=== PATIENT | female | born 1945 | race Caucasian/White ===

== ENCOUNTER → 2017-06-13 | Outpatient (CLI) | payer MEDICARE ==
--- NOTE | 2017-06-14 09:09 | MM ---
Reason for exam: screening (asymptomatic). Last mammogram was performed 2 years and 2 months ago. History: Patient is postmenopausal, has history of other cancer at age 64, and had first child at age 34. Physical Findings: A clinical breast exam by your physician is recommended on an annual basis and results should be correlated with mammographic findings. MG 3D Screening Mammo W/Cad Bilateral CC and MLO view(s) were taken. Prior study comparison: April 15, 2015, bilateral MG screening mammo w CAD. March 20, 2014, bilateral MG screening mammo w CAD. There are scattered fibroglandular densities. There is no discrete abnormality. No significant changes when compared with prior studies. ASSESSMENT: Negative, BI-RAD 1 RECOMMENDATION: Routine screening mammogram of both breasts in 1 year.
== END | disposition home or self-care (01) ==
LOC: RADMAMWWP 10:13
PROVIDERS: ATTEND Obstetrics & Gynecology
DX: Z12.31 Encounter for screening mammogram for malignant neoplasm of breast (principal)
CPT/HCPCS: 77063; 77067

== ENCOUNTER → 2017-06-13 | Outpatient (CLI) | payer MEDICARE ==
--- NOTE | 2017-06-13 12:39 | WWHP ---
[facility] - HISTORY AND PHYSICAL DATE OF SERVICE: 06/13/2017 CHIEF COMPLAINT: The patient is here for her routine gynecologic exam and mammogram. HPI: This is a 71-year-old, G3, P3 with an LMP of 1999. She states it has been around 2 years since her last pelvic exam. She is without gynecologic complaints and denies any postmenopausal bleeding. Her last mammogram on 04/15/2015 was benign. PAST MEDICAL HISTORY: Hypothyroidism, chronic hypertension, arthritis, gastroesophageal reflux disease and osteopenia. MEDICATIONS: 1. Synthroid 25 mcg daily. 2. Candesartan 12 mg with hydrochlorothiazide 32 mg daily. 3. [place]-3 supplement one t.i.d. 4. Zyloprim 300 mg daily. 5. Protonix 40 mg daily. ALLERGIES: Allergies to PENICILLIN, which caused rash and an irregular heartbeat. PAST SURGICAL HISTORY: Right oophorectomy during her in 1981 for a benign dermoid, right ankle surgery in 1972, colonoscopy 2016. PAST OB HISTORY: Three vaginal deliveries. PAST GANG PUSHER HISTORY: She has been menopausal since 1999 and has no history of STDs. SOCIAL HISTORY: She denies tobacco and drug use and has 0 to 1 alcohol-containing drink per week. She has been since 2012 and has not been sexually active since her divorce and is not seeing anybody at this time. 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 FAMILY HISTORY: Father had type 2 diabetes. REVIEW OF SYSTEMS: Weight has been stable. She denies respiratory, cardiac or GI problems. She denies maltreatment or falling. : She infrequently can have small urinary leakage if she holds her urine for a long time. PHYSICAL EXAM: Blood pressure 115/63, height 5 feet 4 inches, weight 158 pounds, BMI 26, temperature 97.2, pulse 74. This is a well-developed, well-nourished, white female, who is alert and oriented x3, in no acute distress. HEENT is within normal limits. NECK: Supple without mass or thyromegaly. CHEST AND LUNGS: Clear to auscultation. HEART: Regular rate and rhythm. Breasts are without mass or discharge. Axillary exam is negative for adenopathy. BACK: Negative for CVA tenderness. ABDOMEN: Soft, nontender, without palpable masses. PELVIC EXAM: External genitalia reveals [id number] atrophy without lesions. Cervix and vagina reveals [id number] atrophy without lesions. The cervix is stenotic secondary to atrophy. There is no evidence of prolapse. The uterus is mid position, nongravid size and nontender. There are no palpable adnexal masses or tenderness. Rectovaginal exam is negative for mass or tenderness and is negative for occult blood. EXTREMITIES: Nontender. IMPRESSION: 1. A 71-year-old menopausal female with normal gynecologic exam. 2. History of osteopenia. PLAN: 1. Pap smear was performed. 2. Self breast examination was discussed. 3. Screening mammogram was done today. 4. Osteoporosis prevention was discussed. I have recommended re-doing a bone density testing since it has been more than 4 years since her last one and an order slip was given to the patient for this. 5. She did receive a flu shot this past fall. 6. She will return in 1 year. MMSTANFORDL / KWAMEN: [id number] /
== END | disposition home or self-care (01) ==
LOC: WWCWWP 10:11
PROVIDERS: ATTEND Obstetrics & Gynecology
DX: Z53.9 Procedure and treatment not carried out, unspecified reason (principal)

== ENCOUNTER → 2017-07-02 | Outpatient (CLI) | payer MEDICARE ==
--- NOTE | 2017-07-02 13:48 | BD ---
EXAMINATION TYPE: MG DEXA axial skeleton. DATE OF EXAM: 07/02/2017 COMPARISON: 2013 CLINICAL HISTORY: POST MENOPAUSAL. Osteoporosis screening. Height: 5'3 Weight: 168 FRAX RISK QUESTIONS: Alcohol (3 or more units per day): no Family History (Parent hip fracture): yes Glucocorticoids (More than 3mos): no (Ex: prednisone, prednisolone, methylprednisolone, dexamethasone, and hydrocortisone). History of Fracture in Adulthood: yes Secondary Osteoporosis: 1. Type 1 Diabetes: no 2. Hyperthyroidism: no 3. Menopause before 45: no 4. Malnutrition: no 5. Chronic liver disease: no Rheumatoid Arthritis: no Current Tobacco Use: no RISK FACTORS HISTORY OF: Family History of Osteoporosis: y Postmenopausal woman: y Poor Health: MEDICATIONS: Thyroid Medications: Which medication: Levothyroxine How Lon years Additional Medications: blood pressure, cholesterol , high uric acid Additional History: skin cancer 10 years ag0 EXAM MEASUREMENTS: Bone mineral densitometry was performed using the Pure[employer] System. Bone mineral density as measured about the Lumbar spine is: ----- L1-L4(G/cm2): 1.214 T Score Values are as follows: ----- L2: -0.6 ----- L3: -0.3 ----- L4: 2.3 ----- L1-L4:0.3 Bone mineral density has: Decreased -5.0% since study of: 03/20/2014 Bone mineral density about the R hip (g/cm2): 0.858 Bone mineral density about the L hip (g/cm2): 0.923 T Score values are as follows: -----R Neck: -1.3 -----L Neck: -0.8 -----R Total: -0.2 -----L Total: 0.1 Bone mineral density has: Decreased -2.3% since study of: 03/20/2014 IMPRESSION: Osteopenia (T Score between -2.5 and -1) with regards to the right hip. There is slightly increased risk of fracture and the patient may be considered for treatment. Re-Screen 2-5 years. NOTE: T-SCORE=SD OF THE YOUNG ADULT MEAN.
== END | disposition home or self-care (01) ==
LOC: RADBDWWP 12:29
PROVIDERS: ATTEND Obstetrics & Gynecology
DX: M85.851 Other specified disorders of bone density and structure, right thigh (principal); Z78.0 Asymptomatic menopausal state
CPT/HCPCS: 77080

== ENCOUNTER → 2018-02-04 | Outpatient (CLI) | payer MEDICARE ==
--- NOTE | 2018-02-04 08:40 | CT ---
EXAMINATION TYPE: CT chest w con DATE OF EXAM: 02/04/2018 COMPARISON: NONE CT abdomen pelvis dated 01/28/2014 HISTORY: abnormal CXR. CT DLP: 343.1 mGycm. Automated Exposure Control for Dose Reduction was Utilized. TECHNIQUE: CT scan of the thorax is performed following with IV Contrast, patient injected with 100 mL of Isovue 300. FINDINGS: LUNGS: There is a 3 mm pulmonary nodule along the interlobar fissure on series 4 image 28. Calcified pleural-based pulmonary nodule seen along the posterior right lower lobe measuring 6 mm on image 33, benign. Along the right middle lobe on the same image there is a 5 mm region of focal pleural thicken ing. Within the left lung apex there is a 2 mm subpleural pulmonary nodule on image 13. Along the lef t interlobar fissure there are 2 pulmonary nodules that are elongated image 25 and 27 measuring 5 mm and 4 mm respectively. Calcified benign subpleural granuloma is present along the left lower lobe lat erally on image 37. Diffuse subpleural reticulation may represent atelectasis or early developing fibrosis. Very mild anabela trilobular emphysematous change is seen. No focal consolidation, pleural effusion or pneumothorax. MEDIASTINUM: There are no greater than 1 cm hilar or mediastinal lymph nodes. No pericardial effusi on is seen. Mild coronary artery calcifications are noted. OTHER: Slight thickening of the distal esophagus at the gastroesophageal junction may relate to incom plete distention or other etiology. Gallbladder surgically absent. 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 IMPRESSION: 1. Bilateral subcentimeter pulmonary nodules, some of which are benign and related to prior granuloma tous change. In regards to the noncalcified pulmonary nodules follow-up CT is recommended in 12 month s to establish stability given the largest size of 5 mm. 2. Subpleural reticulation that can be seen in atelectasis or early developing fibrosis. Minimal back ground centrilobular emphysema. 3. Possible left renal fat containing lesion such as angiomyolipoma versus volume averaging. 4. Mild circumferential distal esophageal thickening that may relate to incomplete distention, hepati tis or other etiology.
== END | disposition home or self-care (01) ==
LOC: RADCTMAIN 06:58
PROVIDERS: ATTEND Family Medicine
DX: J43.2 Centrilobular emphysema (principal); R91.8 Other nonspecific abnormal finding of lung field; Z88.0 Allergy status to penicillin; Z88.5 Allergy status to narcotic agent; Z88.2 Allergy status to sulfonamides; Z88.8 Allergy status to other drugs, medicaments and biological substances
CPT/HCPCS: 71260; Q9967

== ENCOUNTER → 2018-02-07 | Outpatient (CLI) | payer MEDICARE ==
--- NOTE | 2018-02-08 09:18 | CT ---
EXAMINATION TYPE: CT abdomen wo/w con DATE OF EXAM: 02/07/2018 COMPARISON: 01/28/2014 CT abdomen pelvis, CT chest 02/04/2018. INDICATION: LEFT KIDNEY MASS FOUND ON PRIOR CT DLP: 941.2 mGycm, Automated exposure control for dose reduction was used. CONTRAST: 100 mL of Isovue 300. Study performed with Oral Contrast TECHNIQUE: Axial images were obtained from above the diaphragm to the iliac crests in the axial plane at 5 mm thick sections. Reconstructed images are reviewed on the computer in the coronal plane. Pr e and postcontrast imaging is performed. FINDINGS: Limited CT sections are obtained the lung bases. There is some mild compressive atelectasis within t he dependent portion of the lung bases.. CT ABDOMEN: Liver: Normal Spleen: Normal Pancreas: Slightly atrophic. Adrenal glands: The adrenal glands are normal. Gallbladder: Surgically absent Kidneys: No masses are evident. No hydronephrosis is present. No cysts are present. Delayed images were obtained through the kidneys, which remain unremarkable. No discrete renal masses are identifie d. Findings appear to more likely be related to volume averaging. Aorta: Vascular calcification is within the aorta. There is a retroaortic left renal vein. Inferior vena cava: Normal. Loops of bowel within the abdomen visualized are normal. Fecal debris is within the colon. IMPRESSIONS: 1. No discrete renal mass.
== END | disposition home or self-care (01) ==
LOC: RADCTMAIN 10:36
PROVIDERS: ATTEND Family Medicine
DX: D17.71 Benign lipomatous neoplasm of kidney (principal); Z88.0 Allergy status to penicillin; Z88.1 Allergy status to other antibiotic agents; Z88.2 Allergy status to sulfonamides; Z88.4 Allergy status to anesthetic agent; Z88.5 Allergy status to narcotic agent
CPT/HCPCS: 74170; Q9967

== ENCOUNTER 2018-02-11 08:17 | Day surgery (SDC) | payer MEDICARE ==
[2018-02-07 11:29] VITALS: BMI 27.6
[2018-02-11 08:49] VITALS: RESP 18; TEMP 97.9
[2018-02-11] MEDS: LACTATED RINGERS 1,000 ML IV SCH ×2 (08:53→08:55)
[2018-02-11] MEDS ORDERED: LIDOCAINE 1% INJ 10MG/ML (20 ML MDV) ONE (08:55)
[2018-02-11] MEDS ORDERED: PROPOFOL 10 MG/ML 20 ML VIAL IV ONE (08:55)
[2018-02-11] MEDS ORDERED: ONDANSETRON 4 MG/2 ML VIAL ONE (08:55)
[2018-02-11] MEDS ORDERED: ONDANSETRON 4 MG/2 ML VIAL IM STA (08:56)
--- NOTE | 2018-02-11 08:57 | P.GSHP ---
History of Present Illness H&P Date: 02/11/18 Chief Complaint: GERD This is a 72-year-old female who's had complaints of epigastric pain and GERD. Patient has a history of peptic ulcer disease. Patient presents today for EGD. Past Medical History Past Medical History: Asthma, GERD/Reflux, Hypertension, Thyroid Disorder Additional Past Medical History / Comment(s): gout History of Any Multi-Drug Resistant Organisms: None Reported Past Surgical History: Cholecystectomy, Orthopedic Surgery Additional Past Surgical History / Comment(s): right ankle, rt oopherectomy Past Anesthesia/Blood Transfusion Reactions: Postoperative Nausea & Vomiting ( PONV) Smoking Status: Never smoker - Past Family History Mother Family Medical History: No Reported History Medications and Allergies Home Medications Medication Instructions Recorded Confirmed Type Allopurinol [Zyloprim] 300 mg PO DAILY 03/16/16 02/07/18 History Pantoprazole Sodium [Protonix] 40 mg PO DAILY 03/16/16 02/07/18 History Levothyroxine Sodium [Synthroid] 25 mcg PO DAILY 03/17/16 02/07/18 History [place]-3 Acid Ethyl Esters [Lovaza] 3 gm PO TID 03/17/16 02/07/18 History Candesartan/Hydrochlorothiazid 1 each PO DAILY 06/13/17 02/07/18 History [[place] Hct 32-12.5 mg Tab] Albuterol Inhaler [Ventolin Hfa 1 - 2 puff INHALATION RT-Q6H PRN 02/07/18 History Inhaler] Allergies Allergy/AdvReac Type Severity Reaction Status Date / Time Penicillins Allergy Rash/Hives Verified 02/07/18 11:19 Surgical - Exam Vital Signs Temp Pulse Resp BP Pulse Ox 97.9 F 78 18 149/79 97 02/11/18 08:48 02/11/18 08:48 02/11/18 08:48 02/11/18 08:48 02/11/18 08:48 - General well developed, well nourished, no distress - Eyes PERRL - ENT normal pinna - Neck no masses - Respiratory normal expansion - Cardiovascular Rhythm: regular - Abdomen Abdomen: soft, non tender Assessment and Plan Assessment: Epigastric pain and GERD History of peptic ulcer disease We'll perform EGD.
--- NOTE | 2018-02-11 09:09 | P.OP ---
Preoperative Diagnosis: GERD Postoperative Diagnosis: Antral gastritis No significant hiatal hernia Esophagitis pathology pending Procedure(s) Performed: Colonoscopy Anesthesia: MAC Surgeon: Jesus Redmond Pathology: other (Antral, esophagus) Condition: stable Disposition: PACU Description of Procedure: The patient's placed on the endoscopy table in the lateral position. She received IV sedation. The gastric was placed oropharynx passed in the esophagus and stomach. Scope was then placed through the pylorus. The first and second portion of the duodenum appeared normal. Scope was then brought back and stomach. The antrum appeared minimally inflamed a biopsies performed. Scope was unretroflexed and remainder of the stomachAppeared normal. There is no significant hiatal hernia. The GE junction was at 40 cm. The distal esophagus appeared mildly inflamed. There is evidence of a inflammatory went. A biopsies performed. The proximal esophagus appeared normal. Scope was withdrawn for patient.
[2018-02-11 09:30] VITALS: BP 124/85; PULSE 71
== END 2018-02-11 09:40 | disposition home or self-care (01) ==
LOC: ORWHC2ENDO 08:17
PROVIDERS: ATTEND Surgery
DX: K29.50 Unspecified chronic gastritis without bleeding (principal); K21.0 Gastro-esophageal reflux disease with esophagitis; J45.909 Unspecified asthma, uncomplicated; I10 Essential (primary) hypertension; E07.9 Disorder of thyroid, unspecified; M10.9 Gout, unspecified; Z88.0 Allergy status to penicillin; Z87.11 Personal history of peptic ulcer disease; Z79.890 Hormone replacement therapy; Z79.899 Other long term (current) drug therapy
CPT/HCPCS: 88305; 43239; J2405; J2001; J2704

== ENCOUNTER → 2018-04-04 | Outpatient (CLI) | payer MEDICARE | LOC: LABPAT 12:25 | PROVIDERS: ATTEND Surgery | DX: Z01.818 Encounter for other preprocedural examination (principal); Z01.812 Encounter for preprocedural laboratory examination; K21.9 Gastro-esophageal reflux disease without esophagitis; Z79.899 Other long term (current) drug therapy | CPT/HCPCS: 84132; 93005 ==

== ENCOUNTER 2018-04-05 06:59 | Day surgery (SDC) | payer MEDICARE ==
[2018-04-03 14:16] VITALS: BMI 27.8
[~2018-04-05 06:59] MED LIST: DEXAMETHASONE SOD PHOSPHATE 10 MG/ML 1 ML VIAL IV ONE; HEPARIN SODIUM,PORCINE 5,000 UNIT/ML 1 ML VIAL SQ ONE; LACTATED RINGERS 1,000 ML IV SCH; MIDAZOLAM (PF) 2 MG/2 ML VIAL IV PRN; ONDANSETRON 4 MG/2 ML VIAL IVP ONE; ceFAZolin IN SWFI 2 GM/20 ML SYRINGE IVP ONE
--- NOTE | 2018-04-05 07:49 | P.GSHP ---
History of Present Illness H&P Date: 04/05/18 Chief Complaint: GERD This is a 72-year-old female who's had significant history of GERD. 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 She presents today for laparoscopic Joe fundoplication. Past Medical History Past Medical History: Hypertension, Osteoarthritis (OA) Additional Past Medical History / Comment(s): hiatal hernia,hx uti History of Any Multi-Drug Resistant Organisms: None Reported Past Surgical History: Cholecystectomy Additional Past Surgical History / Comment(s): right ankle, rt oopherectomy Past Anesthesia/Blood Transfusion Reactions: Family History of Problems w/ Anesthesia, Postoperative Nausea & Vomiting (PONV) Additional Past Anesthesia/Blood Transfusion Reaction / Comment(s): sister has PONV Smoking Status: Never smoker - Past Family History Mother Family Medical History: No Reported History Medications and Allergies Home Medications Medication Instructions Recorded Confirmed Type Allopurinol [Zyloprim] 300 mg PO DAILY 03/16/16 04/05/18 History Pantoprazole Sodium [Protonix] 40 mg PO 1700 03/16/16 04/05/18 History Levothyroxine Sodium [Synthroid] 25 mcg PO QAM 03/17/16 04/05/18 History [place]-3 Acid Ethyl Esters [Lovaza] 3 gm PO TID 03/17/16 04/05/18 History Candesartan/Hydrochlorothiazid 1 each PO QAM 06/13/17 04/05/18 History [[place] Hct 32-12.5 mg Tab] Albuterol Inhaler [Ventolin Hfa 1 - 2 puff INHALATION RT-Q6H PRN 02/07/18 History Inhaler] Acetaminophen Tab [Tylenol Tab] 975 mg PO Q2D PRN 04/03/18 04/05/18 History Ibuprofen [Motrin] 400 mg PO Q2D PRN 04/03/18 04/05/18 History Allergies Allergy/AdvReac Type Severity Reaction Status Date / Time Penicillins Allergy Rash/Hives Verified 04/05/18 07:34 Surgical - Exam Vital Signs Temp Pulse Resp BP Pulse Ox 98.1 F 73 16 129/72 99 04/05/18 07:26 04/05/18 07:26 04/05/18 07:26 04/05/18 07:26 04/05/18 07:26 - General well developed, well nourished, no distress - Eyes PERRL - ENT normal pinna - Neck no masses - Respiratory normal expansion - Cardiovascular Rhythm: regular - Abdomen Abdomen: soft, non tender Assessment and Plan Assessment: GERD History of Parmar's esophagus We'll perform laparoscopic Joe fundoplication.
[2018-04-05] MEDS ORDERED: ePHEDrine SULFATE/0.9% NACL/PF 50 MG/5 ML SYRINGE IV ONE (07:52)
[2018-04-05] MEDS ORDERED: PROPOFOL 10 MG/ML 20 ML VIAL IV ONE (07:52)
[2018-04-05] MEDS ORDERED: GLYCOPYRROLATE 0.2 MG/ML 2 ML VIAL ONE (07:52)
[2018-04-05] MEDS ORDERED: SUCCINYLCHOLINE CHLORIDE 100 MG/5 ML SYR IV ONE (07:52)
[2018-04-05] MEDS ORDERED: MIDAZOLAM 2 MG/2 ML VIAL ONE (07:52)
[2018-04-05] MEDS ORDERED: ROCURONIUM BROMIDE 10 MG/ML 10 ML VIAL IV ONE (07:52)
[2018-04-05] MEDS ORDERED: LIDOCAINE 1% INJ 10MG/ML (20 ML MDV) ONE (07:52)
[2018-04-05] MEDS ORDERED: NEOSTIGMINE 1 MG/ML 10 ML VIAL ONE (07:52)
[2018-04-05] MEDS ORDERED: fentaNYL (PF) 50 MCG/ML 2 ML AMP ONE (07:52)
[2018-04-05] MEDS ORDERED: CLINDAMYCIN 150 MG/ML 4 ML VIAL IVPB ONE (08:00)
[2018-04-05] MEDS ORDERED: BUPIVACAIN-EPI 0.25%-1:200,000 30 ML VIAL SQ ONE (08:31)
[2018-04-05] MEDS ORDERED: LACTATED RINGERS 1,000 ML IV ONE (08:52)
[2018-04-05] MEDS: HYDROmorphone 0.5 MG/0.5 ML SYRINGE IVP PRN ×2 (09:34→09:39)
[2018-04-05] MEDS ORDERED: ONDANSETRON 4 MG/2 ML VIAL IVP PRN (09:39)
--- NOTE | 2018-04-05 10:01 | P.OP ---
Date of Procedure: 04/05/18 Preoperative Diagnosis: GERD Postoperative Diagnosis: GERD Procedure(s) Performed: Laparoscopic Joe fundoplication Anesthesia: TSERING Surgeon: Jesus Redmond Estimated Blood Loss (ml): 5 Pathology: none sent Condition: stable Disposition: PACU Description of Procedure: The patient was placed on the operating table in the supine position. The patient received general anesthesia. And was placed in dorsal lithotomy position. The patient was prepped and draped in the usual sterile fashion. The skin incision sites were anesthetized with 1% local Xylocaine. The skin was incised in the left periumbilical area and then using a blade less 5 mm trocar under direct visualization panel cavity was entered. After adequate insufflation the laparoscope was then placed into the peritoneal cavity. Next a 5 mm trochars placed in the right epigastric position. Another 5 millimeter trocar the right lateral position. Another 5 millimeter trocar in the left lateral position a 5 mm trocar is placed in the left epigastric position. And then the initial 5 mm trocar was exchanged for a 10 mm trocar. The left lateral lobe liver was retracted. The hernia was seen. The crural defect was then dissected using the Harmonic scissors device. A 360 crural dissection was performed the esophagus stomach was reduced back into the peritoneal Cavity. The crural defect was then closed using 2-0 Ethibond suture. Next the fundus of the stomach was mobilized using the [place] scissors device. and then a 58-Swedish bougie dilator was placed oropharynx passed into the esophagus and stomach the fundal plication wrap was then performed by grasping the fundus posteriorly and bringing it around the esophagus and stomach fundoplication was then performed using 2-0 Ethibond suture. Care was taken that the fundal location rested over top of the intra-abdominal esophagus. There was no injury seen to the stomach or esophagus. The dilator was then withdrawn. The abdomen was irrigated there is no bleeding seen. The trochars were then withdrawn and then skin incision sites were closed using 3-0 Monocryl suture Steri-Strips are applied. Patient thought procedure well and sent to recovery room in stable condition.
[2018-04-05] MEDS: HYDROmorphone 1 MG/ML 1 ML SYRINGE IVP PRN ×2 (12:25→16:45)
[2018-04-05] MEDS: METOCLOPRAMIDE 5 MG/ML 2 ML VIAL IVP SCH ×2 (12:29→18:30)
[2018-04-05] MEDS: D5-0.45% NACL WITH KCL 20MEQ/L 1,000 ML IV SCH (15:49)
--- NOTE | 2018-04-05 16:24 | FL ---
Single contrast esophagram EXAMINATION TYPE: FL esophagus cervic/pharynx DATE OF EXAM: 04/05/2018 3:47 PM COMPARISON: NONE Post Op Joe. 37 secs fluoro. 50 ml Isovue 370 given orally, Lot# [id number], EXP# Sep 2020. CLINICAL HISTORY: Status post [place] fundoplication The patient ingested contrast without difficulty or delay. Noted are changes of [place] fundoplicatio n. There is no evidence for leak or obstruction. Small amount of residual contrast within the distal esophagus. IMPRESSION: Post-surgical change of [place] fundoplication without evidence for leak or obstruction.
[2018-04-06] MEDS: FAMOTIDINE 20 MG/2 ML VIAL IV SCH ×2 (00:03→08:03)
[2018-04-06] MEDS: METOCLOPRAMIDE 5 MG/ML 2 ML VIAL IVP SCH ×2 (00:03→07:10)
[2018-04-06] MEDS: HYDROmorphone 1 MG/ML 1 ML SYRINGE IVP PRN (00:04)
[2018-04-06] MEDS: D5-0.45% NACL WITH KCL 20MEQ/L 1,000 ML IV SCH ×2 (00:04→03:06)
[2018-04-06] MEDS ORDERED: ACETAMINOPHEN TAB 325 MG TAB PO PRN (08:07)
[2018-04-06] MEDS ORDERED: ENOXAPARIN 40 MG/0.4 ML SYRINGE SQ SCH (09:00)
--- NOTE | 2018-04-06 12:02 | P.PN ---
Subjective Progress Note Date: 04/06/18 Principal diagnosis: Post-Joe Patient doing well today. Denies any significant pain. Tolerating liquids. Upper GI shows no obstruction. She is afebrile. Objective - Vital Signs Vital signs: Vital Signs Temp 98.4 F 04/06/18 07:55 Pulse 62 04/06/18 07:55 Resp 16 04/06/18 07:55 BP 101/57 04/06/18 07:55 Pulse Ox 94 L 04/06/18 07:55 Intake & Output 04/05/18 04/06/18 04/06/18 18:59 06:59 18:59 Intake Total 1900 Output Total 405 Balance 1495 Weight 71.214 kg Intake: IV 1300 Oral 600 Output: Urine 400 Estimated Blood Loss 5 Other: # Voids 1 1 3 # Bowel Movements 1 - Exam Abdomen: Soft, mild tenderness at incision sites, incisions clean and dry Assessment and Plan (1) GERD (gastroesophageal reflux disease) Narrative/Plan: Continue liquid diet. May discharge today. Follow-up one week. Current Visit: Yes Status: Acute Code(s): K21.9 - GASTRO-ESOPHAGEAL REFLUX DISEASE WITHOUT ESOPHAGITIS SNOMED Code(s): 436234796
[2018-04-06 12:21] VITALS: BP 123/68; PULSE 56; RESP 18; TEMP 98
== END 2018-04-06 13:17 ==
LOC: OR 06:59 → 6PED 09:48 → OR 04-06 13:17
PROVIDERS: ATTEND Surgery
DX: K22.70 Barrett's esophagus without dysplasia (principal); K21.9 Gastro-esophageal reflux disease without esophagitis; I10 Essential (primary) hypertension; M19.90 Unspecified osteoarthritis, unspecified site; Z79.890 Hormone replacement therapy; Z79.899 Other long term (current) drug therapy; Z88.0 Allergy status to penicillin; E07.9 Disorder of thyroid, unspecified
CPT/HCPCS: 74210; 43280; J1644; J1100; J2765 ×2; J2405; J1650; J1170 ×3; Q9967

== ENCOUNTER 2018-05-06 10:28 | Day surgery (SDC) | payer MEDICARE ==
[2018-05-02 12:37] VITALS: BMI 26.7
[~2018-05-06 10:28] MED LIST changes: -DEXAMETHASONE SOD PHOSPHATE 10 MG/ML 1 ML VIAL IV ONE; -HEPARIN SODIUM,PORCINE 5,000 UNIT/ML 1 ML VIAL SQ ONE; -MIDAZOLAM (PF) 2 MG/2 ML VIAL IV PRN; -ONDANSETRON 4 MG/2 ML VIAL IVP ONE; -ceFAZolin IN SWFI 2 GM/20 ML SYRINGE IVP ONE
[2018-05-06 10:58] VITALS: RESP 16; TEMP 97.4
[2018-05-06] MEDS ORDERED: ONDANSETRON 4 MG/2 ML VIAL IVP ONE (11:12)
[2018-05-06] MEDS ORDERED: PROPOFOL 10 MG/ML 20 ML VIAL IV ONE (12:06)
--- NOTE | 2018-05-06 12:09 | P.GSHP ---
History of Present Illness H&P Date: 05/06/18 Chief Complaint: GI bleed This is a 72-year-old female who has had a positive colon guard Test. Patient presents today for colonoscopy for GI bleed. Past Medical History Past Medical History: Hypertension, Osteoarthritis (OA) Additional Past Medical History / Comment(s): positive cologard, taking antibiotic for uti History of Any Multi-Drug Resistant Organisms: None Reported Past Surgical History: Cholecystectomy, Orthopedic Surgery Additional Past Surgical History / Comment(s): right ankle, rt oopherectomy. Lap meeta Past Anesthesia/Blood Transfusion Reactions: Family History of Problems w/ Anesthesia, Postoperative Nausea & Vomiting (PONV) Additional Past Anesthesia/Blood Transfusion Reaction / Comment(s): sister has PONV Smoking Status: Never smoker - Past Family History Mother Family Medical History: No Reported History Medications and Allergies Home Medications Medication Instructions Recorded Confirmed Type Allopurinol [Zyloprim] 300 mg PO DAILY 03/16/16 05/02/18 History Levothyroxine Sodium [Synthroid] 25 mcg PO QAM 03/17/16 05/06/18 History [place]-3 Acid Ethyl Esters [Lovaza] 3 gm PO TID 03/17/16 05/02/18 History Candesartan/Hydrochlorothiazid 1 each PO QAM 06/13/17 05/02/18 History [[place] Hct 32-12.5 mg Tab] Albuterol Inhaler [Ventolin Hfa 1 - 2 puff INHALATION RT-Q6H PRN 02/07/18 History Inhaler] Acetaminophen Tab [Tylenol Tab] 500 mg PO BID PRN 04/03/18 05/02/18 History Cetirizine HCl [Zyrtec] 10 mg PO DAILY 05/02/18 05/02/18 History Ciprofloxacin HCl [Cipro] 500 mg PO Q12HR 05/02/18 05/02/18 History Allergies Allergy/AdvReac Type Severity Reaction Status Date / Time Penicillins Allergy Severe Rash/Hives Verified 05/02/18 12:17 Surgical - Exam Vital Signs Temp Pulse Resp BP Pulse Ox 97.4 F L 71 16 137/65 97 05/06/18 10:57 05/06/18 10:57 05/06/18 10:57 05/06/18 10:57 05/06/18 10:57 - General well developed, no distress - Eyes PERRL - ENT normal pinna - Neck no masses - Respiratory normal expansion - Cardiovascular Rhythm: regular - Abdomen Abdomen: soft, non tender Assessment and Plan Assessment: GI bleed. We'll perform colonoscopy.
--- NOTE | 2018-05-06 12:23 | P.OP ---
Date of Procedure: 05/06/18 Preoperative Diagnosis: GI bleed Postoperative Diagnosis: External hemorrhoids Diverticulosis Procedure(s) Performed: Colonoscopy Anesthesia: MAC Surgeon: Jesus Redmond Pathology: none sent Condition: stable Disposition: PACU Description of Procedure: The patient's placed on the endoscopy table in the lateral position. She received IV sedation. The digital rectal exam was performed which revealed no ebonized. The flexible colonoscope was then placed patient anus and passed throughout the entire colon. The ileocecal valve was visualized. Cecum, ascending and transverse colon appeared normal. In the descending and sigmoid colon there is extensive diverticular changes. There is no evidence of active diverticulitis. The scope was then brought back the rectum and this appeared normal. Scope withdrawn through the anus and internal and external hemorrhoids are seen. The scope was withdrawn for patient. There is known to any active GI bleed. It is presumed that the patient's positive GI bleed test was due to hemorrhoids or the diverticular.
[2018-05-06 13:02] VITALS: BP 118/76; PULSE 70
== END 2018-05-06 13:36 | disposition home or self-care (01) ==
LOC: ORWHC2ENDO 10:28
PROVIDERS: ATTEND Surgery
DX: K57.30 Diverticulosis of large intestine without perforation or abscess without bleeding (principal); K64.4 Residual hemorrhoidal skin tags; K64.8 Other hemorrhoids; I10 Essential (primary) hypertension; M19.90 Unspecified osteoarthritis, unspecified site; Z88.0 Allergy status to penicillin; Z79.899 Other long term (current) drug therapy; Z79.890 Hormone replacement therapy; Z90.49 Acquired absence of other specified parts of digestive tract; Z79.2 Long term (current) use of antibiotics
CPT/HCPCS: 45378; J2405; J2704

== ENCOUNTER → 2018-06-25 | Outpatient (CLI) | payer MEDICARE ==
[2018-06-25 11:00] VITALS: BP 117/58; PULSE 81; RESP 18; TEMP 96.5; BMI 26.5
--- NOTE | 2018-06-25 13:00 | P.HPOB ---
History of Present Illness H&P Date: 06/25/18 Chief Complaint: The patient is here for her routine gynecologic exam and ma mmogram. This is a 72 year old G3 PIII with an LMP of 2000. The patient states she has had recurrent urinary tract infections during the past year. She states she is typically gotten one or 2 per year but seems to have gotten them much more frequently this year. She has been treated by her primary care physician and has also seen a urologist for this. She was prescribed estrogen vaginal cream by one of her physicians. She is otherwise without complaints and denies any urinary symptoms at this time. Her last urinary tract infection was treated about 6 weeks ago. She is not sexually active and has not been sexually active during the past year. She denies any postmenopausal bleeding. She is requesting to have her urine tested to see if she has an early urinary tract infection. Review of Systems She has lost about 8 pounds over the last year.. She denies respiratory, cardiac and G.I. problems. She denies maltreatment or problems with falling. : she denies any significant problems with urinary leakage. She has had recurrent urinary tract infections as in the HPI. Past Medical History Past Medical History: GERD/Reflux, Hypertension, Osteoarthritis (OA), Thyroid Disorder Additional Past Medical History / Comment(s): Hypothyroid. Osteopenia. 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 Previous record of rectory for dermoid cyst in 1981. History of Any Multi-Drug Resistant Organisms: None Reported Past Surgical History: Cholecystectomy, Orthopedic Surgery Additional Past Surgical History / Comment(s): right ankle, rt oopherectomy. 04/05/2018 Lap meeta for hiatal hernia. Colonoscopy 2014. Past Anesthesia/Blood Transfusion Reactions: Family History of Problems w/ Anesthesia, Postoperative Nausea & Vomiting (PONV) Additional Past Anesthesia/Blood Transfusion Reaction / Comment(s): sister has PONV Past Psychological History: Depression Smoking Status: Never smoker Past Alcohol Use History: Rare (0 to 1 per month) Past Drug Use History: None Reported Additional History: She has been since 2012 has not been sexually active and is not seen anybody at this time. 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 - Past Family History Mother Family Medical History: No Reported History Father Family Medical History: Diabetes Mellitus Medications and Allergies Home Medications Medication Instructions Recorded Confirmed Type Allopurinol [Zyloprim] 300 mg PO DAILY 03/16/16 05/02/18 History Levothyroxine Sodium [Synthroid] 25 mcg PO QAM 03/17/16 05/06/18 History [place]-3 Acid Ethyl Esters [Lovaza] 3 gm PO TID 03/17/16 05/02/18 History Candesartan/Hydrochlorothiazid 1 each PO QAM 06/13/17 05/02/18 History [Atacand Hct 32-12.5 mg Tab] Cetirizine HCl [Zyrtec] 10 mg PO DAILY 05/02/18 05/02/18 History Azithromycin [Zithromax] 500 mg PO DAILY 06/25/18 06/25/18 History Estradiol Cream [Estrace Cream 1 gm VAGINAL Q7DAYS 06/25/18 06/25/18 History 0.01%] Fluconazole 200 mg PO DAILY 06/25/18 06/25/18 History Allergies Allergy/AdvReac Type Severity Reaction Status Date / Time Penicillins Allergy Severe Rash/Hives Verified 06/25/18 10:50 Exam Vital Signs Temp Pulse Resp BP Pulse Ox 06/25/18 10:56 96.5 F L 81 18 117/58 95 Intake and Output 06/24/18 06/25/18 06/25/18 22:59 06:59 14:59 Other: Weight 68.039 kg Height 5'3", weight 150 pounds, BMI 26.6. This is a well-developed well-nourished white female who is alert and oriented times 3 in no acute distress. HEENT: Within normal limits. NECK: Supple without mass or thyromegaly. CHEST AND LUNGS: Clear to auscultation. HEART: Regular rate and rhythm. BREASTS: Are without mass or discharge. AXILLARY EXAM: Negative for adenopathy. BACK: Negative for CVA tenderness. ABDOMEN: Soft, nontender, without palpable masses. PELVIC EXAM: Normal external genitalia with mild to moderate atrophy. Cervix and vagina appear normal with mild to moderate atrophy. There is no unusual discharge. There is a grade 1 to 2 rectocele. There is no evidence of cystocele even with Valsalva. There is no evidence of the uterine prolapse. The uterus is midposition, nongravid size and nontender. There are no palpable adnexal masses or tenderness. RECTAL EXAM: rectovaginal exam is negative for mass or tenderness and is negative for occult blood and confirms a small rectocele. EXTREMITIES: Nontender. IMPRESSION: 1. 72-year-old menopausal female with grade 1 to 2 rectocele which is asy mptomatic. 2. History of recurrent urinary tract infections per the patient. PLAN: 1. Pap smear was deferred associated normal one on 06/13/2017. 2. Self breast awareness was discussed with the patient. 3. Screening mammogram will be done today. 4. Clean catch urinalysis and culture with sensitivity have been obtained. 5. We have had a long discussion regarding her urinary tract infections. She will try using some estrogen cream that has been already prescribed to her near the urethral opening. She will also try to completely empty the bladder by spending more time on the toilet and by relaxing and not straining. If she continues to have recurrent urinary tract infections, I have recommended that she see her urologist for this. 6. She states she is planning on doing a colonoscopy in the near future because of a positive cologuard test. This is being arranged by her primary care physician. 7. She was advised to return in one year for her annual well woman exam.
[2018-06-25 20:39] LABS: Appearance,Urine Clear (Clear); Bilirubin,Urine Negative (Negative); Blood,Urine Negative (Negative); Color,Urine Yellow; Glucose,Urine (UA) Negative (Negative); Ketones,Urine Negative (Negative); Leukocyte Esterase,Urine Negative (Negative); Nitrite,Urine Negative (Negative); PH, Urine 5.5 (5.0-8.0); Protein,Urine Negative (Negative); Specific Gravity,Urine 1.017 (1.001-1.035); Urobilinogen,Urine <2.0 mg/dL (<2.0)
--- NOTE | 2018-06-26 10:16 | MM ---
Reason for exam: screening (asymptomatic). Last mammogram was performed 1 year ago. History: Patient is postmenopausal, has history of other cancer at age 64, and had first child at age 34. Physical Findings: A clinical breast exam by your physician is recommended on an annual basis and results should be correlated with mammographic findings. MG 3D Screening Mammo W/Cad Bilateral CC and MLO view(s) were taken. Prior study comparison: June 13, 2017, bilateral MG 3d screening mammo w/cad. April 15, 2015, bilateral MG screening mammo w CAD. There are scattered fibroglandular densities. There are benign appearing round calcifications bilaterally. There is chronic nodularity in the right breast. There is no discrete abnormality. ASSESSMENT: Benign, BI-RAD 2 RECOMMENDATION: Routine screening mammogram of both breasts in 1 year.
== END | disposition home or self-care (01) ==
LOC: WWCWWP 10:33
PROVIDERS: ATTEND Obstetrics & Gynecology
DX: Z12.31 Encounter for screening mammogram for malignant neoplasm of breast (principal); Z87.440 Personal history of urinary (tract) infections
CPT/HCPCS: 77063; 77067; 81003; 87086

== ENCOUNTER 2018-10-13 12:21 | Inpatient (IN) | payer MEDICARE ==
[2018-10-13] MEDS ORDERED: SODIUM CHLORIDE 0.9% 500 ML 500 ML IV STA (12:45)
--- NOTE | 2018-10-13 12:58 | ED ---
General Adult HPI - General Chief complaint: Abdominal Pain Stated complaint: Poss appendicitis Time Seen by Provider: 10/13/18 12:39 Source: patient, RN notes reviewed Mode of arrival: ambulatory Limitations: no limitations - History of Present Illness Initial comments: 72-year-old female with a past medical history of hypertension, GERD, hypothyroidism, osteoarthritis presents to the emergency department for a chief complaint of Right lower quadrant pain 2-3 days. Patient states she has noticed this pain and it is a sharp pain in nature. States it is pretty constant in nature. States she has a history of diverticulitis but this feels different. States she was seen at urgent care where she had a urinalysis done that was negative and sent to the emergency department for rule out appendicitis. Patient denies any fevers or chills. Denies any nausea vomiting or diarrhea. States bowel movements are normal. Patient has had a cholecystect lillie and a right oophorectomy. Patient did have a Joe fundoplication completed by Dr. Redmond in March and a normal colonoscopy in April.Patient has no other complaints at this time including shortness of breath, chest pain, abdominal pain, nausea or vomiting, headache, or visual changes. - Related Data Home Medications Medication Instructions Recorded Confirmed Allopurinol [Zyloprim] 300 mg PO DAILY 03/16/16 05/02/18 Levothyroxine Sodium [Synthroid] 25 mcg PO QAM 03/17/16 05/06/18 [place]-3 Acid Ethyl Esters [Lovaza] 3 gm PO TID 03/17/16 05/02/18 Candesartan/Hydrochlorothiazid 1 each PO QAM 06/13/17 05/02/18 [Atacand Hct 32-12.5 mg Tab] Cetirizine HCl [Zyrtec] 10 mg PO DAILY 05/02/18 05/02/18 Azithromycin [Zithromax] 500 mg PO DAILY 06/25/18 06/25/18 Estradiol Cream [Estrace Cream 1 gm VAGINAL Q7DAYS 06/25/18 06/25/18 0.01%] Fluconazole 200 mg PO DAILY 06/25/18 06/25/18 Allergies Allergy/AdvReac Type Severity Reaction Status Date / Time Penicillins Allergy Severe Rash/Hives Verified 10/13/18 12:37 Sulfa (Sulfonamide Allergy Rash/Hives Verified 10/13/18 12:37 Antibiotics) Review of Systems ROS Statement: Those systems with pertinent positive or pertinent negative responses have been documented in the HPI. ROS Other: All systems not noted in ROS Statement are negative. Past Medical History Past Medical History: GERD/Reflux, Hypertension, Osteoarthritis (OA), Thyroid Disorder Additional Past Medical History / Comment(s): Hypothyroid. Osteopenia.dermoid cyst in 1982. History of Any Multi-Drug Resistant Organisms: None Reported Past Surgical History: Cholecystectomy, Orthopedic Surgery Additional Past Surgical History / Comment(s): right ankle, rt oopherectomy. 04/05/2018 Lap joe for hiatal hernia. Colonoscopy 2014. Past Anesthesia/Blood Transfusion Reactions: Family History of Problems w/ Anesthesia, Postoperative Nausea & Vomiting (PONV) Additional Past Anesthesia/Blood Transfusion Reaction / Comment(s): sister has PONV Past Psychological History: Depression Smoking Status: Never smoker Past Alcohol Use History: Rare Past Drug Use History: None Reported - Past Family History Mother Family Medical History: No Reported History Father Family Medical History: Diabetes Mellitus General Exam Limitations: no limitations General appearance: alert, in no apparent distress Head exam: Present: atraumatic, normocephalic, normal inspection Eye exam: Present: normal appearance, PERRL, EOMI. Absent: scleral icterus, conjunctival injection, periorbital swelling ENT exam: Present: normal exam, mucous membranes moist Neck exam: Present: normal inspection, full ROM. Absent: tenderness, meningismus, lymphadenopathy Respiratory exam: Present: normal lung sounds bilaterally. Absent: respiratory distress, wheezes, rales, rhonchi, stridor Cardiovascular Exam: Present: regular rate, normal rhythm, normal heart sounds. Absent: systolic murmur, diastolic murmur, rubs, gallop, clicks GI/Abdominal exam: Present: soft, tenderness (Right lower quadrant tenderness, no rebound or guarding.), normal bowel sounds. Absent: distended, guarding, rebound, rigid Neurological exam: Present: alert, oriented X3, CN II-XII intact Psychiatric exam: Present: normal affect, normal mood Course Vital Signs 10/13/18 10/13/18 12:34 15:02 Temperature 98.2 F Pulse Rate 68 65 Respiratory 18 16 Rate Blood Pressure 116/76 122/82 O2 Sat by Pulse 98 98 Oximetry Medical Decision Making - Medical Decision Making 72-year-old female with a past medical history of hypertension, GERD, hypothyroidism presents to the emergency department for a chief complaint of right lower quadrant pain 2-3 days. Patient states she has noticed this pain pretty consistently for the past few days. Patient does have a history of diverticulitis but this feels different. States she was seen at urgent care and they were concerned about appendicitis so sent her to the emergency department. Vitals are stable throughout her ER stay. On examination patient does have some right lower quadrant tenderness, no guarding or rebound. No McBurney point tenderness. She also has some suprapubic tenderness. No significant left lower quadrant tenderness. CBC does show a hemoglobin of 8.8. Patient apparently does not have a history of anemia but is in no distress at this time. Occult blood was negative. CMP is unremarkable. CT abdomen and pelvis with contrast that show acute mid sigmoid diverticulitis with mild to moderate surrounding inflammatory change. No abscess or free air. There is also a vague hypodense area in the pancreatic head. Not clearly seen previously. Recommends correlation with tomorrow markers and CT versus MRI to exclude early mass. Because of these findings patient will be admitted for IV antibiotics as well as GI consult. - Lab Data Result diagrams: 10/13/18 13:15 10/13/18 13:15 Lab Results 10/13/18 10/13/18 10/13/18 Range/Units 13:15 13:15 13:15 WBC 6.2 (3.8-10.6) k/uL RBC 2.81 L (3.80-5.40) m/uL Hgb 8.8 L (11.4-16.0) gm/dL Hct 26.7 L (34.0-46.0) % MCV 95.1 (80.0-100.0) fL MCH 31.4 (25.0-35.0) pg MCHC 33.0 (31.0-37.0) g/dL RDW 15.7 H (11.5-15.5) % Plt Count 387 (150-450) k/uL Neutrophils % 60 % Lymphocytes % 22 % Monocytes % 7 % Eosinophils % 7 % Basophils % 1 % Neutrophils # 3.7 (1.3-7.7) k/uL Lymphocytes # 1.3 (1.0-4.8) k/uL Monocytes # 0.5 (0-1.0) k/uL Eosinophils # 0.4 (0-0.7) k/uL Basophils # 0.1 (0-0.2) k/uL PT (9.0-12.0) sec INR (<1.2) APTT (22.0-30.0) sec Sodium 138 (137-145) mmol/L Potassium 4.2 (3.5-5.1) mmol/L Chloride 98 (98-107) mmol/L Carbon Dioxide 29 (22-30) mmol/L Anion Gap 11 mmol/L BUN 11 (7-17) mg/dL Creatinine 0.74 (0.52-1.04) mg/dL Est GFR (CKD-EPI)AfAm >90 (>60 ml/min/1.73 sqM) Est GFR (CKD-EPI)NonAf 83 (>60 ml/min/1.73 sqM) Glucose 90 (74-99) mg/dL Plasma Lactic Acid Dre 1.2 (0.7-2.0) mmol/L Calcium 9.8 (8.4-10.2) mg/dL Total Bilirubin 0.6 (0.2-1.3) mg/dL AST 30 (14-36) U/L ALT 32 (9-52) U/L Alkaline Phosphatase 79 (38-126) U/L Total Protein 7.8 (6.3-8.2) g/dL Albumin 4.6 (3.5-5.0) g/dL Amylase 57 (30-110) U/L Lipase 69 (23-300) U/L Urine Color Urine Appearance (Clear) Urine pH (5.0-8.0) Ur Specific [place] (1.001-1.035) Urine Protein (Negative) Urine Glucose (UA) (Negative) Urine Ketones (Negative) Urine Blood (Negative) Urine Nitrite (Negative) Urine Bilirubin (Negative) Urine Urobilinogen (<2.0) mg/dL Ur Leukocyte Esterase (Negative) Stool Occult Blood (Negative) Blood Type Blood Type Recheck Antibody Screen Spec Expiration Date 10/13/18 10/13/18 10/13/18 Range/Units 13:15 13:15 13:35 WBC (3.8-10.6) k/uL RBC (3.80-5.40) m/uL Hgb (11.4-16.0) gm/dL Hct (34.0-46.0) % MCV (80.0-100.0) fL MCH (25.0-35.0) pg MCHC (31.0-37.0) g/dL RDW (11.5-15.5) % Plt Count (150-450) k/uL Neutrophils % % Lymphocytes % % Monocytes % % Eosinophils % % Basophils % % Neutrophils # (1.3-7.7) k/uL Lymphocytes # (1.0-4.8) k/uL Monocytes # (0-1.0) k/uL Eosinophils # (0-0.7) k/uL Basophils # (0-0.2) k/uL PT 9.6 (9.0-12.0) sec INR 0.9 (<1.2) APTT 23.8 (22.0-30.0) sec Sodium (137-145) mmol/L Potassium (3.5-5.1) mmol/L Chloride (98-107) mmol/L Carbon Dioxide (22-30) mmol/L Anion Gap mmol/L BUN (7-17) mg/dL Creatinine (0.52-1.04) mg/dL Est GFR (CKD-EPI)AfAm (>60 ml/min/1.73 sqM) Est GFR (CKD-EPI)NonAf (>60 ml/min/1.73 sqM) Glucose (74-99) mg/dL Plasma Lactic Acid Dre (0.7-2.0) mmol/L Calcium (8.4-10.2) mg/dL Total Bilirubin (0.2-1.3) mg/dL AST (14-36) U/L ALT (9-52) U/L Alkaline Phosphatase (38-126) U/L Total Protein (6.3-8.2) g/dL Albumin (3.5-5.0) g/dL Amylase (30-110) U/L Lipase (23-300) U/L Urine Color Yellow Urine Appearance Clear (Clear) Urine pH 5.5 (5.0-8.0) Ur Specific [place] 1.020 (1.001-1.035) Urine Protein Negative (Negative) Urine Glucose (UA) Negative (Negative) Urine Ketones 1+ H (Negative) Urine Blood Negative (Negative) Urine Nitrite Negative (Negative) Urine Bilirubin Negative (Negative) Urine Urobilinogen <2.0 (<2.0) mg/dL Ur Leukocyte Esterase Negative (Negative) Stool Occult Blood (Negative) Blood Type O Positive Blood Type Recheck CABO Indicated Antibody Screen NEGATIVE Spec Expiration Date 10/16/2018 - 231410/13/18 Range/Units 14:37 WBC (3.8-10.6) k/uL RBC (3.80-5.40) m/uL Hgb (11.4-16.0) gm/dL Hct (34.0-46.0) % MCV (80.0-100.0) fL MCH (25.0-35.0) pg MCHC (31.0-37.0) g/dL RDW (11.5-15.5) % Plt Count (150-450) k/uL Neutrophils % % Lymphocytes % % Monocytes % % Eosinophils % % Basophils % % Neutrophils # (1.3-7.7) k/uL Lymphocytes # (1.0-4.8) k/uL Monocytes # (0-1.0) k/uL Eosinophils # (0-0.7) k/uL Basophils # (0-0.2) k/uL PT (9.0-12.0) sec INR (<1.2) APTT (22.0-30.0) sec Sodium (137-145) mmol/L Potassium (3.5-5.1) mmol/L Chloride (98-107) mmol/L Carbon Dioxide (22-30) mmol/L Anion Gap mmol/L BUN (7-17) mg/dL Creatinine (0.52-1.04) mg/dL Est GFR (CKD-EPI)AfAm (>60 ml/min/1.73 sqM) Est GFR (CKD-EPI)NonAf (>60 ml/min/1.73 sqM) Glucose (74-99) mg/dL Plasma Lactic Acid Dre (0.7-2.0) mmol/L Calcium (8.4-10.2) mg/dL Total Bilirubin (0.2-1.3) mg/dL AST (14-36) U/L ALT (9-52) U/L Alkaline Phosphatase (38-126) U/L Total Protein (6.3-8.2) g/dL Albumin (3.5-5.0) g/dL Amylase (30-110) U/L Lipase (23-300) U/L Urine Color Urine Appearance (Clear) Urine pH (5.0-8.0) Ur Specific [place] (1.001-1.035) Urine Protein (Negative) Urine Glucose (UA) (Negative) Urine Ketones (Negative) Urine Blood (Negative) Urine Nitrite (Negative) Urine Bilirubin (Negative) Urine Urobilinogen (<2.0) mg/dL Ur Leukocyte Esterase (Negative) Stool Occult Blood Negative (Negative) Blood Type Blood Type Recheck Antibody Screen Spec Expiration Date Disposition Clinical Impression: Diverticulitis, Anemia, Pancreatic mass Disposition: ADMITTED IP TO THIS HOSP Is patient prescribed a controlled substance at d/c from ED?: No Referrals: Reza Cook DO [Primary Care Provider] - 1-2 days Time of Disposition: 15:18
[2018-10-13 13:32] LABS: Basophils # (A) 0.1 k/uL (0-0.2); Basophils % (A) 1 %; Eosinophils # (A) 0.4 k/uL (0-0.7); Eosinophils % (A) 7 %; HCT 26.7 % (34.0-46.0); HGB 8.8 gm/dL (11.4-16.0); Lymphocytes # (A) 1.3 k/uL (1.0-4.8); Lymphocytes % (A) 22 %; MCH 31.4 pg (25.0-35.0); MCV 95.1 fL (80.0-100.0); Monocytes # (A) 0.5 k/uL (0-1.0); Monocytes % (A) 7 %; Neutrophils # (A) 3.7 k/uL (1.3-7.7); Neutrophils % (A) 60 %; Platelet Count 387 k/uL (150-450); RBC 2.81 m/uL (3.80-5.40); RDW 15.7 % (11.5-15.5); WBC 6.2 k/uL (3.8-10.6)
[2018-10-13 13:40] LABS: ALT 32 U/L (9-52); AST 30 U/L (14-36); African American GFR (CKD) >90 (>60 ml/min/1.73 sqM); Albumin 4.6 g/dL (3.5-5.0); Alkaline Phosphatase 79 U/L (38-126); Amylase 57 U/L (30-110); Anion Gap 11 mmol/L; Blood Urea Nitrogen 11 mg/dL (7-17); Calcium 9.8 mg/dL (8.4-10.2); Carbon Dioxide 29 mmol/L (22-30); Chloride 98 mmol/L (98-107); Glucose 90 mg/dL (74-99); Lipase 69 U/L (23-300); Potassium 4.2 mmol/L (3.5-5.1); Sodium 138 mmol/L (137-145); Total Bilirubin 0.6 mg/dL (0.2-1.3); Total Protein 7.8 g/dL (6.3-8.2)
[2018-10-13 13:43] LABS: Appearance,Urine Clear (Clear); Bilirubin,Urine Negative (Negative); Blood,Urine Negative (Negative); Color,Urine Yellow; Glucose,Urine (UA) Negative (Negative); Ketones,Urine 1+ (Negative); Leukocyte Esterase,Urine Negative (Negative); Nitrite,Urine Negative (Negative); PH, Urine 5.5 (5.0-8.0); Protein,Urine Negative (Negative); Urobilinogen,Urine <2.0 mg/dL (<2.0)
[2018-10-13 14:30] LABS: INR 0.9 (<1.2); Partial Thromboplastin Time 23.8 sec (22.0-30.0); Prothrombin Time 9.6 sec (9.0-12.0)
--- NOTE | 2018-10-13 14:46 | CT ---
EXAMINATION TYPE: CT abdomen pelvis w con DATE OF EXAM: 10/13/2018 COMPARISON: 02/07/2018 HISTORY: 72-year-old female Right lower quadrant pain. TECHNIQUE: Contiguous axial scanning of the abdomen and pelvis following administration of 100 ml Iso naomie 300 IV contrast. Delayed images through the kidneys and coronal/sagittal reconstructions perform ed. CT DLP: 800.8 mGycm Automated exposure control for dose reduction was used. FINDINGS: Heart upper limits of normal in size without pericardial effusion. Strandy bibasilar atelectasis or s carring. Postsurgical changes of Joe fundoplication are demonstrated. No focal liver lesion. Mild prominence to the bile duct unchanged post cholecystectomy status. There is a vague area of 1.4 x 0.7 cm hypodensity in the pancreatic head region which is not really s een previously, reference axial image 32. Cholecystectomy clips. Portal venous system is patent. Adrenal glands, kidneys, spleen appear within normal limits. Some prominent fluid-filled small bowel loops in the pelvis and also the left side of the abdomen jose david suring up to 2.9 cm. No dilated small bowel loops or discrete transition point is identified. No mesenteric or retroperitoneal lymphadenopathy. Retroaortic left renal vein. Postsurgical changes right lower quadrant could relate to prior appendectomy or prior bowel resection . There is sigmoid diverticulosis with focal wall thickening and mild to moderate surrounding pericolon ic inflammatory fat stranding along the mid sigmoid. Bladder nondistended. Uterus is visualized. Ovaries not well seen, either small or surgically absent. No abnormal fluid collection in the pelvis or pelvic adenopathy seen. Mild degenerative changes at the hips. Facet arthropathy and degenerative disc disease mid to lower l umbar spine. IMPRESSION: 1. EXAM POSITIVE FOR ACUTE MID SIGMOID DIVERTICULITIS. THERE IS [id number] SURROUNDING INFLAMMA TORY CHANGE WITHOUT ABSCESS OR FREE AIR. 2. SECONDARY MILD SMALL BOWEL ILEUS. 3. A VAGUE 1.4 X 0.7 CM HYPODENSE AREA IN THE PANCREATIC HEAD REGION COULD BE PARTIAL VOLUME AVERAGIN G ARTIFACT. THIS WAS NOT CLEARLY SEEN PREVIOUSLY, RECOMMEND CORRELATION WITH TUMOR MARKERS AND TEJINDER SE TWO-MONTH FOLLOW-UP PANCREAS PROTOCOL CT OR MRI TO EXCLUDE AN EARLY SMALL MASS.
[2018-10-13] MEDS ORDERED: NALOXONE 0.4 MG/ML 1 ML VIAL IV PRN (15:19)
[2018-10-13] MEDS ORDERED: MORPHINE SULFATE 4 MG/ML SYRINGE IV PRN (15:19)
[2018-10-13] MEDS ORDERED: ONDANSETRON 4 MG/2 ML VIAL IVP PRN (15:19)
[2018-10-13] MEDS: SODIUM CHLORIDE 0.9% 1,000 ML IV SCH (16:08)
[2018-10-13] MEDS: metroNIDAZOLE-NS PMX 500 MG in SALINE 1 100ML.BAG IVPB SCH ×2 (17:45→22:40)
--- NOTE | 2018-10-13 18:10 | P.HPIM ---
History of Present Illness H&P Date: 10/13/18 This is a 72-year-old lady patient of Dr. Cook. She has underlying history of hypertension hypothyroidism, GERD admitted to the emergency room secondary to right lower quadrant pain for the past 2-3 days. Patient is sharp, 6 out of 10, constant with symptoms that is worrisome for her eyes she thought that this could be related to the appendix, patient has prior history of diverticulitis in the past in this feels quite different. She was seen in urgent care and urinalysis was done and was subsequently sent to the hospital for evaluation to rule out appendicitis. Patient had a normal colonoscopy in September while he of [address] Romeo Peng. Patient denies melena hematochezia, no sick contacts, no fever no chills. Imaging studies in the emergency room showed CAT scan of the abdomen and pelvis shows cholecystectomy with bag area in the pancreatic head 1.4 x 0.7 cm hypodensity, which is not seen previously, surgical changes consistent with prior Joe fundoplication, no mesenteric lymph nodes noted, small bowels are fluid-filled, no dilated small bowel loops or discrete transition point is identified sigmoid diverticulitis is noted with moderate surrounding pericolonic inflammatory fat stranding along the mid sigmoid, bladder is nondistended, ovaries are not well seen there is also post surgical changes right lower quadrant could relate to prior appendectomy or prior bowel resection, recommend tumor markers and a close 2 month follow-up for the pancreas protocol with CT or MRI to exclude an early small mass of the pancreas Review of Systems Constitutional: Reports as per HPI, Reports anorexia, Denies chills, Denies chronic headaches, Denies chronic pain, Denies daytime sleepiness, Denies fatigue, Denies fever, Denies lethargy, Denies malaise, Denies night sweats, Denies poor appetite, Denies sweats, Denies weakness, Denies weight gain, Denies weight loss Ears, nose, mouth and throat: Reports as per HPI, Denies ant. neck pain, Denies bleeding gums, Denies dental pain, Denies dysphagia, Denies epistaxis, Denies headache, Denies hoarseness, Denies mouth pain, Denies nasal congestion, Denies nasal discharge, Denies neck fullness/pressure, Denies neck lump, Denies nose pain, Denies odynophagia, Denies post-nasal drip, Denies sinus pain, Denies sinus pressure, Denies swelling in mouth, Denies swelling in throat, Denies sore throat, Denies vertigo, Denies voice changes Cardiovascular: Reports as per HPI Respiratory: Reports as per HPI Gastrointestinal: Reports as per HPI, Reports abdominal pain, Reports change in bowel habits, Reports indigestion, Reports nausea Genitourinary: Reports as per HPI, Denies abnormal vaginal bleeding, Denies decreased libido, Denies difficulty conceiving, Denies difficulty voiding, Denies dysmenorrhea, Denies dyspareunia, Denies dysuria, Denies flank pain, Stepan es genital sores, Denies hematuria, Denies hot flashes, Denies incomplete emptying, Denies kidney stones, Denies menorrhagia, Denies mixed incontinence, Denies nocturia, Denies pelvic pain, Denies post void dribbling, Denies , Denies prolapse symptoms, Denies stress incontinence, Denies urge incontinence, Denies urgency, Denies urinary frequency, Denies vaginal discharge, Denies vaginal dryness, Denies vaginal itching, Denies vaginal odor Menstruation: Reports as per HPI, Denies amenorrhea, Denies amenorrhea on BC, Denies currently menstrual, Denies cycle < 21 days, Denies cycle > 35 days, Denies cycle variable, Denies menses 1-7 days, Denies menses 8 or > days, Denies menses variable, Denies period heavy, Denies period light, Denies period normal, Denies period spotting, Denies post hysterectomy, Denies postmenopausal, Denies premenarcheal Musculoskeletal: Reports as per HPI, Denies arm numbness/tingling, Denies atrophy, Denies fractures, Denies frequent falls, Denies gait dysfunction, Denies hot joints, Denies leg numbness/tingling, Denies limitation of motion, Denies loss of height, Denies low back pain, Denies morning stiffness, Denies muscle cramps, Denies muscle weakness, Denies myalgias, Denies neck pain, Denies neck stiffness, Denies prior amputations, Denies redness of joints, Denies shooting arm pain, Denies shooting leg pain Integumentary: Reports as per HPI Neurological: Reports as per HPI, Denies aphasia, Denies ataxia, Denies balance difficulties, Denies burning pain, Denies change in mentation, Denies change in smell/taste, Denies change in speech, Denies confusion, Denies convulsions, Denies double vision, Denies gait dysfunction, Denies head injury, Denies headaches, Denies hearing difficulties, Denies lack of coordination, Denies loss of vision, Denies memory loss, Denies migraines, Denies motor disturbance, Denies numbness, Denies paralysis, Denies paresthesias, Denies seizures, Denies sensory deficit, Denies spasticity, Denies syncope, Denies tic, Denies tingling, Denies transient paralysis, Denies tremors, Denies vertigo, Denies weakness, Denies visual changes Psychiatric: Reports as per HPI Endocrine: Reports as per HPI Past Medical History Past Medical History: GERD/Reflux, Hypertension, Osteoarthritis (OA), Thyroid Disorder Additional Past Medical History / Comment(s): Hypothyroid. Osteopenia.dermoid cyst in 1981. History of Any Multi-Drug Resistant Organisms: None Reported Past Surgical History: Cholecystectomy, Orthopedic Surgery Additional Past Surgical History / Comment(s): right ankle, rt oopherectomy. 04/05/2018 Lap joe for hiatal hernia. Colonoscopy 2014. Past Anesthesia/Blood Transfusion Reactions: Family History of Problems w/ Anesthesia, Postoperative Nausea & Vomiting (PONV) Additional Past Anesthesia/Blood Transfusion Reaction / Comment(s): sister has PONV Past Psychological History: Depression Smoking Status: Never smoker Past Alcohol Use History: Rare Past Drug Use History: None Reported - Past Family History Mother Family Medical History: No Reported History Father Family Medical History: Diabetes Mellitus Medications and Allergies Home Medications Medication Instructions Recorded Confirmed Type Levothyroxine Sodium [Synthroid] 25 mcg PO QAM 03/17/16 10/13/18 History [place]-3 Acid Ethyl Esters [Lovaza] 3 gm PO TID 03/17/16 10/13/18 History Candesartan/Hydrochlorothiazid 1 tab PO QAM 06/13/17 10/13/18 History [Atacand Hct 32-12.5 mg Tab] Cetirizine HCl [Zyrtec] 10 mg PO DAILY 05/02/18 10/13/18 History Allopurinol [Zyloprim] 300 mg PO DAILY 10/13/18 10/13/18 History Allergies Allergy/AdvReac Type Severity Reaction Status Date / Time Penicillins Allergy Severe Rash/Hives Verified 10/13/18 15:54 Sulfa (Sulfonamide Allergy Rash/Hives Verified 10/13/18 15:54 Antibiotics) Physical Exam Vitals: Vital Signs Temp Pulse Pulse Resp BP BP Pulse Ox 10/13/18 17:27 98.7 F 64 18 116/87 98 10/13/18 16:29 97.7 F 66 14 149/85 97 10/13/18 15:02 65 16 122/82 98 10/13/18 12:34 98.2 F 68 18 116/76 98 Intake and Output 10/13/18 10/13/18 10/13/18 06:59 14:59 22:59 Other: Weight 68.946 kg - Constitutional General appearance: cooperative, no acute distress - EENT Eyes: anicteric sclerae, EOMI, PERRLA, dentition normal, normal appearance ENT: NA/AT, normal oropharynx - Neck Neck: normal ROM - Respiratory Respiratory: bilateral: CTA, negative: diminished, dullness, rales, rhonchi - Cardiovascular Rhythm: regular Heart sounds: normal: S1, S2 Abnormal Heart Sounds: no systolic murmur, no diastolic murmur, no rub, no S3 Gallop, no S4 Gallop, no click, no other - Gastrointestinal General gastrointestinal: normal bowel sounds, soft, tenderness - Integumentary Integumentary: normal, normal turgor - Neurologic Neurologic: CNII-XII intact - Musculoskeletal Musculoskeletal: gait normal, generalized weakness, strength equal bilaterally - Psychiatric Psychiatric: A&O x's 3, appropriate affect, intact judgment & insight Results CBC & Chem 7: 10/13/18 13:15 10/13/18 13:15 Labs: Abnormal Lab Results - Last 24 Hours (Table) 10/13/18 10/13/18 Range/Units 13:15 13:35 RBC 2.81 L (3.80-5.40) m/uL Hgb 8.8 L (11.4-16.0) gm/dL Hct 26.7 L (34.0-46.0) % RDW 15.7 H (11.5-15.5) % Urine Ketones 1+ H (Negative) Laboratory Results WBC 6.2 k/uL (3.8-10.6) 10/13/18 13:15 RBC 2.81 m/uL (3.80-5.40) L 10/13/18 13:15 Hgb 8.8 gm/dL (11.4-16.0) L 10/13/18 13:15 Hct 26.7 % (34.0-46.0) L 10/13/18 13:15 MCV 95.1 fL (80.0-100.0) 10/13/18 13:15 MCH 31.4 pg (25.0-35.0) 10/13/18 13:15 MCHC 33.0 g/dL (31.0-37.0) 10/13/18 13:15 RDW 15.7 % (11.5-15.5) H 10/13/18 13:15 Plt Count 387 k/uL (150-450) 10/13/18 13:15 Neutrophils % 60 % 10/13/18 13:15 Lymphocytes % 22 % 10/13/18 13:15 Monocytes % 7 % 10/13/18 13:15 Eosinophils % 7 % 10/13/18 13:15 Basophils % 1 % 10/13/18 13:15 Neutrophils # 3.7 k/uL (1.3-7.7) 10/13/18 13:15 Lymphocytes # 1.3 k/uL (1.0-4.8) 10/13/18 13:15 Monocytes # 0.5 k/uL (0-1.0) 10/13/18 13:15 Eosinophils # 0.4 k/uL (0-0.7) 10/13/18 13:15 Basophils # 0.1 k/uL (0-0.2) 10/13/18 13:15 PT 9.6 sec (9.0-12.0) 10/13/18 13:15 INR 0.9 (<1.2) 10/13/18 13:15 APTT 23.8 sec (22.0-30.0) 10/13/18 13:15 Sodium 138 mmol/L (137-145) 10/13/18 13:15 Potassium 4.2 mmol/L (3.5-5.1) 10/13/18 13:15 Chloride 98 mmol/L (98-107) 10/13/18 13:15 Carbon Dioxide 29 mmol/L (22-30) 10/13/18 13:15 Anion Gap 11 mmol/L 10/13/18 13:15 BUN 11 mg/dL (7-17) 10/13/18 13:15 Creatinine 0.74 mg/dL (0.52-1.04) 10/13/18 13:15 Est GFR (CKD-EPI)AfAm >90 (>60 ml/min/1.73 sqM) 10/13/18 13:15 Est GFR (CKD-EPI)NonAf 83 (>60 ml/min/1.73 sqM) 10/13/18 13:15 Glucose 90 mg/dL (74-99) 10/13/18 13:15 Plasma Lactic Acid Dre 1.2 mmol/L (0.7-2.0) 10/13/18 13:15 Calcium 9.8 mg/dL (8.4-10.2) 10/13/18 13:15 Total Bilirubin 0.6 mg/dL (0.2-1.3) 10/13/18 13:15 AST 30 U/L (14-36) 10/13/18 13:15 ALT 32 U/L (9-52) 10/13/18 13:15 Alkaline Phosphatase 79 U/L (38-126) 10/13/18 13:15 Total Protein 7.8 g/dL (6.3-8.2) 10/13/18 13:15 Albumin 4.6 g/dL (3.5-5.0) 10/13/18 13:15 Amylase 57 U/L (30-110) 10/13/18 13:15 Lipase 69 U/L (23-300) 10/13/18 13:15 Urine Color Yellow 10/13/18 13:35 Urine Appearance Clear (Clear) 10/13/18 13:35 Urine pH 5.5 (5.0-8.0) 10/13/18 13:35 Ur Specific [place] 1.020 (1.001-1.035) 10/13/18 13:35 Urine Protein Negative (Negative) 10/13/18 13:35 Urine Glucose (UA) Negative (Negative) 10/13/18 13:35 Urine Ketones 1+ (Negative) H 10/13/18 13:35 Urine Blood Negative (Negative) 10/13/18 13:35 Urine Nitrite Negative (Negative) 10/13/18 13:35 Urine Bilirubin Negative (Negative) 10/13/18 13:35 Urine Urobilinogen <2.0 mg/dL (<2.0) 10/13/18 13:35 Ur Leukocyte Esterase Negative (Negative) 10/13/18 13:35 Stool Occult Blood Negative (Negative) 10/13/18 14:37 Blood Type O Positive 10/13/18 13:15 Blood Type Recheck CABO Indicated 10/13/18 13:15 Antibody Screen NEGATIVE 10/13/18 13:15 Spec Expiration Date 10/16/2018 - 2315 10/13/18 13:15 Assessment and Plan Plan: 1. Acute diverticulitis, with evidence of perforation or abscess, patient is started on IV ceftriaxone and Flagyl, patient has recent colonoscopy done by Dr. Redmond in March 2018, patient will be on clear liquid diet, antiemetics, for symptom control, bowel rest. Consult were made with Dr. Myers 4Mild small bowel ileus, patient would be medically Mullally mild age, with bowel rest, hold off NG tube at this time, monitor closely 3 Hypothyroidism levothyroxine 25 g daily [address], with hypodensity noted in the CAT scan, patient would have CA 19 does 9 as well as lipase, and would need a 2 month computed tomography scan attention to the pancreatic area 5 Hypertension [place]and HCTZ 32 mg daily 6 Prior history off right dermoid cyst with right oophorectomy possible appendectomy during the procedure GI prophylaxis DVT prophylaxis
[2018-10-14] MEDS: SODIUM CHLORIDE 0.9% 1,000 ML IV SCH ×2 (05:56→20:19)
[2018-10-14] MEDS: LEVOTHYROXINE 25 MCG TAB PO SCH (05:56)
[2018-10-14] MEDS: LOSARTAN 50 MG TAB PO SCH (07:21)
[2018-10-14] MEDS: HYDROCHLOROTHIAZIDE 12.5 MG CAP PO SCH (07:21)
[2018-10-14] MEDS: metroNIDAZOLE-NS PMX 500 MG in SALINE 1 100ML.BAG IVPB SCH ×3 (09:20→22:24)
[2018-10-14 09:24] LABS: Basophils % (A) 1 %; Eosinophils # (A) 0.3 k/uL (0-0.7); Eosinophils % (A) 7 %; HCT 34.8 % (34.0-46.0); HGB 11.1 gm/dL (11.4-16.0); Lymphocytes # (A) 0.9 k/uL (1.0-4.8); Lymphocytes % (A) 21 %; MCH 30.7 pg (25.0-35.0); Mean Platelet Volume 6.6; Monocytes # (A) 0.3 k/uL (0-1.0); Monocytes % (A) 8 %; Neutrophils # (A) 2.6 k/uL (1.3-7.7); Neutrophils % (A) 62 %; Platelet Count 244 k/uL (150-450); RBC 3.62 m/uL (3.80-5.40); RDW 14.7 % (11.5-15.5); WBC 4.3 k/uL (3.8-10.6)
[2018-10-14 09:35] LABS: ALT 24 U/L (9-52); AST 21 U/L (14-36); African American GFR (CKD) >90 (>60 ml/min/1.73 sqM); Albumin 3.6 g/dL (3.5-5.0); Alkaline Phosphatase 58 U/L (38-126); Anion Gap 8 mmol/L; Blood Urea Nitrogen 10 mg/dL (7-17); Calcium 8.8 mg/dL (8.4-10.2); Carbon Dioxide 27 mmol/L (22-30); Chloride 106 mmol/L (98-107); Glucose 84 mg/dL (74-99); Lipase 44 U/L (23-300); Potassium 3.8 mmol/L (3.5-5.1); Sodium 141 mmol/L (137-145); Total Bilirubin 0.3 mg/dL (0.2-1.3); Total Protein 6.4 g/dL (6.3-8.2)
--- NOTE | 2018-10-14 10:14 | P.PN ---
Subjective Progress Note Date: 10/14/18 This is a 72-year-old lady patient of Dr. Cook. She has underlying history of hypertension hypothyroidism, GERD admitted to the emergency room secondary to right lower quadrant pain for the past 2-3 days. Patient is sharp, 6 out of 10, constant with symptoms that is worrisome for her eyes she thought that this could be related to the appendix, patient has prior history of diverticulitis in the past in this feels quite different. She was seen in urgent care and urinalysis was done and was subsequently sent to the hospital for evaluation to rule out appendicitis. Patient had a normal colonoscopy in September while he of [address] Romeo Peng. Patient denies melena hematochezia, no sick contacts, no fever no chills. Imaging studies in the emergency room showed CAT scan of the abdomen and pelvis shows cholecystectomy with bag area in the pancreatic head 1.4 x 0.7 cm hypodensity, which is not seen previously, surgical changes consistent with prior Joe fundoplication, no mesenteric lymph nodes noted, small bowels are fluid-filled, no dilated small bowel loops or discrete transition point is identified sigmoid diverticulitis is noted with moderate surrounding pericolonic inflammatory fat stranding along the mid sigmoid, bladder is nondistended, ovaries are not well seen there is also post surgical changes right lower quadrant could relate to prior appendectomy or prior bowel resection, recommend tumor markers and a close 2 month follow-up for the pancreas protocol with CT or MRI to exclude an early small mass of the pancreas 10/14: Patient has been afebrile, heart rate 68, blood pressure 92/59, pulse ox 94% on room air. Stool for occult blood is negative. Consult with GI in place. Patient is continued on Rocephin and Flagyl. Patient remains nothing by mouth. She denies any nausea. Her last bowel movement was 8 PM last evening and she's had a lot of gas. She denies any blood in her stools. She denies any fever or chills. Patient has mild tenderness to the bilateral lower quadrants. Abdominal ultrasound will be ordered for concern shadow at the pancreatic head. CA 199 is pending. Objective - Vital Signs Vital signs: Vital Signs Temp 98.5 F 10/14/18 07:17 Pulse 68 10/14/18 07:17 Resp 18 10/14/18 07:17 BP 92/59 10/14/18 07:17 Pulse Ox 94 L 10/14/18 07:17 Intake & Output 10/13/18 10/14/18 10/14/18 18:59 06:59 18:59 Intake Total 1200 Balance 1200 Weight 68.946 kg Intake: Intake, IV Titration 1200 Amount Sodium Chloride 0.9% 1, 1200 000 ml @ 100 mls/hr IV . Q10H [place] Rx#:[id number] Other: Voiding Method Toilet # Voids 2 # Bowel Movements 1 - Exam Review of Systems Constitutional: Reports as per HPI, Reports anorexia, Denies chills, Denies chronic headaches, Denies chronic pain, Denies daytime sleepiness, Denies fatigue, Denies fever, Denies lethargy, Denies malaise, Denies night sweats, Denies poor appetite, Denies sweats, Denies weakness, Denies weight gain, Denies weight loss Ears, nose, mouth and throat: Reports as per HPI, Denies ant. neck pain, Denies bleeding gums, Denies dental pain, Denies dysphagia, Denies epistaxis, Denies headache, Denies hoarseness, Denies mouth pain, Denies nasal congestion, Denies nasal discharge, Denies neck fullness/pressure, Denies neck lump, Denies nose pain, Denies odynophagia, Denies post-nasal drip, Denies sinus pain, Denies sinus pressure, Denies swelling in mouth, Denies swelling in throat, Denies sore throat, Denies vertigo, Denies voice changes Cardiovascular: Reports as per HPI Respiratory: Reports as per HPI Gastrointestinal: Reports as per HPI, Reports abdominal pain, Reports change in bowel habits, Reports indigestion, denies nausea Genitourinary: Reports as per HPI, Denies abnormal vaginal bleeding, Denies decreased libido, Denies difficulty conceiving, Denies difficulty voiding, Denies dysmenorrhea, Denies dyspareunia, Denies dysuria, Denies flank pain, Denies genital sores, Denies hematuria, Denies hot flashes, Denies incomplete emptying, Denies kidney stones, Denies menorrhagia, Denies mixed incontinence, Denies nocturia, Denies pelvic pain, Denies post void dribbling, Denies , Denies prolapse symptoms, Denies stress incontinence, Denies urge incontinence, Denies urgency, Denies urinary frequency, Denies vaginal discharge, Denies vaginal dryness, Denies vaginal itching, Denies vaginal odor Menstruation: Reports as per HPI, Denies amenorrhea, Denies amenorrhea on BC, Denies currently menstrual, Denies cycle < 21 days, Denies cycle > 35 days, Denies cycle variable, Denies menses 1-7 days, Denies menses 8 or > days, Denies menses variable, Denies period heavy, Denies period light, Denies period normal, Denies period spotting, Denies post hysterectomy, Denies postmenopausal, Denies premenarcheal Musculoskeletal: Reports as per HPI, Denies arm numbness/tingling, Denies atrophy, Denies fractures, Denies frequent falls, Denies gait dysfunction, Denies hot joints, Denies leg numbness/tingling, Denies limitation of motion, Denies loss of height, Denies low back pain, Denies morning stiffness, Denies muscle cramps, Denies muscle weakness, Denies myalgias, Denies neck pain, Denies neck stiffness, Denies prior amputations, Denies redness of joints, Denies shooting arm pain, Denies shooting leg pain Integumentary: Reports as per HPI Neurological: Reports as per HPI, Denies aphasia, Denies ataxia, Denies balance difficulties, Denies burning pain, Denies change in mentation, Denies change in smell/taste, Denies change in speech, Denies confusion, Denies convulsions, Denies double vision, Denies gait dysfunction, Denies head injury, Denies headaches, Denies hearing difficulties, Denies lack of coordination, Denies loss of vision, Denies memory loss, Denies migraines, Denies motor disturbance, Denies numbness, Denies paralysis, Denies paresthesias, Denies seizures, Denies sensory deficit, Denies spasticity, Denies syncope, Denies tic, Denies tingling, Denies transient paralysis, Denies tremors, Denies vertigo, Denies weakness, Denies visual changes Psychiatric: Reports as per HPI Endocrine: Reports as per HPI His exam: - Constitutional General appearance: cooperative, no acute distress - EENT Eyes: anicteric sclerae, EOMI, PERRLA, dentition normal, normal appearance ENT: NA/AT, normal oropharynx - Neck Neck: normal ROM - Respiratory Respiratory: bilateral: CTA, negative: diminished, dullness, rales, rhonchi - Cardiovascular Rhythm: regular Heart sounds: normal: S1, S2 Abnormal Heart Sounds: no systolic murmur, no diastolic murmur, no rub, no S3 Gallop, no S4 Gallop, no click, no other - Gastrointestinal General gastrointestinal: normal bowel sounds, soft, mild tenderness RLQ, LLQ - Integumentary Integumentary: normal, normal turgor - Neurologic Neurologic: CNII-XII intact - Musculoskeletal Musculoskeletal: gait normal, generalized weakness, strength equal bilaterally - Psychiatric Psychiatric: A&O x's 3, appropriate affect, intact judgment & insight - Labs CBC & Chem 7: 10/14/18 08:40 10/14/18 08:40 Labs: Abnormal Lab Results - Last 24 Hours (Table) 10/13/18 10/13/18 Range/Units 13:15 13:35 RBC 2.81 L (3.80-5.40) m/uL Hgb 8.8 L (11.4-16.0) gm/dL Hct 26.7 L (34.0-46.0) % RDW 15.7 H (11.5-15.5) % Urine Ketones 1+ H (Negative) Assessment and Plan Plan: 1. Acute diverticulitis, without evidence of perforation or abscess, patient is started on IV ceftriaxone and Flagyl, patient has recent colonoscopy done by Dr. Redmond in March 2018, patient will be NPO, antiemetics, for symptom control, bowel rest. Consult were made with Dr. Myers. Diovan be advanced to clear liquids if cleared by GI and after abdominal ultrasound. 4Mild small bowel ileus, improved. Continue bowel rest, hold off NG tube at this time, monitor closely 3 Hypothyroidism levothyroxine 25 g daily [address], with hypodensity noted in the CAT scan, patient would have CA 19 does 9 as well as lipase, and would need a 2 month computed tomography scan attention to the pancreatic area. Abdominal ultrasound. 5 Hypertension [place] HCTZ 32 mg daily 6 Prior history off right dermoid cyst with right oophorectomy possible appendectomy during the procedure GI prophylaxis DVT prophylaxis Discharge plan: Impression and plan of care have been directed as dictated by the signing phys ician. Talia Mejia nurse practitioner acting as scribe for signing physician.
--- NOTE | 2018-10-14 11:49 | US ---
EXAMINATION TYPE: US abdomen limited DATE OF EXAM: 10/14/2018 COMPARISON: CT dated 10/13/2018 CLINICAL HISTORY: pancreatic head shadow on CT. abn CT EXAM MEASUREMENTS: Liver Length: 14.9 cm Gallbladder Wall: Surgically absent CBD: 0.7 cm Right Kidney: 9.3 x 3.4 x 4.2 cm Pancreas: Within normal limits as visualized however there is poor delineation of the entirety of the pancreatic head and tail due to overlying bowel gas, typically seen on ultrasound. No discrete ducta l dilatation. Liver: difficult to image, intercostal imaging, bowel gas limits exam Gallbladder: Surgically absent Evidence for sonographic Del Castillo's sign: no CBD: 0.7cm Right Kidney: 9.3 x 3.4 x 4.2cm IMPRESSION: 1. No discrete ductal dilatation or focal pancreatic mass is seen however there is incomplete visuali zation of the entirety of the pancreatic head and tail due to overlying bowel gas. Follow-up with thr ee-phase MR abdomen could be performed if there is concern for pancreatic head mass. 2. Surgical absence of the gallbladder.
--- NOTE | 2018-10-14 12:17 | P.CONS ---
History of Present Illness - Reason for Consult Consult date: 10/14/18 Abdominal pain Requesting physician: Sintia Nance - Chief Complaint Abdominal pain - History of Present Illness 72-year-old female admitted with acute lower abdominal pain with a history of colonic diverticulosis. Colonoscopy April [address] Redmond reported colonic diverticulosis external hemorrhoids. CT abdomen acute mid sigmoid diverticulitis without abscess or free air. A vague 1.40.7 cm hypodense area in the pancreatic head region could be partial volume averaging artifact as this was not clearly seen previously. Recommend correlation with tumor markers and close two-month follow-up pancreas protocol CT/MRI to exclude an early small mass. Hemoglobin 11.1. White count 4.3. LFTs amylase lipase normal. FOBT negative. CA-19-9 pending. Review of Systems Constitutional: Denies fever, chills, sweats, weight gain, or loss. HEENT: Negative for migraines, blurred vision or loss, earaches, drainage, tinnitus, oral mucosal lesions, dysphagia, or odynophagia. CARDIAC: Negative for chest pain, arrhythmias, or palpitation. RESPIRATORY: Negative for shortness of breath, hemoptysis, cough, or sputum production. GI: See HPI for pertinent findings. : Negative for hematuria, urgency, frequency, polyuria, or dysuria. GYNc: Denies possibility of . Negative vaginal discharge. MUSCULOSKELETAL: Negative for muscle aches, swelling, arthritis, and arthralgias. NEUROLOGIC: Negative for stroke or TIA. ENDOCRINE: Negative for thyroid problems. SKIN: Negative for rash or itching. PSYCHIATRIC: Negative history for depression and anxiety Past Medical History Past Medical History: GERD/Reflux, Hypertension, Osteoarthritis (OA), Thyroid Disorder Additional Past Medical History / Comment(s): Hypothyroid. Osteopenia.dermoid cyst in 1981. History of Any Multi-Drug Resistant Organisms: None Reported Past Surgical History: Cholecystectomy, Orthopedic Surgery Additional Past Surgical History / Comment(s): right ankle, rt oopherectomy. 04/05/2018 Lap meeta for hiatal hernia. Colonoscopy 2014. Past Anesthesia/Blood Transfusion Reactions: Family History of Problems w/ Anesthesia, Postoperative Nausea & Vomiting (PONV) Additional Past Anesthesia/Blood Transfusion Reaction / Comm: sister has PONV Past Psychological History: Depression Smoking Status: Never smoker Past Alcohol Use History: Rare Past Drug Use History: None Reported - Past Family History Mother Family Medical History: No Reported History Father Family Medical History: Diabetes Mellitus Medications and Allergies Home Medications Medication Instructions Recorded Confirmed Type Levothyroxine Sodium [Synthroid] 25 mcg PO QAM 03/17/16 10/13/18 History [place]-3 Acid Ethyl Esters [Lovaza] 3 gm PO TID 03/17/16 10/13/18 History Candesartan/Hydrochlorothiazid 1 tab PO QAM 06/13/17 10/13/18 History [Atacand Hct 32-12.5 mg Tab] Cetirizine HCl [Zyrtec] 10 mg PO DAILY 05/02/18 10/13/18 History Allopurinol [Zyloprim] 300 mg PO DAILY 10/13/18 10/13/18 History Allergies Allergy/AdvReac Type Severity Reaction Status Date / Time Penicillins Allergy Severe Rash/Hives Verified 10/13/18 15:54 Sulfa (Sulfonamide Allergy Rash/Hives Verified 10/13/18 15:54 Antibiotics) Physical Exam Vitals: Vital Signs Temp Pulse Pulse Pulse Resp BP BP 10/14/18 07:17 98.5 F 68 18 92/59 10/14/18 01:55 97.7 F 68 18 98/60 10/13/18 19:35 98.3 F 75 18 99/58 10/13/18 18:13 66 18 10/13/18 17:27 98.7 F 64 18 116/87 10/13/18 16:29 97.7 F 66 14 149/85 10/13/18 15:02 65 16 122/82 10/13/18 12:34 98.2 F 68 18 116/76 Pulse Ox 10/14/18 07:17 94 L 10/14/18 01:55 96 10/13/18 19:35 94 L 10/13/18 18:13 10/13/18 17:27 98 10/13/18 16:29 97 10/13/18 15:02 98 10/13/18 12:34 98 Intake and Output 10/13/18 10/14/18 10/14/18 22:59 06:59 14:59 Intake Total 1200 Balance 1200 Intake: Intake, IV Titration 1200 Amount Sodium Chloride 0.9% 1, 1200 000 ml @ 100 mls/hr IV . Q10H [facility] Rx#:[id number] Other: Voiding Method Toilet # Voids 2 # Bowel Movements 1 General appearance: The patient is alert, oriented, in no acute distress. HET: Head is normocephalic and atraumatic. Pupils are equal and reactive. Oropharynx is clear without lesions. Neck: Supple without lymphadenopathy. Trachea midline. Heart: S1 S2. Regular rate and rhythm. Lungs: No crackles or wheezes are heard. Abdomen: Soft, nontender, nondistended with bowel sounds. No peritoneal signs. No palpable organomegaly or masses. Extremities: Normal skin color and turgor. No cyanosis, rash, ulceration, clubbing, or edema. Radial and pedal pulses are 2/4 bilaterally. Neurological: No focal deficits. Strength and sensation are grossly intact. Results CBC & Chem 7: 10/14/18 08:40 10/14/18 08:40 Labs: Abnormal Lab Results - Last 24 Hours (Table) 10/13/18 10/13/18 10/14/18 Range/Units 13:15 13:35 08:40 RBC 2.81 L 3.62 L (3.80-5.40) m/uL Hgb 8.8 L 11.1 L (11.4-16.0) gm/dL Hct 26.7 L (34.0-46.0) % RDW 15.7 H (11.5-15.5) % Lymphocytes # 0.9 L (1.0-4.8) k/uL Urine Ketones 1+ H (Negative) CT scan - abdomen: report reviewed (Dr. Cano) Assessment and Plan (1) Diverticulitis Narrative/Plan: Acute mid sigmoid diverticulitis uncomplicated Current Visit: Yes Status: Acute Code(s): K57.92 - DVTRCLI OF INTEST, PART UNSP, W/O PERF OR ABSCESS W/O BLEED SNOMED Code(s): 518672925 (2) Abnormal CT of the abdomen Narrative/Plan: Abnormal pancreatic CT. Underlying early pancreatic mass cannot be excluded Current Visit: Yes Status: Acute Code(s): R93.5 - ABN FINDINGS ON DX IMAGING OF ABD REGIONS, INC RETROPERITON SNOMED Code(s): 00283890262567826 Plan: 1. Liquid diet advanced as tolerated. Supportive measures. Antibiotics. MRCP. Thank you for this kind referral and the opportunity to participate in the care of your patient. This consultation was discussed with Dr. Cano. The impression and plan of care have been directed as dictated.
[2018-10-14] MEDS ORDERED: LORazepam 2 MG/ML INJ IV STA (13:03)
[2018-10-14 14:54] VITALS: RESP 16
[2018-10-14] MEDS: ACETAMINOPHEN TAB 325 MG TAB PO PRN ×2 (15:23→21:26)
--- NOTE | 2018-10-14 16:49 | P.GSCN ---
History of Present Illness Consult date: 10/14/18 Reason for Consult: Diverticulitis History of present illness: This is a 72-year-old female well-known to myself. Patient was admitted through the emergency room with complaints of abdominal pain. Her CAT scan showed evidence of acute sigmoid diverticulitis. Past Medical History Past Medical History: GERD/Reflux, Hypertension, Osteoarthritis (OA), Thyroid Disorder Additional Past Medical History / Comment(s): Hypothyroid. Osteopenia.dermoid cyst in 1981. History of Any Multi-Drug Resistant Organisms: None Reported Past Surgical History: Cholecystectomy, Orthopedic Surgery Additional Past Surgical History / Comment(s): right ankle, rt oopherectomy. 04/05/2018 Lap meeta for hiatal hernia. Colonoscopy 2014. Past Anesthesia/Blood Transfusion Reactions: Family History of Problems w/ Anesthesia, Postoperative Nausea & Vomiting (PONV) Additional Past Anesthesia/Blood Transfusion Reaction / Comm: sister has PONV Past Psychological History: Depression Smoking Status: Never smoker Past Alcohol Use History: Rare Past Drug Use History: None Reported - Past Family History Mother Family Medical History: No Reported History Father Family Medical History: Diabetes Mellitus Medications and Allergies Home Medications Medication Instructions Recorded Confirmed Type Levothyroxine Sodium [Synthroid] 25 mcg PO QAM 03/17/16 10/13/18 History [place]-3 Acid Ethyl Esters [Lovaza] 3 gm PO TID 03/17/16 10/13/18 History Candesartan/Hydrochlorothiazid 1 tab PO QAM 06/13/17 10/13/18 History [Atacand Hct 32-12.5 mg Tab] Cetirizine HCl [Zyrtec] 10 mg PO DAILY 05/02/18 10/13/18 History Allopurinol [Zyloprim] 300 mg PO DAILY 10/13/18 10/13/18 History Allergies Allergy/AdvReac Type Severity Reaction Status Date / Time Penicillins Allergy Severe Rash/Hives Verified 10/13/18 15:54 Sulfa (Sulfonamide Allergy Rash/Hives Verified 10/13/18 15:54 Antibiotics) Surgical - Exam Vital Signs Temp Pulse Resp BP Pulse Ox 98.2 F 68 18 116/76 98 10/13/18 12:34 10/13/18 12:34 10/13/18 12:34 10/13/18 12:34 10/13/18 12:34 - General well developed, well nourished, no distress - Eyes PERRL - ENT normal pinna - Neck no masses - Respiratory normal expansion - Cardiovascular Rhythm: regular - Abdomen Abdomen: soft, non tender Results - Labs 10/14/18 08:40 10/14/18 08:40 Abnormal Lab Results - Last 24 Hours (Table) 10/14/18 Range/Units 08:40 RBC 3.62 L (3.80-5.40) m/uL Hgb 11.1 L (11.4-16.0) gm/dL Lymphocytes # 0.9 L (1.0-4.8) k/uL Microbiology - Last 24 Hours (Table) 10/13/18 13:15 Blood Culture - Preliminary Blood No Growth after 24 hours Diabetes panel 10/14/18 Range/Units 08:40 Sodium 141 (137-145) mmol/L Potassium 3.8 (3.5-5.1) mmol/L Chloride 106 (98-107) mmol/L Carbon Dioxide 27 (22-30) mmol/L BUN 10 (7-17) mg/dL Creatinine 0.53 (0.52-1.04) mg/dL Glucose 84 (74-99) mg/dL Calcium 8.8 (8.4-10.2) mg/dL AST 21 (14-36) U/L ALT 24 (9-52) U/L Alkaline Phosphatase 58 (38-126) U/L Total Protein 6.4 (6.3-8.2) g/dL Albumin 3.6 (3.5-5.0) g/dL Calcium panel 10/14/18 Range/Units 08:40 Calcium 8.8 (8.4-10.2) mg/dL Albumin 3.6 (3.5-5.0) g/dL Pituitary panel 10/14/18 Range/Units 08:40 Sodium 141 (137-145) mmol/L Potassium 3.8 (3.5-5.1) mmol/L Chloride 106 (98-107) mmol/L Carbon Dioxide 27 (22-30) mmol/L BUN 10 (7-17) mg/dL Creatinine 0.53 (0.52-1.04) mg/dL Glucose 84 (74-99) mg/dL Calcium 8.8 (8.4-10.2) mg/dL Adrenal panel 10/14/18 Range/Units 08:40 Sodium 141 (137-145) mmol/L Potassium 3.8 (3.5-5.1) mmol/L Chloride 106 (98-107) mmol/L Carbon Dioxide 27 (22-30) mmol/L BUN 10 (7-17) mg/dL Creatinine 0.53 (0.52-1.04) mg/dL Glucose 84 (74-99) mg/dL Calcium 8.8 (8.4-10.2) mg/dL Total Bilirubin 0.3 (0.2-1.3) mg/dL AST 21 (14-36) U/L ALT 24 (9-52) U/L Alkaline Phosphatase 58 (38-126) U/L Total Protein 6.4 (6.3-8.2) g/dL Albumin 3.6 (3.5-5.0) g/dL Assessment and Plan Assessment: Resolving sigmoid diverticulitis. Patient's abdomen is soft. There is no significant tenderness. She'll start on a full liquid diet. The patient is undergoing MRI of the pancreas to evaluate for possible pancreatic lesion. After her breast perform she'll start on a full liquid diet.
[2018-10-14] MEDS: LORATADINE 10 MG TAB PO SCH (18:57)
--- NOTE | 2018-10-14 19:19 | MR ---
EXAMINATION TYPE: MR pancreas / mrcp wo/w con DATE OF EXAM: 10/14/2018 COMPARISON: HISTORY: abnormal CT, 7ml gadavist given CONTRAST: Standard multiplanar, multisequence MRI departmental protocol utilizing 7 mL intravenous Gadavist joreg olinium contrast. FINDINGS: Liver shows no focal defect. The bile ducts are not dilated. Cholecystectomy is noted. There is no ev idence of a solid pancreatic mass. There is a bilobed 15 x 7 mm cystic area in the posterior pancreat ic head consistent with a dilated accessory pancreatic duct or small pseudocysts. This is the area of hypodensity seen on the CT scan of 10/13/2018. The main pancreatic duct is not dilated. The spleen shows no focal defect. There is no pleural effusion. There is no evidence of retroperitone al adenopathy. There is no sign of ascites. Kidneys have normal size and contour. There is no hydronephrosis. I see no pathologic enhancement. IMPRESSION: Cystic elongated area in the posterior pancreas that could be dilated accessory pancreatic duct or sm all pseudocysts. No suspicious pancreatic mass. No dilated ducts.
[2018-10-15] MEDS: LEVOTHYROXINE 25 MCG TAB PO SCH (06:18)
[2018-10-15] MEDS: HYDROCHLOROTHIAZIDE 12.5 MG CAP PO SCH (08:40)
[2018-10-15] MEDS: LOSARTAN 50 MG TAB PO SCH (08:40)
[2018-10-15 09:27] LABS: Anisocytosis Slight; Basophils % (A) 1 %; Eosinophils # (A) 0.4 k/uL (0-0.7); Eosinophils % (A) 10 %; HCT 36.1 % (34.0-46.0); HGB 11.5 gm/dL (11.4-16.0); Lymphocytes % (A) 24 %; MCHC 31.9 g/dL (31.0-37.0); MCV 97.2 fL (80.0-100.0); Mean Platelet Volume 7.1; Monocytes # (A) 0.2 k/uL (0-1.0); Monocytes % (A) 4 %; Neutrophils # (A) 2.5 k/uL (1.3-7.7); Neutrophils % (A) 59 %; Platelet Count 259 k/uL (150-450); RBC 3.71 m/uL (3.80-5.40); RDW 16.1 % (11.5-15.5); WBC 4.3 k/uL (3.8-10.6)
[2018-10-15 09:40] LABS: ALT 20 U/L (9-52); AST 20 U/L (14-36); African American GFR (CKD) >90 (>60 ml/min/1.73 sqM); Albumin 3.5 g/dL (3.5-5.0); Alkaline Phosphatase 55 U/L (38-126); Anion Gap 9 mmol/L; Blood Urea Nitrogen 6 mg/dL (7-17); Calcium 8.6 mg/dL (8.4-10.2); Carbon Dioxide 25 mmol/L (22-30); Chloride 106 mmol/L (98-107); Glucose 131 mg/dL (74-99); Potassium 3.4 mmol/L (3.5-5.1); Sodium 140 mmol/L (137-145); Total Bilirubin 0.2 mg/dL (0.2-1.3); Total Protein 6.2 g/dL (6.3-8.2)
[2018-10-15] MEDS: metroNIDAZOLE-NS PMX 500 MG in SALINE 1 100ML.BAG IVPB SCH (10:27)
--- NOTE | 2018-10-15 10:42 | P.PN ---
Subjective Progress Note Date: 10/15/18 Principal diagnosis: Diverticulitis abnormal CT abdomen Pancreas MRI cystic elongated area in the posterior pancreas it could be dilated accessory pancreatic duct or small pseudocyst. No suspicious pancreatic mass. No dilated ducts. CA-19-9 15.6. Objective - Vital Signs Vital signs: Vital Signs Temp 97.9 F 10/14/18 23:55 Pulse 65 10/14/18 23:55 Resp 16 10/14/18 23:55 BP 95/62 10/14/18 23:55 Pulse Ox 96 10/14/18 23:55 Intake & Output 10/14/18 10/15/18 10/15/18 18:59 06:59 18:59 Other: Voiding Method Toilet # Voids 2 1 - Exam General appearance: The patient is alert, oriented, in no acute distress. HET: Head is normocephalic and atraumatic. Pupils are equal and reactive. Oropharynx is clear without lesions. Neck: Supple without lymphadenopathy. Trachea midline. Heart: S1 S2. Regular rate and rhythm. Lungs: No crackles or wheezes are heard. Abdomen: Soft, nontender, nondistended with bowel sounds. No peritoneal signs. No palpable organomegaly or masses. Extremities: Normal skin color and turgor. No cyanosis, rash, ulceration, clubbing, or edema. Radial and pedal pulses are 2/4 bilaterally. Neurological: No focal deficits. Strength and sensation are grossly intact. - Labs CBC & Chem 7: 10/15/18 09:01 10/15/18 09:01 Labs: Abnormal Lab Results - Last 24 Hours (Table) 10/14/18 Range/Units 08:40 RBC 3.62 L (3.80-5.40) m/uL Hgb 11.1 L (11.4-16.0) gm/dL Lymphocytes # 0.9 L (1.0-4.8) k/uL Microbiology - Last 24 Hours (Table) 10/13/18 13:15 Blood Culture - Preliminary Blood No Growth after 24 hours Assessment and Plan (1) Diverticulitis Narrative/Plan: Acute mid sigmoid diverticulitis uncomplicated Current Visit: Yes Status: Acute Code(s): K57.92 - DVTRCLI OF INTEST, PART UNSP, W/O PERF OR ABSCESS W/O BLEED SNOMED Code(s): 550472366 (2) Abnormal CT of the abdomen Narrative/Plan: MRI pancreas cystic lesion possible elongated pancreatic duct versus pseudocysts. No pancreatic mass seen. Current Visit: Yes Status: Acute Code(s): R93.5 - ABN FINDINGS ON DX IMAGING OF ABD REGIONS, INC RETROPERITON SNOMED Code(s): 17169238190818261 Plan: 1. Discharge per medicine. Follow up in GI office in 2-3 weeks for reevaluation discussion of outpatient EUS. Assessment and plan a care discussed with Dr. Foster
[2018-10-15 10:49] VITALS: BP 108/69; PULSE 75; TEMP 98.2
[2018-10-15] MEDS: LORATADINE 10 MG TAB PO SCH (12:03)
--- NOTE | 2018-10-15 13:54 | P.PN ---
Subjective Progress Note Date: 10/15/18 CHIEF COMPLAINT: Abdominal pain HISTORY OF PRESENT ILLNESS: Patient seen and examined at the bedside. Patient denies abdominal pain. She is tolerating diet. Denies nausea vomiting. Reports bowel movement this morning. WBC 4.3. Hemoglobin 11.5. PHYSICAL EXAM: VITAL SIGNS: Reviewed. GENERAL: Well-developed in no acute distress. HEENT: No sclera icterus. Extraocular movements grossly intact. Moist buccal mucosa. Head is atraumatic, normocephalic. ABDOMEN: Soft. Nondistended. Nontender. Positive bowel sounds NEUROLOGIC: Alert and oriented. Cranial nerves II through XII grossly intact. ASSESSMENT: 1. Acute diverticulitis PLAN: 1. Advance diet 2. Continue antibiotics 3. Stable for discharge from a surgical perspective. Follow up outpatient with Dr. Redmond Nurse practitioner note has been reviewed by physician. Signing provider agrees with the documented findings, assessment, and plan of care. Objective - Vital Signs Vital signs: Vital Signs Temp 98.2 F 10/15/18 08:25 Pulse 75 10/15/18 08:25 Resp 16 10/15/18 08:25 BP 108/69 10/15/18 08:25 Pulse Ox 96 10/15/18 08:25 Intake & Output 10/14/18 10/15/18 10/15/18 18:59 06:59 18:59 Intake Total 600 Balance 600 Intake: Oral 600 Other: Voiding Method Toilet # Voids 2 1 3 - Labs CBC & Chem 7: 10/15/18 09:01 10/15/18 09:01 Labs: Abnormal Lab Results - Last 24 Hours (Table) 10/15/18 10/15/18 Range/Units 09:01 09:01 RBC 3.71 L (3.80-5.40) m/uL RDW 16.1 H (11.5-15.5) % Potassium 3.4 L (3.5-5.1) mmol/L BUN 6 L (7-17) mg/dL Glucose 131 H (74-99) mg/dL Total Protein 6.2 L (6.3-8.2) g/dL Microbiology - Last 24 Hours (Table) 10/13/18 13:15 Blood Culture - Preliminary Blood No Growth after 24 hours
--- NOTE | 2018-10-16 15:04 | P.DS ---
Providers Date of admission: 10/13/18 16:19 Expected date of discharge: 10/15/18 Attending physician: Sintia Nance Consults: 10/13/18 15:21 Consult Physician Routine Consulting Provider: Marine Cano Consult Reason/Comments: Diverticulitis without abscesss, ileus, possible pancreatic head mass Do you want consulting provider notified?: Yes 10/14/18 17:33 Consult Physician Routine Consulting Provider: Jesus Redmond Consult Reason/Comments: Diverticulitis Do you want consulting provider notified?: Already Contacted Primary care physician: [facility] Course: This is a 72-year-old lady patient of Dr. Cook. She has underlying history of hypertension hypothyroidism, GERD admitted to the emergency room secondary to right lower quadrant pain for the past 2-3 days. Patient is sharp, 6 out of 10, constant with symptoms that is worrisome for her eyes she thought that this could be related to the appendix, patient has prior history of diverticulitis in the past in this feels quite different. She was seen in urgent care and urinalysis was done and was subsequently sent to the hospital for evaluation to rule out appendicitis. Patient had a normal colonoscopy in September while he of [address] Romeo Peng. Patient denies melena hematochezia, no sick contacts, no fever no chills. Imaging studies in the emergency room showed CAT scan of the abdomen and pelvis shows cholecystectomy with bag area in the pancreatic head 1.4 x 0.7 cm hypodensity, which is not seen previously, surgical changes consistent with prior Joe fundoplication, no mesenteric lymph nodes noted, small bowels are fluid-filled, no dilated small bowel loops or discrete transition point is identified sigmoid diverticulitis is noted with moderate surrounding pericolonic inflammatory fat stranding along the mid sigmoid, bladder is nondistended, ovaries are not well seen there is also post surgical changes right lower quadrant could relate to prior appendectomy or prior bowel resection, recommend tumor markers and a close 2 month follow-up for the pancreas protocol with CT or MRI to exclude an early small mass of the pancreas 10/14: Patient has been afebrile, heart rate 68, blood pressure 92/59, pulse ox 94% on room air. Stool for occult blood is negative. Consult with GI in place. Patient is continued on Rocephin and Flagyl. Patient remains nothing by mouth. She denies any nausea. Her last bowel movement was 8 PM last evening and she's had a lot of gas. She denies any blood in her stools. She denies any fever or chills. Patient has mild tenderness to the bilateral lower quadrants. Abdominal ultrasound will be ordered for concern shadow at the pancreatic head. CA 199 is pending. 10/15: This morning, patient denies any nausea or vomiting, abdominal pain is resolved. Patient is tolerating diet. She did have a bowel movement this morning. White count is 4.3 and hemoglobin 11.5. Patient has been cleared for discharge by consultants. We'll plan to advance diet for lunch and if she tolerates this, patient will be discharged home in stable condition. Patient will be provided antibiotics to continue course for treatment of acute diverticulitis. CA 199 is 15.6, lipase 44 Discharge diagnoses: 1. Acute diverticulitis, without evidence of perforation or abscess. 2. Mild small bowel ileus, resolved. 3. Hypothyroidism 4. Abnormal pancreatic CT, with hypodensity noted and would need a 2 month computed tomography scan attention to the pancreatic area. 5. Hypertension 6. Prior history of right dermoid cyst with right oophorectomy possible appendectomy during the procedure Discharge plan: home today Impression and plan of care have been directed as dictated by the signing physician. Talia Mejia nurse practitioner acting as scribe for signing physician. Patient Condition at Discharge: Good Plan - Discharge Summary Discharge Rx Participant: Yes New Discharge Prescriptions: New Ciprofloxacin HCl [Cipro] 500 mg PO Q12HR #14 tablet metroNIDAZOLE [Flagyl] 500 mg PO TID #21 tab Continue Levothyroxine Sodium [Synthroid] 25 mcg PO QAM [place]-3 Acid Ethyl Esters [Lovaza] 3 gm PO TID Candesartan/Hydrochlorothiazid [Atacand Hct 32-12.5 mg Tab] 1 tab PO QAM Cetirizine HCl [Zyrtec] 10 mg PO DAILY Allopurinol [Zyloprim] 300 mg PO DAILY Discharge Medication List Levothyroxine Sodium [Synthroid] 25 mcg PO QAM 03/17/16 [History] [place]-3 Acid Ethyl Esters [Lovaza] 3 gm PO TID 03/17/16 [History] Candesartan/Hydrochlorothiazid [Atacand Hct 32-12.5 mg Tab] 1 tab PO QAM 06/13/17 [History] Cetirizine HCl [Zyrtec] 10 mg PO DAILY 05/02/18 [History] Allopurinol [Zyloprim] 300 mg PO DAILY 10/13/18 [History] Ciprofloxacin HCl [Cipro] 500 mg PO Q12HR #14 tablet 10/15/18 [Rx] metroNIDAZOLE [Flagyl] 500 mg PO TID #21 tab 10/15/18 [Rx] Follow up Appointment(s)/Referral(s): Marine Cano MD [STAFF PHYSICIAN] - 3 Weeks (11-06-18 at 4pm) Reza Cook DO [Primary Care Provider] - 1 Week (october 21 at 2:00pm) Jesus Redmond MD [STAFF PHYSICIAN] - 1 Week (october 24 at 2:15pm) Activity/Diet/Wound Care/Special Instructions: Soft diet/low residue tomorrow for 2 weeks. Discharge Disposition: HOME SELF-CARE
== END 2018-10-15 13:42 | disposition home or self-care (01) | DRG 392 ==
LOC: EC 12:21 → 4SSUR 16:19 → 6PED 10-14 18:01
PROVIDERS: ADMIT Family Medicine; ATTEND Family Medicine
DX: K57.32 Diverticulitis of large intestine without perforation or abscess without bleeding (principal); K56.7 Ileus, unspecified; D64.9 Anemia, unspecified; K21.9 Gastro-esophageal reflux disease without esophagitis; I10 Essential (primary) hypertension; E03.9 Hypothyroidism, unspecified; K64.4 Residual hemorrhoidal skin tags; K86.9 Disease of pancreas, unspecified; M19.90 Unspecified osteoarthritis, unspecified site; M85.80 Other specified disorders of bone density and structure, unspecified site; Z90.49 Acquired absence of other specified parts of digestive tract; Z86.59 Personal history of other mental and behavioral disorders; Z90.721 Acquired absence of ovaries, unilateral; Z98.890 Other specified postprocedural states; Z79.890 Hormone replacement therapy; Z79.899 Other long term (current) drug therapy; Z88.0 Allergy status to penicillin; Z88.2 Allergy status to sulfonamides; Z83.3 Family history of diabetes mellitus
CPT/HCPCS: 36415; 74177; 74183; 76705; 80053; 81003; 82150; 82272; 83605; 83690; 85025; 85610; 85730; 86301; 86850; 86900; 86901; 87040; 96365; 99285

== ENCOUNTER → 2018-11-28 | Outpatient (CLI) | payer MEDICARE ==
[2018-11-28 15:15] LABS: HCT 38.1 % (34.0-46.0); HGB 12.4 gm/dL (11.4-16.0); MCH 31.7 pg (25.0-35.0); MCHC 32.7 g/dL (31.0-37.0); MCV 96.9 fL (80.0-100.0); Mean Platelet Volume 6.7; Platelet Count 263 k/uL (150-450); RBC 3.93 m/uL (3.80-5.40); RDW 14.7 % (11.5-15.5)
[2018-11-28 15:23] LABS: Potassium 4.2 mmol/L (3.5-5.1)
== END | disposition home or self-care (01) ==
LOC: LABPAT 13:14
PROVIDERS: ATTEND Family Medicine
DX: Z01.812 Encounter for preprocedural laboratory examination (principal); Z01.818 Encounter for other preprocedural examination; K57.33 Diverticulitis of large intestine without perforation or abscess with bleeding
CPT/HCPCS: 36415; 80051; 85027; 86850; 86900; 86901; 93005

== ENCOUNTER 2018-12-04 11:52 | Inpatient (IN) | payer MEDICARE ==
[2018-11-29 12:13] VITALS: BMI 25.7
[~2018-12-04 11:52] MED LIST changes: +HEPARIN SODIUM,PORCINE 5,000 UNIT/ML 1 ML VIAL SQ ONE; +HYDROmorphone 0.5 MG/0.5 ML SYRINGE IVP PRN; -LACTATED RINGERS 1,000 ML IV SCH; +LIDOCAINE 1% 20 ML VIAL (10MG/ML) FOR IV START INTRADERMA PRN; +ONDANSETRON 4 MG/2 ML VIAL IVP ONE; +metroNIDAZOLE-NS PMX 500 MG in SALINE 1 100ML.BAG IVPB ONE
[2018-12-04] MEDS: LACTATED RINGERS 1,000 ML IV SCH (12:38)
--- NOTE | 2018-12-04 13:11 | P.GSHP ---
History of Present Illness H&P Date: 12/04/18 Chief Complaint: Diverticulitis This a 72-year-old female with history of diverticulitis. Patient presents today for low anterior resection. Patient's aware the risk of colostomy, wound infection, bleeding or bowel injury Past Medical History Past Medical History: Asthma, GERD/Reflux, Hypertension, Osteoarthritis (OA), Thyroid Disorder Additional Past Medical History / Comment(s): Hypothyroid. Osteopenia.dermoid cyst in 1981, diverticulitis History of Any Multi-Drug Resistant Organisms: None Reported Past Surgical History: Cholecystectomy, Orthopedic Surgery Additional Past Surgical History / Comment(s): right ankle, rt oopherectomy. 04/05/2018 Lap meeta for hiatal hernia. Colonoscopy 2014. Past Anesthesia/Blood Transfusion Reactions: Family History of Problems w/ Anesthesia, Postoperative Nausea & Vomiting (PONV) Additional Past Anesthesia/Blood Transfusion Reaction / Comment(s): sister has PONV Smoking Status: Never smoker - Past Family History Mother Family Medical History: No Reported History Father Family Medical History: Diabetes Mellitus Medications and Allergies Home Medications Medication Instructions Recorded Confirmed Type Levothyroxine Sodium [Synthroid] 25 mcg PO QAM 03/17/16 12/04/18 History [place]-3 Acid Ethyl Esters [Lovaza] 3 gm PO TID 03/17/16 12/04/18 History Candesartan/Hydrochlorothiazid 1 tab PO QAM 06/13/17 12/04/18 History [Atacand Hct 32-12.5 mg Tab] Cetirizine HCl [Zyrtec] 10 mg PO DAILY 05/02/18 12/04/18 History Allopurinol [Zyloprim] 300 mg PO DAILY 10/13/18 12/04/18 History Albuterol Sulfate [Proair Hfa] 1 - 2 puff INHALATION Q6HR PRN 11/29/18 12/04/18 History Multivitamins, Thera [Multivitamin 1 tab PO DAILY 11/29/18 12/04/18 History (formulary)] Vitamin B Complex 1 each PO DAILY 11/29/18 12/04/18 History Acetaminophen 650 mg PO DAILY PRN 12/04/18 12/04/18 History Allergies Allergy/AdvReac Type Severity Reaction Status Date / Time Penicillins Allergy Severe Rash/Hives Verified 08/21/19 12:22 Sulfa (Sulfonamide Allergy Rash/Hives Verified 12/04/18 12:22 Antibiotics) Surgical - Exam Vital Signs Temp Pulse Resp BP Pulse Ox 98.9 F 85 16 133/82 96 12/04/18 12:20 12/04/18 12:20 12/04/18 12:20 12/04/18 12:20 12/04/18 12:20 - General well developed, well nourished, no distress - Eyes PERRL - ENT normal pinna - Neck no masses - Respiratory normal expansion - Cardiovascular Rhythm: regular - Abdomen Abdomen: soft, non tender Assessment and Plan Assessment: History of diverticulitis. We'll perform low anterior resection
[2018-12-04] MEDS ORDERED: MIDAZOLAM (PF) 2 MG/2 ML VIAL IVP ONE (13:13)
[2018-12-04] MEDS ORDERED: MIDAZOLAM 2 MG/2 ML VIAL ONE (13:32)
[2018-12-04] MEDS ORDERED: GLYCOPYRROLATE 0.2 MG/ML 2 ML VIAL ONE (13:32)
[2018-12-04] MEDS ORDERED: PROPOFOL 10 MG/ML 20 ML VIAL IV ONE (13:32)
[2018-12-04] MEDS ORDERED: NEOSTIGMINE 1 MG/ML 10 ML VIAL ONE (13:32)
[2018-12-04] MEDS ORDERED: LIDOCAINE 1% INJ 10MG/ML (20 ML MDV) ONE (13:32)
[2018-12-04] MEDS ORDERED: ePHEDrine SULFATE/0.9% NACL/PF 50 MG/5 ML SYRINGE IV ONE (13:32)
[2018-12-04] MEDS ORDERED: HYDROmorphone (PF) 1 MG/ML ONE (13:32)
[2018-12-04] MEDS ORDERED: ROCURONIUM BROMIDE 10 MG/ML 10 ML VIAL IV ONE (13:32)
[2018-12-04] MEDS ORDERED: SUCCINYLCHOLINE CHLORIDE 100 MG/5 ML SYR IV ONE (13:32)
[2018-12-04] MEDS ORDERED: fentaNYL (PF) 50 MCG/ML 2 ML AMP ONE (13:32)
[2018-12-04] MEDS ORDERED: ROPIVACAINE 250 MG, HYDROMORPHONE (PF) 5 MG in SODIUM CHLORIDE 0.9% 200 ML EPIDURAL PRN (13:44)
[2018-12-04] MEDS ORDERED: NALOXONE 0.4 MG/ML 1 ML VIAL IV PRN (13:44)
[2018-12-04] MEDS ORDERED: LACTATED RINGERS 1,000 ML IV ONE ×2 (14:05→15:19)
[2018-12-04] MEDS ORDERED: BENZOCAINE/MENTHOL LOZENG 1 EACH LOZENGE MUCOUS MEM PRN (15:07)
--- NOTE | 2018-12-04 15:13 | P.OP ---
Date of Procedure: 12/04/18 Preoperative Diagnosis: Diverticulitis Postoperative Diagnosis: Diverticulitis Procedure(s) Performed: Low anterior resection Appendectomy Anesthesia: TSERING Surgeon: Jesus Redmond Pathology: other (Appendix, sigmoid colon) Condition: stable Disposition: PACU Description of Procedure: DESCRIPTION OF PROCEDURE: The patient was placed on the operating table in the supine position. Patient received a general anesthesia. Patient was then placed in the dorsal lithotomy position. The patients abdomen was prepped and draped in the usual sterile fashion. Through a low midline incision, the abdomen was entered. The Lucila retractor was placed in the wound. The stomach appeared normal. The small bowel appeared normal. The liver appeared normal. The right colon and transverse colon appeared normal. On the left colon, there was an extensive diverticulosis noted. The sigmoid colon was then mobilized by dividing the white line of Toldt with electrocautery. At this point, the proximal sigmoid colon was transected with a GI stapler after a window had been made in the mesentery. The distal sigmoid colon was then dissected. Mesentery was taken down the Enseal device 0 silk ties. At a point beyond the lesion, the bowel was then transected with a Proximate stapler. This was then removed. The left colon was then taken down in order to provide adequate lengthening of the sigmoid colon by dividing the white line of Toldt's. At this point, the auto purse-string suture device was placed across the proximal colon and fired. The colon was then opened. The 29 mm EEA anvil was then placed into the colon and then the purse-string was secured. The EEA stapler device was then placed in the patients anus and passed into the rectum. The nail for the EEA was then brought out through the distal rectum and then attached to the anvil. The EEA stapler device was then fired. The anastomosis was inspected. There were 2 good donuts of tissue removed from the EEA stapler. The anastomosis was then tested under water and there was no air leak seen. The appendix was visualized in the pelvis. The mesial appendix was divided using Enseal device and then the appendix was divided using 2-0 silk ties and electrocautery. The specimens of pathology. At this point the abdomen was then irrigated. There was no bleeding seen. The fascia was then closed with double stranded #1 PDS. The skin was closed with ponce. The patient tolerated the procedure well.
--- NOTE | 2018-12-04 17:48 | P.CONS ---
History of Present Illness - Reason for Consult Consult date: 12/04/18 Medical management Requesting physician: Jesus Redmond - Chief Complaint Status post low anterior resectio due to significant diverticulitis - History of Present Illness This is a 72-year-old female one of Dr. Cook with a previous medical history significant for hypertension and hypertensive cardio vascular disease, hyperlipidemia, hypothyroidism, GERD, asthma, history of significant diverticulitis for which she was recently hospitalized in October 2018 for left sigmoid diverticulitis with perforation and she ended up going for low anterior resection of the sigmoid With end-to-end anastomosis, and we were asked to see the patient for medical management. Patient is laying down in bed in no apparent distress she denies any chest pain, shortness breath, she currently has an epidural catheter in place, she continues to be on IV fluid, she has an abdominal binder in place, her abdominal pain is controlled at this point, she is not having any nausea, or vomiting. Review of Systems Constitutional: Denies chronic headaches, Denies lethargy, Denies malaise, Denies weakness Eyes: denies blurred vision, denies bulging eye, denies decreased vision Ears: deny: decreased hearing Ears, nose, mouth and throat: Denies dysphagia, Denies neck lump, Denies swelling in throat, Denies sore throat Cardiovascular: Denies chest pain, Denies decreased exercise tolerance, Denies lightheadedness, Denies rapid heart beat, Denies shortness of breath, Denies syncope Respiratory: Denies congestion, Denies cough, Denies cough with sputum, Denies respiratory infections, Denies sleep apnea, Denies snoring, Denies wheezing Gastrointestinal: Reports abdominal pain, Denies BRBPR, Denies excessive gas, Denies hematemesis, Denies hematochezia, Denies loss of appetite, Denies melena, Denies nausea, Denies vomiting Genitourinary: Denies dysuria, Denies hematuria Musculoskeletal: Denies myalgias Musculoskeletal: absent: ankle pain, ankle stiffness, ankle swelling, elbow pain, elbow stiffness, elbow swelling, foot pain, foot stiffness, foot swelling, hand pain, hand stiffness, hand swelling, hip pain, hip stiffness, hip swelling, knee pain, knee stiffness, knee swelling, shoulder pain, shoulder stiffness, shoulder swelling, wrist pain, wrist stiffness, wrist swelling Integumentary: Denies pruritus, Denies rash Neurological: Denies numbness, Denies weakness Psychiatric: Denies anxiety, Denies depression Endocrine: Denies fatigue, Denies weight change Past Medical History Past Medical History: Asthma, GERD/Reflux, Hyperlipidemia, Hypertension, Osteoarthritis (OA), Thyroid Disorder Additional Past Medical History / Comment(s): Hypothyroid. Osteopenia.dermoid cyst in 1981, diverticulitis History of Any Multi-Drug Resistant Organisms: None Reported Past Surgical History: Cholecystectomy, Orthopedic Surgery Additional Past Surgical History / Comment(s): right ankle, rt oopherectomy. 04/05/2018 Lap meeta for hiatal hernia. Colonoscopy 2014. Past Anesthesia/Blood Transfusion Reactions: Family History of Problems w/ Anest hesia, Postoperative Nausea & Vomiting (PONV) Additional Past Anesthesia/Blood Transfusion Reaction / Comm: sister has PONV Smoking Status: Never smoker - Past Family History Mother Family Medical History: No Reported History (Mother at age of 96 from old age.) Father Family Medical History: Diabetes Mellitus (Father at age of 72 from diabetes mellitus type 1.) Brother(s) Family Medical History: No Reported History (Patient had a half brother who in an accident.) Sister(s) Family Medical History: No Reported History (Patient has 2 sisters no major medical problems.) Son(s) Family Medical History: No Reported History (Patient has 2 sons no major medical problems.) Daughter(s) Family Medical History: No Reported History (Patient has one daughter no major medical problems.) Medications and Allergies Home Medications Medication Instructions Recorded Confirmed Type Levothyroxine Sodium [Synthroid] 25 mcg PO QAM 03/17/16 12/04/18 History Nicollet-3 Acid Ethyl Esters [Lovaza] 3 gm PO TID 03/17/16 12/04/18 History Candesartan/Hydrochlorothiazid 1 tab PO QAM 06/13/17 12/04/18 History [Atacand Hct 32-12.5 mg Tab] Cetirizine HCl [Zyrtec] 10 mg PO DAILY 05/02/18 12/04/18 History Allopurinol [Zyloprim] 300 mg PO DAILY 10/13/18 12/04/18 History Albuterol Sulfate [Proair Hfa] 1 - 2 puff INHALATION Q6HR PRN 11/29/18 12/04/18 History Multivitamins, Thera [Multivitamin 1 tab PO DAILY 11/29/18 12/04/18 History (formulary)] Vitamin B Complex 1 each PO DAILY 11/29/18 12/04/18 History Acetaminophen 650 mg PO DAILY PRN 12/04/18 12/04/18 History Allergies Allergy/AdvReac Type Severity Reaction Status Date / Time Penicillins Allergy Severe Rash/Hives Verified 12/04/18 12:22 Sulfa (Sulfonamide Allergy Rash/Hives Verified 12/04/18 12:22 Antibiotics) Physical Exam Vitals: Vital Signs Temp Pulse Resp BP Pulse Ox 12/04/18 16:02 58 L 14 107/56 100 12/04/18 15:45 61 14 110/59 99 12/04/18 15:30 66 18 108/56 100 12/04/18 15:16 71 16 104/56 99 12/04/18 15:01 97.3 F L 80 18 102/51 94 L 12/04/18 12:20 98.9 F 85 16 133/82 96 Intake and Output 12/04/18 12/04/18 12/04/18 06:59 14:59 22:59 Intake Total 2049 100 Output Total 150 Balance 1899 100 Intake: IV 2049 100 Output: Urine 100 Estimated Blood Loss 50 Other: Voiding Method Indwelling Catheter - Constitutional General appearance: average body habitus, no acute distress - EENT Eyes: anicteric sclerae, EOMI, PERRLA, no ptosis, no scleral icterus, normal appearance ENT: hearing grossly normal, NA/AT, normal oropharynx, no thrush Ears: bilateral: normal - Neck Neck: no lymphadenopathy, normal ROM, no rigidity, no stridor, no thyromegaly Carotids: bilateral: upstroke normal Thyroid: bilateral: normal size - Respiratory Respiratory: bilateral: diminished, negative: dullness, rales, rhonchi, wheezing, prolonged expiration - Cardiovascular Rhythm: regular Heart sounds: normal: S1, S2 Abnormal Heart Sounds: no systolic murmur, no diastolic murmur, no S3 Gallop, no S4 Gallop, no click - Gastrointestinal General gastrointestinal: decreased bowel sounds, soft, tenderness (Incision covered with a dressing and abdominal binder.) - Integumentary Integumentary: normal, normal turgor - Neurologic Neurologic: CNII-XII intact - Musculoskeletal Musculoskeletal: strength equal bilaterally - Psychiatric Psychiatric: A&O x's 3, appropriate affect, intact judgment & insight Assessment and Plan Assessment: Assessment and plan: 1. Postoperative day #0 status post low anterior resection of the sigmoid due to significant diverticulitis. Patient is currently on nothing per mouth, continue with current epidural catheter for pain management, continue with IV fluid resuscitation, continue DVT prophylaxis, continue with GI prophylaxis, hold off oral medication at this time for the next 24 hours, patient was instructed to use incentive spirometer to reduce the incidence of atelectasis and healthcare associated pneumonia. 2. Hypertension and hypertensive cardiovascular disease. Hold off Atacand until tomorrow morning, patient did receive her dose in the morning. 3. Hypothyroidism. Resume levothyroxine 25 g orally once every day tomorrow morning. 4. Asthma. Stable at this time continue with nebulized treatment as needed. 5. DVT prophylaxis. Continue patient on heparin 5000 units subcutaneously every 8 hours. 6. GI prophylaxis. Continue patient on Pepcid 20 mg IV push every 12 hours. 7. Thank you for the consult we will follow with you.
[2018-12-04] MEDS: ONDANSETRON 4 MG/2 ML VIAL IVP PRN (18:12)
[2018-12-04 19:13] LABS: African American GFR (CKD) >90 (>60 ml/min/1.73 sqM); Anion Gap 8 mmol/L; Blood Urea Nitrogen 9 mg/dL (7-17); Calcium 8.6 mg/dL (8.4-10.2); Carbon Dioxide 26 mmol/L (22-30); Chloride 105 mmol/L (98-107); Glucose 106 mg/dL (74-99); Potassium 2.8 mmol/L (3.5-5.1); Sodium 139 mmol/L (137-145)
[2018-12-04] MEDS: METOCLOPRAMIDE 5 MG/ML 2 ML VIAL IVP PRN (19:16)
[2018-12-04 19:20] LABS: Basophils % (A) 0 %; Eosinophils # (A) 0.1 k/uL (0-0.7); Eosinophils % (A) 2 %; HCT 35.9 % (34.0-46.0); HGB 11.8 gm/dL (11.4-16.0); Lymphocytes # (A) 0.9 k/uL (1.0-4.8); Lymphocytes % (A) 14 %; MCH 31.9 pg (25.0-35.0); MCHC 32.9 g/dL (31.0-37.0); MCV 96.9 fL (80.0-100.0); Monocytes # (A) 0.2 k/uL (0-1.0); Monocytes % (A) 3 %; Neutrophils # (A) 4.8 k/uL (1.3-7.7); Neutrophils % (A) 79 %; Platelet Count 226 k/uL (150-450); RBC 3.71 m/uL (3.80-5.40); RDW 15.9 % (11.5-15.5); WBC 6.1 k/uL (3.8-10.6)
[2018-12-04] MEDS: D5-0.45% NACL WITH KCL 20MEQ/L 1,000 ML IV SCH ×2 (19:22→23:24)
[2018-12-04] MEDS: FAMOTIDINE 20 MG/2 ML VIAL IV SCH (20:30)
[2018-12-04] MEDS ORDERED: POTASSIUM CHLORIDE 20 MEQ in WATER FOR INJECTION 1 100ML.BAG IVPB ONE ×2 (20:30→22:30)
[2018-12-04] MEDS: HEPARIN SODIUM,PORCINE 5,000 UNIT/ML 1 ML VIAL SQ SCH (23:23)
[2018-12-05 05:15] LABS: Magnesium 1.7 mg/dL (1.6-2.3); Potassium 4.5 mmol/L (3.5-5.1)
[2018-12-05] MEDS: LACTATED RINGERS 1,000 ML IV SCH (05:18)
[2018-12-05] MEDS: FAMOTIDINE 20 MG/2 ML VIAL IV SCH ×2 (07:49→20:32)
[2018-12-05] MEDS: METOCLOPRAMIDE 5 MG/ML 2 ML VIAL IVP PRN ×2 (07:49→16:11)
[2018-12-05] MEDS: HEPARIN SODIUM,PORCINE 5,000 UNIT/ML 1 ML VIAL SQ SCH ×3 (07:50→23:11)
[2018-12-05] MEDS: ALVIMOPAN 12 MG CAPSULE PO SCH ×2 (07:50→20:32)
--- NOTE | 2018-12-05 08:10 | P.PN ---
Progress Note - Text 12/05 750am 72-year-old female status post right colectomy by Dr. Redmond. Patient has an epidural catheter for postop pain control with the solution running at 8 mL an hour. She was complaining of dizziness the nurse turned, her the rate down to a 6 mL an hour, her blood pressure is normal at this time. She has a VAS score of 0 with no motor or sensory deficit plan to continue epidural infusion
[2018-12-05] MEDS ORDERED: SODIUM CHLORIDE 0.9% 1,000 ML IV ONE ×2 (08:36→13:35)
[2018-12-05] MEDS: D5-0.45% NACL WITH KCL 20MEQ/L 1,000 ML IV SCH ×3 (09:31→23:11)
[2018-12-05] MEDS: ONDANSETRON 4 MG/2 ML VIAL IVP PRN (09:34)
[2018-12-05] MEDS ORDERED: MECLIZINE 25 MG TAB PO PRN (10:39)
--- NOTE | 2018-12-05 13:25 | P.PN ---
Subjective Progress Note Date: 12/05/18 This is a 72-year-old female one of Dr. Cook with a previous medical history significant for hypertension and hypertensive cardio vascular disease, hyperlipidemia, hypothyroidism, GERD, asthma, history of significant diverticulitis for which she was recently hospitalized in October 2018 for left sigmoid diverticulitis with perforation and she ended up going for low anterior resection of the sigmoid With end-to-end anastomosis, and we were asked to see the patient for medical management. Patient is laying down in bed in no apparent distress she denies any chest pain, shortness breath, she currently has an epidural catheter in place, she continues to be on IV fluid, she has an abdominal binder in place, her abdominal pain is controlled at this point, she is not having any nausea, or vomiting. 12/05: Patient is complaining of vertigo. She is continued on epidural which was decreased this morning. She is complaining of lower abdominal muscle spasms. Reynoso catheter is in place. Repeat potassium is at 4.5. Patient states that she is having difficulty waking up and feels very drowsy. Patient's epidural may need to be decreased further today. Objective - Vital Signs Vital signs: Vital Signs Temp 98.6 F 12/05/18 07:00 Pulse 71 12/05/18 08:34 Resp 16 12/05/18 08:34 BP 90/54 12/05/18 08:34 Pulse Ox 100 12/05/18 08:34 Intake & Output 12/04/18 12/05/18 12/05/18 18:59 06:59 18:59 Intake Total 2150 Output Total 500 350 Balance 1650 -350 Intake: IV 2150 Output: Urine 450 350 Estimated Blood Loss 50 Other: Voiding Method Indwelling Catheter Indwelling Catheter - Exam Review of Systems Constitutional: Denies chronic headaches, Denies lethargy, Denies malaise, Denies weakness. Reports dizziness Eyes: denies blurred vision, denies bulging eye, denies decreased vision Ears: deny: decreased hearing Ears, nose, mouth and throat: Denies dysphagia, Denies neck lump, Denies swell ing in throat, Denies sore throat Cardiovascular: Denies chest pain, Denies decreased exercise tolerance, Denies lightheadedness, Denies rapid heart beat, Denies shortness of breath, Denies syncope Respiratory: Denies congestion, Denies cough, Denies cough with sputum, Denies respiratory infections, Denies sleep apnea, Denies snoring, Denies wheezing Gastrointestinal: Reports abdominal pain, Denies BRBPR, Denies excessive gas, Denies hematemesis, Denies hematochezia, Denies loss of appetite, Denies melena, Denies nausea, Denies vomiting Genitourinary: Denies dysuria, Denies hematuria Musculoskeletal: Denies myalgias Musculoskeletal: absent: ankle pain, ankle stiffness, ankle swelling, elbow pain, elbow stiffness, elbow swelling, foot pain, foot stiffness, foot swelling, hand pain, hand stiffness, hand swelling, hip pain, hip stiffness, hip swelling, knee pain, knee stiffness, knee swelling, shoulder pain, shoulder stiffness, shoulder swelling, wrist pain, wrist stiffness, wrist swelling Integumentary: Denies pruritus, Denies rash Neurological: Denies numbness, Denies weakness Psychiatric: Denies anxiety, Denies depression Endocrine: Denies fatigue, Denies weight change Physical exam: - Constitutional General appearance: average body habitus, no acute distress - EENT Eyes: anicteric sclerae, EOMI, PERRLA, no ptosis, no scleral icterus, normal appearance ENT: hearing grossly normal, NA/AT, normal oropharynx, no thrush Ears: bilateral: normal - Neck Neck: no lymphadenopathy, normal ROM, no rigidity, no stridor, no thyromegaly Carotids: bilateral: upstroke normal Thyroid: bilateral: normal size - Respiratory Respiratory: bilateral: diminished, negative: dullness, rales, rhonchi, wheezing, prolonged expiration - Cardiovascular Rhythm: regular Heart sounds: normal: S1, S2 Abnormal Heart Sounds: no systolic murmur, no diastolic murmur, no S3 Gallop, no S4 Gallop, no click - Gastrointestinal General gastrointestinal: decreased bowel sounds, soft, tenderness (Incision covered with a dressing and abdominal binder.) Epidural in place. - Integumentary Integumentary: normal, normal turgor - Neurologic Neurologic: CNII-XII intact - Musculoskeletal Musculoskeletal: strength equal bilaterally - Psychiatric Psychiatric: A&O x's 3, appropriate affect, intact judgment & insight - Labs CBC & Chem 7: 12/04/18 18:43 12/05/18 02:32 Labs: Abnormal Lab Results - Last 24 Hours (Table) 12/04/18 12/04/18 Range/Units 18:43 18:43 RBC 3.71 L (3.80-5.40) m/uL RDW 15.9 H (11.5-15.5) % Lymphocytes # 0.9 L (1.0-4.8) k/uL Potassium 2.8 L (3.5-5.1) mmol/L Glucose 106 H (74-99) mg/dL Assessment and Plan Plan: 1. Postoperative day #1 status post low anterior resection of the sigmoid due to significant diverticulitis. Patient is currently on clear liquid diet, continue with current epidural catheter for pain management with patient may need to be decreased due to drowsiness, continue with IV fluid resuscitation, continue DVT prophylaxis, continue with GI prophylaxis, home medication will be addressed, continue to use incentive spirometer to reduce the incidence of atelectasis and healthcare associated pneumonia. Patient is on Entereg. 2. Hypertension and hypertensive cardiovascular disease. Hold off Atacand today as blood pressure is on the low side. 3. Hypothyroidism. Resume levothyroxine 25 g orally once every day tomorrow morning. 4. Asthma. Stable at this time continue with nebulized treatment as needed. 5. DVT prophylaxis. Continue patient on heparin 5000 units subcutaneously every 8 hours. 6. GI prophylaxis. Continue patient on Pepcid 20 mg IV push every 12 hours. 7. Thank you for the consult we will follow with you. Discharge plan: Home with [facility]. Impression and plan of care have been directed as dictated by the signing physician. Talia Mejia nurse practitioner acting as scribe for signing physician.
--- NOTE | 2018-12-05 13:35 | P.PN ---
Subjective Progress Note Date: 12/05/18 CHIEF COMPLAINT: diverticulitis HISTORY OF PRESENT ILLNESS: patient underwent low anterior resection and appendectomy with Dr. Redmond. Postop day #1. Patient reports feeling groggy this morning. Epidural has been decreased by RN. Blood pressure low 90s. Patient received 1 L fluid bolus this morning. She denies passing flatus. Denies nausea or vomiting. Has not been OOB yet today. PHYSICAL EXAM: VITAL SIGNS: Reviewed. GENERAL: Well-developed in no acute distress. HEENT: No sclera icterus. Extraocular movements grossly intact. Moist buccal mucosa. Head is atraumatic, normocephalic. ABDOMEN: Soft. Nondistended. Appropriate surgical tenderness. Dressing to midline. Abdominal binder noted. NEUROLOGIC: Alert and oriented. Cranial nerves II through XII grossly intact. ASSESSMENT: 1. History of diverticulitis, status post low anterior resection and appendectomy PLAN: 1. Continue IV fluids 2. Continue epidural. Will discontinue POD #3 (Sunday) 3. Continue lu catheter while epidural in place 4. Incentive spirometry 5. Activity as tolerated. Patient encouraged to be OOB and ambulatory today 6. Continue clear liquid diet until patient begins passing flatus 7. Magnesium IV 2 gram x 1 dose to maintain magnesium level greater than 2.0 Nurse practitioner note has been reviewed by physician. Signing provider agrees with the documented findings, assessment, and plan of care. Objective - Vital Signs Vital signs: Vital Signs Temp 98.6 F 12/05/18 07:00 Pulse 71 12/05/18 08:34 Resp 16 12/05/18 08:34 BP 90/54 12/05/18 08:34 Pulse Ox 100 12/05/18 08:34 Intake & Output 12/04/18 12/05/18 12/05/18 18:59 06:59 18:59 Intake Total 2150 Output Total 500 350 Balance 1650 -350 Intake: IV 2150 Output: Urine 450 350 Estimated Blood Loss 50 Other: Voiding Method Indwelling Catheter Indwelling Catheter - Labs CBC & Chem 7: 12/04/18 18:43 12/05/18 02:32 Labs: Abnormal Lab Results - Last 24 Hours (Table) 12/04/18 12/04/18 Range/Units 18:43 18:43 RBC 3.71 L (3.80-5.40) m/uL RDW 15.9 H (11.5-15.5) % Lymphocytes # 0.9 L (1.0-4.8) k/uL Potassium 2.8 L (3.5-5.1) mmol/L Glucose 106 H (74-99) mg/dL
[2018-12-05] MEDS: MAGNESIUM SULFATE-D5W PMX 1 GM in DEXTROSE/WATER 1 100ML.BAG IVPB SCH ×2 (16:13→17:37)
[2018-12-05] MEDS: ALBUTEROL NEBULIZED 2.5 MG/3 ML INHALATION PRN (20:20)
[2018-12-06] MEDS: LEVOTHYROXINE 25 MCG TAB PO SCH (05:11)
[2018-12-06] MEDS: LACTATED RINGERS 1,000 ML IV SCH (05:12)
[2018-12-06] MEDS: ALBUTEROL NEBULIZED 2.5 MG/3 ML INHALATION PRN (07:41)
[2018-12-06] MEDS: HEPARIN SODIUM,PORCINE 5,000 UNIT/ML 1 ML VIAL SQ SCH ×3 (07:56→23:34)
[2018-12-06] MEDS: FAMOTIDINE 20 MG/2 ML VIAL IV SCH ×2 (07:56→19:58)
[2018-12-06] MEDS: ALLOPURINOL 300 MG TAB PO SCH (07:57)
[2018-12-06] MEDS: ALVIMOPAN 12 MG CAPSULE PO SCH ×2 (07:57→19:58)
[2018-12-06] MEDS ORDERED: METOCLOPRAMIDE 5 MG/ML 2 ML VIAL IVP STA (08:35)
[2018-12-06] MEDS: KETOROLAC 30 MG/ML 1 ML VIAL IVP PRN ×2 (08:55→16:56)
[2018-12-06 09:27] LABS: Basophils % (A) 0 %; Eosinophils # (A) 0.1 k/uL (0-0.7); Eosinophils % (A) 1 %; HCT 33.1 % (34.0-46.0); HGB 10.8 gm/dL (11.4-16.0); Lymphocytes # (A) 0.7 k/uL (1.0-4.8); Lymphocytes % (A) 9 %; MCH 31.7 pg (25.0-35.0); MCHC 32.5 g/dL (31.0-37.0); MCV 97.3 fL (80.0-100.0); Macrocytosis Slight; Mean Platelet Volume 7.1; Monocytes # (A) 0.3 k/uL (0-1.0); Monocytes % (A) 4 %; Neutrophils # (A) 6.5 k/uL (1.3-7.7); Neutrophils % (A) 85 %; Platelet Count 214 k/uL (150-450); WBC 7.7 k/uL (3.8-10.6)
[2018-12-06 09:45] LABS: African American GFR (CKD) >90 (>60 ml/min/1.73 sqM); Anion Gap 3 mmol/L; Blood Urea Nitrogen 4 mg/dL (7-17); Calcium 8.2 mg/dL (8.4-10.2); Carbon Dioxide 28 mmol/L (22-30); Chloride 103 mmol/L (98-107); Glucose 143 mg/dL (74-99); Potassium 3.9 mmol/L (3.5-5.1); Sodium 134 mmol/L (137-145)
[2018-12-06] MEDS ORDERED: NALOXONE 0.4 MG/ML 1 ML VIAL IV PRN (10:45)
--- NOTE | 2018-12-06 10:45 | P.PN ---
Progress Note - Text Anesthesia POD 2, 0 648. Status Post low anterior resection and appendectomy under general endotracheal anesthesia with an epidrual catheter placed at T12 for post surgical pain releif. VAS (1, 4) with Ropivicaine 0.1 % and Dilaudid 20 mcg / cc running at 5 cc / hr. Lower extremity strength (4/4). Minimal sedation. Site looks OK. Patient is somewhat nauseated and for this reason I will rewrite the infusate orders without Dilaudid and with a ropivacaine concentration of 0.16%.
[2018-12-06] MEDS ORDERED: SODIUM CHLORIDE 0.9% EPIDURAL PRN (11:00)
[2018-12-06] MEDS ORDERED: ROPIVACAINE EPIDURAL PRN (11:00)
[2018-12-06] MEDS: D5-0.45% NACL WITH KCL 20MEQ/L 1,000 ML IV SCH ×3 (12:29→21:16)
--- NOTE | 2018-12-06 12:35 | P.PN ---
<Ermelinda Montes Hunter - Last Filed: 12/06/18 12:33> Subjective Progress Note Date: 12/06/18 CHIEF COMPLAINT: diverticulitis HISTORY OF PRESENT ILLNESS: patient underwent low anterior resection and appendectomy with Dr. Redmond. Postop day #2. Patient examined this morning at the bedside. Patient states "I feel horrible. Everything hurts. I am nauseous and about to throw up". Patient drinking clear liquid tray upon examination. Patient states "I have to drink these liquids so my bowels will work". She reports abdominal pain is controlled this morning. Reports severe headache. Has not been OOB since surgery. Patient received 2L in fluid boluses yesterday due to decreased urine output and hypotension. Urine output improved. Lu with clear yellow urine. Most recent BP 109/69 and 99/64. Afebrile. WBC 7.7. Hemoglobin 10.8. PHYSICAL EXAM: VITAL SIGNS: Reviewed. GENERAL: Well-developed in no acute distress but appears to be feeling unwell. HEENT: No sclera icterus. Extraocular movements grossly intact. Moist buccal mucosa. Head is atraumatic, normocephalic. ABDOMEN: Soft. Nondistended. Appropriate surgical tenderness. Dressing to midline. Abdominal binder noted. NEUROLOGIC: Alert and oriented. Cranial nerves II through XII grossly intact. ASSESSMENT: 1. History of diverticulitis, status post low anterior resection and appendectomy PLAN: 1. Continue IV fluids 2. Continue epidural. Will discontinue POD #3 (Sunday) 3. Continue lu catheter while epidural in place 4. Incentive spirometry 5. Activity as tolerated. Patient encouraged to be OOB and ambulatory today 6. Downgrade diet to NPO except ice chips and popsicles and medications until nausea improves. 7. Continue Entereg. Reglan 10mg x 1 dose now 8. Toradol 15mg IVP for headache Nurse practitioner note has been reviewed by physician. Signing provider agrees with the documented findings, assessment, and plan of care. Objective - Vital Signs Vital signs: Vital Signs Temp 98.6 F 12/06/18 07:00 Pulse 92 12/06/18 07:51 Resp 16 12/06/18 07:00 BP 99/64 12/06/18 07:00 Pulse Ox 100 12/06/18 07:00 Intake & Output 12/05/18 12/06/1819 18:59 06:59 18:59 Intake Total 300 240 54.867 Output Total 300 600 Balance 0 -360 54.867 Intake: Intake, IV Titration 54.867 Amount Ropivacaine 250 mg 54.867 Hydromorphone (Pf) 5 mg In Sodium Chloride 0.9% 200 ml @ Per Protocol EPIDURAL .Q0M PRN Rx#: [id number] Oral 300 240 Output: Urine 300 600 Other: Voiding Method Indwelling Catheter Indwelling Catheter - Labs CBC & Chem 7: 12/06/18 08:45 12/06/18 08:45 Labs: Abnormal Lab Results - Last 24 Hours (Table) 12/06/18 12/06/18 Range/Units 08:45 08:45 RBC 3.40 L (3.80-5.40) m/uL Hgb 10.8 L (11.4-16.0) gm/dL Hct 33.1 L (34.0-46.0) % RDW 16.0 H (11.5-15.5) % Lymphocytes # 0.7 L (1.0-4.8) k/uL Sodium 134 L (137-145) mmol/L BUN 4 L (7-17) mg/dL Creatinine 0.42 L (0.52-1.04) mg/dL Glucose 143 H (74-99) mg/dL Calcium 8.2 L (8.4-10.2) mg/dL <Mathew Cuellar - Last Filed: 12/06/18 17:40> Subjective As above. Patient complaining of mild nausea. She had a headache earlier today. Continue ice chips only for now. Monitor blood pressure and repeat labs tomorrow. Objective - Vital Signs Vital signs: Vital Signs Temp 97.9 F 12/06/18 15:00 Pulse 71 12/06/18 15:00 Resp 16 12/06/18 15:00 BP 97/59 12/06/18 15:00 Pulse Ox 97 12/06/18 15:00 Intake & Output 12/05/18 12/06/18 12/06/18 18:59 06:59 18:59 Intake Total 779 587 6333.867 Output Total 632 591 0665 Balance 0 -360 -345.133 Intake: Intake, IV Titration 1054.867 Amount D5-0.45% NaCl with KCl 1000 20Meq/l 1,000 ml @ 125 mls/hr IV .Q8H [facility] Rx#: [id number] Ropivacaine 250 mg 54.867 Hydromorphone (Pf) 5 mg In Sodium Chloride 0.9% 200 ml @ Per Protocol EPIDURAL .Q0M PRN Rx#: [id number] Oral 300 240 Output: Urine 798 357 4126 Other: Voiding Method Indwelling Catheter Indwelling Catheter - Labs CBC & Chem 7: 12/06/18 08:45 12/06/18 08:45 Labs: Abnormal Lab Results - Last 24 Hours (Table) 12/06/18 12/06/18 Range/Units 08:45 08:45 RBC 3.40 L (3.80-5.40) m/uL Hgb 10.8 L (11.4-16.0) gm/dL Hct 33.1 L (34.0-46.0) % RDW 16.0 H (11.5-15.5) % Lymphocytes # 0.7 L (1.0-4.8) k/uL Sodium 134 L (137-145) mmol/L BUN 4 L (7-17) mg/dL Creatinine 0.42 L (0.52-1.04) mg/dL Glucose 143 H (74-99) mg/dL Calcium 8.2 L (8.4-10.2) mg/dL
--- NOTE | 2018-12-06 13:50 | P.PN ---
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 Cook with a previous medical history significant for hypertension and hypertensive cardio vascular disease, hyperlipidemia, hypothyroidism, GERD, asthma, history of significant diverticulitis for which she was recently hospitalized in October 2018 for left sigmoid diverticulitis with perforation and she ended up going for low anterior resection of the sigmoid With end-to-end anastomosis, and we were asked to see the patient for medical management. Patient is laying down in bed in no apparent distress she denies any chest pain, shortness breath, she currently has an epidural catheter in place, she continues to be on IV fluid, she has an abdominal binder in place, her abdominal pain is controlled at this point, she is not having any nausea, or vomiting. 12/05: Patient is complaining of vertigo. She is continued on epidural which was decreased this morning. She is complaining of lower abdominal muscle spasms. Reynoso catheter is in place. Repeat potassium is at 4.5 and magnesium 1.7. Patient states that she is having difficulty waking up and feels very drowsy. Patient's epidural may need to be decreased further today. 12/06: Patient remains afebrile, heart rate 92, blood pressure 99/64, pulse ox 100% on 6 L. White count normal at 7.7, hemoglobin 10.8. Pathology report pending. Patient states her nausea is much improved this morning after adjustments of May to her epidural which will most likely be discontinued tomorrow. Reynoso catheter remains in place. She is currently tolerating liquid diet. She is using her incentive spirometry every hour 10 times. Walker has been ordered for home. Anticipate discharge over the weekend. Objective - Vital Signs Vital signs: Vital Signs Temp 98.6 F 12/06/18 07:00 Pulse 92 12/06/18 07:51 Resp 16 12/06/18 07:00 BP 99/64 12/06/18 07:00 Pulse Ox 100 12/06/18 07:00 Intake & Output 12/05/18 12/06/18 12/06/18 18:59 06:59 18:59 Intake Total 300 240 54.867 Output Total 300 600 Balance 0 -360 54.867 Intake: Intake, IV Titration 54.867 Amount Ropivacaine 250 mg 54.867 Hydromorphone (Pf) 5 mg In Sodium Chloride 0.9% 200 ml @ Per Protocol EPIDURAL .Q0M PRN Rx#: [id number] Oral 300 240 Output: Urine 300 600 Other: Voiding Method Indwelling Catheter - Exam Review of Systems Constitutional: Denies chronic headaches, Denies lethargy, Denies malaise, Denies weakness. Denies dizziness. Eyes: denies blurred vision, denies bulging eye, denies decreased vision Ears: deny: decreased hearing Ears, nose, mouth and throat: Denies dysphagia, Denies neck lump, Denies swelling in throat, Denies sore throat Cardiovascular: Denies chest pain, Denies decreased exercise tolerance, Denies lightheadedness, Denies rapid heart beat, Denies shortness of breath, Denies syncope Respiratory: Denies congestion, Denies cough, Denies cough with sputum, Denies respiratory infections, Denies sleep apnea, Denies snoring, Denies wheezing Gastrointestinal: Reports abdominal pain, Denies BRBPR, Denies excessive gas, Denies hematemesis, Denies hematochezia, Denies loss of appetite, Denies melena, Denies nausea, Denies vomiting Genitourinary: Denies dysuria, Denies hematuria Musculoskeletal: Denies myalgias Musculoskeletal: absent: ankle pain, ankle stiffness, ankle swelling, elbow pain, elbow stiffness, elbow swelling, foot pain, foot stiffness, foot swelling, hand pain, hand stiffness, hand swelling, hip pain, hip stiffness, hip swelling, knee pain, knee stiffness, knee swelling, shoulder pain, shoulder stiffness, shoulder swelling, wrist pain, wrist stiffness, wrist swelling Integumentary: Denies pruritus, Denies rash Neurological: Denies numbness, Denies weakness Psychiatric: Denies anxiety, Denies depression Endocrine: Denies fatigue, Denies weight change Physical exam: - Constitutional General appearance: average body habitus, no acute distress, resting comfortably in bed - EENT Eyes: anicteric sclerae, EOMI, PERRLA, no ptosis, no scleral icterus, normal appearance ENT: hearing grossly normal, NA/AT, normal oropharynx, no thrush Ears: bilateral: normal - Neck Neck: no lymphadenopathy, normal ROM, no rigidity, no stridor, no thyromegaly Carotids: bilateral: upstroke normal Thyroid: bilateral: normal size - Respiratory Respiratory: bilateral: diminished, negative: dullness, rales, rhonchi, wheezing, prolonged expiration - Cardiovascular Rhythm: regular Heart sounds: normal: S1, S2 Abnormal Heart Sounds: no systolic murmur, no diastolic murmur, no S3 Gallop, no S4 Gallop, no click - Gastrointestinal General gastrointestinal: decreased bowel sounds, soft, tenderness (Incision covered with a dressing and abdominal binder.) Epidural in place. - Integumentary Integumentary: normal, normal turgor - Neurologic Neurologic: CNII-XII intact - Musculoskeletal Musculoskeletal: strength equal bilaterally - Psychiatric Psychiatric: A&O x's 3, appropriate affect, intact judgment & insight - Labs CBC & Chem 7: 12/06/18 08:45 12/06/18 08:45 Labs: Abnormal Lab Results - Last 24 Hours (Table) 12/06/18 Range/Units 08:45 RBC 3.40 L (3.80-5.40) m/uL Hgb 10.8 L (11.4-16.0) gm/dL Hct 33.1 L (34.0-46.0) % RDW 16.0 H (11.5-15.5) % Lymphocytes # 0.7 L (1.0-4.8) k/uL Assessment and Plan Plan: 1. Postoperative day #2 status post low anterior resection of the sigmoid due to significant diverticulitis. Patient is currently on clear liquid diet but change to ice chips and popsicles due to nausea which seems to be improved after adjustments made to epidural medication. Continue DVT prophylaxis, continue with GI prophylaxis, home medication will be addressed, continue to use incentive spirometer to reduce the incidence of atelectasis and healthcare associated pneumonia. Patient is on Entereg. IV fluids have been discontinued. 2. Hypertension and hypertensive cardiovascular disease. Hold off Atacand/hydrochlorothiazide today as blood pressure is on the low side. 3. Hypothyroidism. Resume levothyroxine 25 g orally once every day tomorrow morning. 4. Asthma, mild intermittent. Stable at this time continue with nebulized treatment as needed. 5. DVT prophylaxis. Continue patient on heparin 5000 units subcutaneously every 8 hours. 6. GI prophylaxis. Continue patient on Pepcid 20 mg IV push every 12 hours. 7. Thank you for the consult we will follow with you. Discharge plan: Home with [facility], most likely over the weekend depending on patient's progress. Impression and plan of care have been directed as dictated by the signing physician. Talia Mejia nurse practitioner acting as scribe for signing physician.
[2018-12-06] MEDS: METOCLOPRAMIDE 5 MG/ML 2 ML VIAL IVP PRN (17:10)
[2018-12-07] MEDS: LACTATED RINGERS 1,000 ML IV SCH (02:26)
[2018-12-07] MEDS: LEVOTHYROXINE 25 MCG TAB PO SCH (05:18)
[2018-12-07] MEDS: KETOROLAC 30 MG/ML 1 ML VIAL IVP PRN (05:19)
[2018-12-07] MEDS: ONDANSETRON 4 MG/2 ML VIAL IVP PRN (05:21)
[2018-12-07] MEDS: ALBUTEROL NEBULIZED 2.5 MG/3 ML INHALATION PRN (07:44)
[2018-12-07 08:11] LABS: Anisocytosis Slight; Basophils % (A) 0 %; Eosinophils # (A) 0.2 k/uL (0-0.7); Eosinophils % (A) 3 %; HCT 30.8 % (34.0-46.0); HGB 10.3 gm/dL (11.4-16.0); Lymphocytes # (A) 0.8 k/uL (1.0-4.8); Lymphocytes % (A) 13 %; MCH 31.9 pg (25.0-35.0); MCHC 33.3 g/dL (31.0-37.0); MCV 95.8 fL (80.0-100.0); Mean Platelet Volume 6.9; Monocytes # (A) 0.3 k/uL (0-1.0); Monocytes % (A) 4 %; Neutrophils # (A) 5.1 k/uL (1.3-7.7); Neutrophils % (A) 80 %; Platelet Count 237 k/uL (150-450); RBC 3.22 m/uL (3.80-5.40); RDW 16.2 % (11.5-15.5); WBC 6.3 k/uL (3.8-10.6)
[2018-12-07] MEDS: ALVIMOPAN 12 MG CAPSULE PO SCH ×2 (08:39→20:44)
[2018-12-07] MEDS: ALLOPURINOL 300 MG TAB PO SCH (08:39)
[2018-12-07] MEDS: FAMOTIDINE 20 MG/2 ML VIAL IV SCH ×2 (08:39→20:44)
[2018-12-07] MEDS: HEPARIN SODIUM,PORCINE 5,000 UNIT/ML 1 ML VIAL SQ SCH ×3 (08:40→23:41)
[2018-12-07 08:45] LABS: African American GFR (CKD) >90 (>60 ml/min/1.73 sqM); Anion Gap 4 mmol/L; Blood Urea Nitrogen 3 mg/dL (7-17); Calcium 8.3 mg/dL (8.4-10.2); Carbon Dioxide 28 mmol/L (22-30); Chloride 105 mmol/L (98-107); Glucose 116 mg/dL (74-99); Potassium 4.3 mmol/L (3.5-5.1); Sodium 137 mmol/L (137-145)
--- NOTE | 2018-12-07 09:41 | P.PN ---
Subjective Progress Note Date: 12/07/18 Principal diagnosis: Diverticulitis Patient doing better today. Her nausea has resolved. No flatus. She is thirsty. Epidural still in place although coming out today. White blood cell count 6.3 Objective - Vital Signs Vital signs: Vital Signs Temp 98.1 F 12/07/18 07:00 Pulse 80 12/07/18 07:59 Resp 16 12/07/18 07:44 BP 112/68 12/07/18 07:00 Pulse Ox 98 12/07/18 07:44 Intake & Output 12/06/18 12/07/18 12/07/18 18:59 06:59 18:59 Intake Total 1054.867 240 Output Total 1400 1300 Balance -345.133 -1060 Intake: Intake, IV Titration 1054.867 Amount D5-0.45% NaCl with KCl 1000 20Meq/l 1,000 ml @ 125 mls/hr IV .Q8H [facility] Rx#: [id number] Ropivacaine 250 mg 54.867 Hydromorphone (Pf) 5 mg In Sodium Chloride 0.9% 200 ml @ Per Protocol EPIDURAL .Q0M PRN Rx#: [id number] Oral 240 Output: Urine 1400 1300 Other: Voiding Method Indwelling Catheter Indwelling Catheter Indwelling Catheter - Exam Abdomen: Soft, nondistended, incision clean and dry, mild tenderness - Labs CBC & Chem 7: 12/07/18 07:04 12/07/18 07:04 Labs: Abnormal Lab Results - Last 24 Hours (Table) 12/06/18 12/07/18 12/07/18 Range/Units 08:45 07:04 07:04 RBC 3.22 L (3.80-5.40) m/uL Hgb 10.3 L (11.4-16.0) gm/dL Hct 30.8 L (34.0-46.0) % RDW 16.2 H (11.5-15.5) % Lymphocytes # 0.8 L (1.0-4.8) k/uL Sodium 134 L (137-145) mmol/L BUN 4 L 3 L (7-17) mg/dL Creatinine 0.42 L 0.43 L (0.52-1.04) mg/dL Glucose 143 H 116 H (74-99) mg/dL Calcium 8.2 L 8.3 L (8.4-10.2) mg/dL Assessment and Plan (1) Diverticulitis Narrative/Plan: Patient doing well at this time. We'll start clear liquids. Remove epidural today. Increase activity. Current Visit: Yes Status: Acute Code(s): K57.92 - DVTRCLI OF INTEST, PART UNSP, W/O PERF OR ABSCESS W/O BLEED SNOMED Code(s): 565845433
--- NOTE | 2018-12-07 09:44 | P.PN ---
Progress Note - Text Progress Note Date: 12/07/18 POD 3, epidural helping, having some issue with hypotension and pain. Surgeon requesting to remove today. Patient doing well, no parasthesia or weakness in lower ext. we nikolay d/c today after 4 hours of heparin being withheld.
[2018-12-07] MEDS: METOCLOPRAMIDE 5 MG/ML 2 ML VIAL IVP PRN (11:55)
[2018-12-07] MEDS: KETOROLAC 30 MG/ML 1 ML VIAL IVP SCH ×3 (11:56→23:39)
[2018-12-07] MEDS: D5-0.45% NACL WITH KCL 20MEQ/L 1,000 ML IV SCH ×3 (15:52→20:44)
[2018-12-07] MEDS: HYDROcodone/APAP 5-325MG 1 EACH TAB PO PRN ×2 (15:53→20:50)
--- NOTE | 2018-12-07 21:42 | P.PN ---
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 Patient is laying down in bed in no apparent distress she denies any chest pain, shortness breath, she currently has an epidural catheter in place, she continues to be on IV fluid, she has an abdominal binder in place, her abdominal pain is controlled at this point, she is not having any nausea, or vomiting. 12/05: Patient is complaining of vertigo. She is continued on epidural which was decreased this morning. She is complaining of lower abdominal muscle spasms. Reynoso catheter is in place. Repeat potassium is at 4.5 and magnesium 1.7. Patient states that she is having difficulty waking up and feels very drowsy. Patient's epidural may need to be decreased further today. 12/06: Patient remains afebrile, heart rate 92, blood pressure 99/64, pulse ox 100% on 6 L. White count normal at 7.7, hemoglobin 10.8. Pathology report pending. Patient states her nausea is much improved this morning after adjustments of May to her epidural which will most likely be discontinued tomorrow. Reynoso catheter remains in place. She is currently tolerating liquid diet. She is using her incentive spirometry every hour 10 times. Walker has been ordered for home. Anticipate discharge over the weekend. 824: Patient is doing much better after epidural catheter has been discontinued, nausea is improved, has small factors, no bowel movement, tolerating clears liquid diet, no lightheadedness no dizziness, no chest pain patient will be attempting more activities today as the epidurals been discontinued, Reynoso catheter will be discontinued today Objective - Vital Signs Vital signs: Vital Signs Temp 98.7 F 12/07/18 20:40 Pulse 80 12/07/18 20:40 Resp 16 12/07/18 20:40 BP 122/75 12/07/18 20:40 Pulse Ox 97 12/07/18 20:40 Intake & Output 0812/07/18 12/08/18 06:59 18:59 06:59 Intake Total 240 Output Total 1300 3600 Balance -1060 -3600 Intake: Oral 240 Output: Urine 1300 3600 Uretheral (Reynoso) 1700 Other: Voiding Method Indwelling Catheter Indwelling Catheter - Constitutional General appearance: Present: cooperative, no acute distress - EENT Eyes: Present: anicteric sclerae, EOMI, PERRLA, dentition normal, normal appearance ENT: Present: NA/AT, normal oropharynx - Neck Neck: Present: normal ROM - Respiratory Respiratory: bilateral: CTA, negative: diminished, dullness, rales - Cardiovascular Rhythm: regular Heart sounds: normal: S1 Abnormal Heart Sounds: Absent: systolic murmur, diastolic murmur, rub, S3 Gallop, S4 Gallop, click, other - Gastrointestinal General gastrointestinal: Present: decreased bowel sounds, soft - Integumentary Integumentary: Present: decreased turgor, normal - Neurologic Neurologic: Present: CNII-XII intact - Musculoskeletal Musculoskeletal: Present: gait normal, strength equal bilaterally - Psychiatric Psychiatric: Present: A&O x's 3 - Labs CBC & Chem 7: 12/07/18 07:04 12/07/18 07:04 Labs: Abnormal Lab Results - Last 24 Hours (Table) 12/07/18 12/07/18 Range/Units 07:04 07:04 RBC 3.22 L (3.80-5.40) m/uL Hgb 10.3 L (11.4-16.0) gm/dL Hct 30.8 L (34.0-46.0) % RDW 16.2 H (11.5-15.5) % Lymphocytes # 0.8 L (1.0-4.8) k/uL BUN 3 L (7-17) mg/dL Creatinine 0.43 L (0.52-1.04) mg/dL Glucose 116 H (74-99) mg/dL Calcium 8.3 L (8.4-10.2) mg/dL Assessment and Plan Plan: 1. Postoperative day #3 status post low anterior resection of the sigmoid due to significant diverticulitis. Patient is currently on clear liquid diet but change to ice chips and popsicles due to nausea which seems to be improved after epidural has been discontinued. Continue DVT prophylaxis, continue with GI prophylaxis, home medication will be addressed, continue to use incentive spirometer to reduce the incidence of atelectasis and healthcare associated pneumonia. Patient is on Entereg. IV fluids have been discontinued. 2. Hypertension and hypertensive cardiovascular disease. Hold off Atacand/hydrochlorothiazide today as blood pressure is on the low side. 3. Hypothyroidism. Resume levothyroxine 25 g orally once every day tomorrow morning. 4. Asthma, mild intermittent. Stable at this time continue with nebulized treatment as needed. 5. DVT prophylaxis. Continue patient on heparin 5000 units subcutaneously every 8 hours. 6. GI prophylaxis. Continue patient on Pepcid 20 mg IV push every 12 hours. Discharge plan: Home with [facility], most likely over the weekend depending on patient's progress.
[2018-12-08 02:33] LABS: Appearance,Urine Clear (Clear); Bilirubin,Urine Negative (Negative); Blood,Urine Negative (Negative); Color,Urine Colorless; Glucose,Urine (UA) Negative (Negative); Ketones,Urine Negative (Negative); Leukocyte Esterase,Urine Negative (Negative); Nitrite,Urine Negative (Negative); PH, Urine 7.5 (5.0-8.0); Protein,Urine Negative (Negative); Specific Gravity,Urine 1.005 (1.001-1.035); Urobilinogen,Urine <2.0 mg/dL (<2.0)
[2018-12-08] MEDS: HYDROcodone/APAP 5-325MG 1 EACH TAB PO PRN ×4 (03:14→19:45)
[2018-12-08] MEDS: KETOROLAC 30 MG/ML 1 ML VIAL IVP SCH ×4 (05:23→23:37)
[2018-12-08] MEDS: LEVOTHYROXINE 25 MCG TAB PO SCH (05:23)
[2018-12-08] MEDS: LACTATED RINGERS 1,000 ML IV SCH (05:26)
[2018-12-08 08:01] LABS: Basophils % (A) 1 %; Eosinophils # (A) 0.2 k/uL (0-0.7); Eosinophils % (A) 4 %; HCT 34.1 % (34.0-46.0); HGB 11.1 gm/dL (11.4-16.0); Lymphocytes # (A) 0.8 k/uL (1.0-4.8); Lymphocytes % (A) 14 %; MCH 31.2 pg (25.0-35.0); MCHC 32.5 g/dL (31.0-37.0); MCV 96.1 fL (80.0-100.0); Mean Platelet Volume 6.7; Monocytes # (A) 0.4 k/uL (0-1.0); Monocytes % (A) 7 %; Neutrophils # (A) 3.9 k/uL (1.3-7.7); Neutrophils % (A) 72 %; Platelet Count 258 k/uL (150-450); RBC 3.55 m/uL (3.80-5.40); RDW 15.2 % (11.5-15.5); WBC 5.5 k/uL (3.8-10.6)
[2018-12-08] MEDS: FAMOTIDINE 20 MG/2 ML VIAL IV SCH (08:04)
[2018-12-08] MEDS: HEPARIN SODIUM,PORCINE 5,000 UNIT/ML 1 ML VIAL SQ SCH ×3 (08:04→23:37)
[2018-12-08] MEDS: ALVIMOPAN 12 MG CAPSULE PO SCH ×2 (08:04→19:45)
[2018-12-08] MEDS: ALLOPURINOL 300 MG TAB PO SCH (08:05)
[2018-12-08 08:18] LABS: African American GFR (CKD) >90 (>60 ml/min/1.73 sqM); Anion Gap 6 mmol/L; Blood Urea Nitrogen 2 mg/dL (7-17); Calcium 8.8 mg/dL (8.4-10.2); Carbon Dioxide 29 mmol/L (22-30); Chloride 103 mmol/L (98-107); Glucose 109 mg/dL (74-99); Potassium 3.7 mmol/L (3.5-5.1); Sodium 138 mmol/L (137-145)
--- NOTE | 2018-12-08 10:30 | P.PN ---
Subjective Progress Note Date: 12/08/18 Principal diagnosis: Diverticulitis Patient doing fairly well. Epidural catheter came out yesterday. She did have a small bowel movement. She also had a small nosebleed. Her fluids have been saline locked. She is afebrile. Objective - Vital Signs Vital signs: Vital Signs Temp 98.6 F 12/08/18 07:00 Pulse 78 12/08/18 07:00 Resp 17 12/08/18 07:00 BP 126/82 12/08/18 07:00 Pulse Ox 96 12/08/18 07:00 Intake & Output 12/07/18 12/08/18 12/08/18 18:59 06:59 18:59 Intake Total 960 Output Total 3600 Balance -3600 960 Intake: Oral 960 Output: Urine 3600 Uretheral (Reynoso) 1700 Other: Voiding Method Indwelling Catheter Toilet Toilet # Voids 5 # Bowel Movements 1 - Exam Abdomen: Soft, nondistended, nontender, dressing clean and dry - Labs CBC & Chem 7: 12/08/18 07:26 12/08/18 07:26 Labs: Abnormal Lab Results - Last 24 Hours (Table) 12/08/18 12/08/18 Range/Units 07:26 07:26 RBC 3.55 L (3.80-5.40) m/uL Hgb 11.1 L (11.4-16.0) gm/dL Lymphocytes # 0.8 L (1.0-4.8) k/uL BUN 2 L (7-17) mg/dL Creatinine 0.45 L (0.52-1.04) mg/dL Glucose 109 H (74-99) mg/dL Assessment and Plan (1) Diverticulitis Narrative/Plan: Advance diet to low fiber. Ambulate. Current Visit: Yes Status: Acute Code(s): K57.92 - DVTRCLI OF INTEST, PART UNSP, W/O PERF OR ABSCESS W/O BLEED SNOMED Code(s): 828824014
[2018-12-08] MEDS: D5-0.45% NACL WITH KCL 20MEQ/L 1,000 ML IV SCH ×3 (11:58→20:24)
[2018-12-08] MEDS: FAMOTIDINE 20 MG TAB PO SCH (19:45)
--- NOTE | 2018-12-08 23:32 | P.PN ---
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 Patient is laying down in bed in no apparent distress she denies any chest pain, shortness breath, she currently has an epidural catheter in place, she continues to be on IV fluid, she has an abdominal binder in place, her abdominal pain is controlled at this point, she is not having any nausea, or vomiting. adn 12/05: Patient is complaining of vertigo. She is continued on epidural which was decreased this morning. She is complaining of lower abdominal muscle spasms. Reynoso catheter is in place. Repeat potassium is at 4.5 and magnesium 1.7. Patient states that she is having difficulty waking up and feels very drowsy. Patient's epidural may need to be decreased further today. 12/06: Patient remains afebrile, heart rate 92, blood pressure 99/64, pulse ox 100% on 6 L. White count normal at 7.7, hemoglobin 10.8. Pathology report pending. Patient states her nausea is much improved this morning after adjustments of May to her epidural which will most likely be discontinued tomorrow. Reynoso catheter remains in place. She is currently tolerating liquid diet. She is using her incentive spirometry every hour 10 times. Walker has been ordered for home. Anticipate discharge over the weekend. 824: Patient is doing much better after epidural catheter has been discontinued, nausea is improved, has small factors, no bowel movement, tolerating clears liquid diet, no lightheadedness no dizziness, no chest pain patient will be attempting more activities today as the epidurals been discontinued, Reynoso catheter will be discontinued today 12/08 patient was started on soft diet todayno dizziness, voiding without difficulties, no adn had tolerated it, had normal bowel movment and no nausea, has normal flatus, no abdominal distension no cardioreqpiratory symptoms. Objective - Vital Signs Vital signs: Vital Signs Temp 98.4 F 08/25/19 18:58 Pulse 78 12/08/18 18:58 Resp 16 12/08/18 18:58 BP 128/74 12/08/18 18:58 Pulse Ox 94 L 12/08/18 18:58 Intake & Output 12/08/18 12/08/18 12/09/18 06:59 18:59 06:59 Intake Total 960 Balance 960 Intake: Oral 960 Other: Voiding Method Toilet Toilet # Voids 5 8 # Bowel Movements 1 - Constitutional General appearance: Present: cooperative, no acute distress - EENT Eyes: Present: anicteric sclerae, EOMI, PERRLA, normal appearance ENT: Present: hearing grossly normal, NA/AT, normal oropharynx - Neck Neck: Present: normal ROM - Respiratory Respiratory: bilateral: CTA, negative: diminished, dullness, rales - Cardiovascular Rhythm: regular Heart sounds: normal: S1, S2 Abnormal Heart Sounds: Absent: systolic murmur, diastolic murmur, rub, S3 Gallop, S4 Gallop, click, other - Gastrointestinal General gastrointestinal: Present: normal bowel sounds - Integumentary Integumentary: Present: decreased turgor, normal - Neurologic Neurologic: Present: CNII-XII intact, focal deficits - Musculoskeletal Musculoskeletal: Present: gait normal, strength equal bilaterally - Psychiatric Psychiatric: Present: A&O x's 3, appropriate affect - Labs CBC & Chem 7: 12/08/18 07:26 12/08/18 07:26 Labs: Abnormal Lab Results - Last 24 Hours (Table) 12/08/18 12/08/18 Range/Units 07:26 07:26 RBC 3.55 L (3.80-5.40) m/uL Hgb 11.1 L (11.4-16.0) gm/dL Lymphocytes # 0.8 L (1.0-4.8) k/uL BUN 2 L (7-17) mg/dL Creatinine 0.45 L (0.52-1.04) mg/dL Glucose 109 H (74-99) mg/dL Assessment and Plan Plan: 1. Postoperative day #4 status post low anterior resection of the sigmoid due to significant diverticulitis. Patient is currently on soft diet, all gi symptoms improved after epidural has been discontinued. Continue DVT prophylaxis, continue with GI prophylaxis, continue to use incentive spirometer to reduce the incidence of atelectasis and healthcare associated pneumonia. Patient is on Entereg. IV fluids have been discontinued. 2. Hypertension and hypertensive cardiovascular disease. Hold off Atacand/hydrochlorothiazide today as blood pressure is on the low side. 3. Hypothyroidism. Resume levothyroxine 25 g orally once every day tomorrow morning. 4. Asthma, mild intermittent. Stable at this time continue with nebulized treatment as needed. 5. DVT prophylaxis. Continue patient on heparin 5000 units subcutaneously every 8 hours. 6. GI prophylaxis. Continue patient on Pepcid 20 mg IV push every 12 hours. Discharge plan: Home with [facility], most likely over the weekend depending on patient's progress.
[2018-12-09] MEDS: HYDROcodone/APAP 5-325MG 1 EACH TAB PO PRN ×5 (04:22→22:39)
[2018-12-09] MEDS: LEVOTHYROXINE 25 MCG TAB PO SCH (05:34)
[2018-12-09] MEDS: KETOROLAC 30 MG/ML 1 ML VIAL IVP SCH (05:34)
[2018-12-09] MEDS: LACTATED RINGERS 1,000 ML IV SCH ×2 (05:35→23:34)
[2018-12-09 08:31] LABS: Basophils # (A) 0.1 k/uL (0-0.2); Basophils % (A) 1 %; Eosinophils # (A) 0.3 k/uL (0-0.7); Eosinophils % (A) 6 %; HCT 38.6 % (34.0-46.0); HGB 12.6 gm/dL (11.4-16.0); Lymphocytes # (A) 0.8 k/uL (1.0-4.8); Lymphocytes % (A) 16 %; MCH 31.1 pg (25.0-35.0); MCHC 32.5 g/dL (31.0-37.0); MCV 95.6 fL (80.0-100.0); Mean Platelet Volume 6.9; Monocytes # (A) 0.4 k/uL (0-1.0); Monocytes % (A) 7 %; Neutrophils # (A) 3.5 k/uL (1.3-7.7); Neutrophils % (A) 68 %; Platelet Count 297 k/uL (150-450); RBC 4.04 m/uL (3.80-5.40); RDW 15.1 % (11.5-15.5); WBC 5.2 k/uL (3.8-10.6)
[2018-12-09 08:49] LABS: African American GFR (CKD) >90 (>60 ml/min/1.73 sqM); Anion Gap 9 mmol/L; Blood Urea Nitrogen 8 mg/dL (7-17); Calcium 9.4 mg/dL (8.4-10.2); Carbon Dioxide 31 mmol/L (22-30); Chloride 99 mmol/L (98-107); Glucose 93 mg/dL (74-99); Potassium 3.5 mmol/L (3.5-5.1); Sodium 139 mmol/L (137-145)
[2018-12-09] MEDS: D5-0.45% NACL WITH KCL 20MEQ/L 1,000 ML IV SCH ×3 (10:11→20:12)
[2018-12-09] MEDS: FAMOTIDINE 20 MG TAB PO SCH ×2 (10:12→20:12)
[2018-12-09] MEDS: ALLOPURINOL 300 MG TAB PO SCH (10:12)
[2018-12-09] MEDS: HEPARIN SODIUM,PORCINE 5,000 UNIT/ML 1 ML VIAL SQ SCH ×3 (10:12→23:31)
--- NOTE | 2018-12-09 14:18 | P.PN ---
Progress Note - Text Progress Note Date: 12/09/18 The patient states she feels well. She's had flatus and a small bowel movement. On exam her vital signs are stable. Her abdomen soft. Patient will be most likely discharge home tomorrow. She is progressing nicely from her low anterior resection.
--- NOTE | 2018-12-09 16:24 | P.PN ---
Subjective Progress Note Date: 12/09/18 This is a 72-year-old female one of Dr. Cook with a previous medical history significant for hypertension and hypertensive cardio vascular disease, hyperlipidemia, hypothyroidism, GERD, asthma, history of significant diverticulitis for which she was recently hospitalized in October 2018 for left sigmoid diverticulitis with perforation and she ended up going for low anterior resection of the sigmoid With end-to-end anastomosis, and we were asked to see the patient for medical management. Patient is laying down in bed in no apparent distress she denies any chest pain, shortness breath, she currently has an epidural catheter in place, she continues to be on IV fluid, she has an abdominal binder in place, her abdominal pain is controlled at this point, she is not having any nausea, or vomiting. adn 12/05: Patient is complaining of vertigo. She is continued on epidural which was decreased this morning. She is complaining of lower abdominal muscle spasms. Reynoso catheter is in place. Repeat potassium is at 4.5 and magnesium 1.7. Patient states that she is having difficulty waking up and feels very drowsy. Patient's epidural may need to be decreased further today. 12/06: Patient remains afebrile, heart rate 92, blood pressure 99/64, pulse ox 100% on 6 L. White count normal at 7.7, hemoglobin 10.8. Pathology report pending. Patient states her nausea is much improved this morning after adjustments of May to her epidural which will most likely be discontinued tomorrow. Reynoso catheter remains in place. She is currently tolerating liquid diet. She is using her incentive spirometry every hour 10 times. Walker has been ordered for home. Anticipate discharge over the weekend. 824: Patient is doing much better after epidural catheter has been discontinued, nausea is improved, has small factors, no bowel movement, tolerating clears liquid diet, no lightheadedness no dizziness, no chest pain patient will be attempting more activities today as the epidurals been discontinued, Reynoso catheter will be discontinued today 12/08 patient was started on soft diet todayno dizziness, voiding without difficulties, no adn had tolerated it, had normal bowel movment and no nausea, has normal flatus, no abdominal distension no cardioreqpiratory symptoms. 12/09: Patient is tolerating soft diet. She is passing gas. She has had 1 small bowel movement. She has been afebrile, heart rate 67, blood pressure 146/82, pulse ox 95% on room air. CBC is within normal limits, patient is scheduled for discharge home tomorrow. Objective - Vital Signs Vital signs: Vital Signs Temp 99.1 F 12/09/18 07:00 Pulse 67 12/09/18 07:00 Resp 17 12/09/18 07:00 BP 146/82 12/09/18 07:00 Pulse Ox 95 12/09/18 07:00 Intake & Output 12/08/18 12/09/18 12/09/18 18:59 06:59 18:59 Intake Total 720 Balance 720 Intake: Oral 720 Other: Voiding Method Toilet # Voids 8 3 - Exam Review of Systems Constitutional: Denies chronic headaches, Denies lethargy, Denies malaise, Denies weakness. Denies dizziness. Eyes: denies blurred vision, denies bulging eye, denies decreased vision Ears: deny: decreased hearing Ears, nose, mouth and throat: Denies dysphagia, Denies neck lump, Denies swelling in throat, Denies sore throat Cardiovascular: Denies chest pain, Denies decreased exercise tolerance, Denies lightheadedness, Denies rapid heart beat, Denies shortness of breath, Denies syncope Respiratory: Denies congestion, Denies cough, Denies cough with sputum, Denies respiratory infections, Denies sleep apnea, Denies snoring, Denies wheezing Gastrointestinal: Reports abdominal pain, Denies BRBPR, Denies excessive gas, Denies hematemesis, Denies hematochezia, Denies loss of appetite, Denies melena, Denies nausea, Denies vomiting Genitourinary: Denies dysuria, Denies hematuria Musculoskeletal: Denies myalgias Musculoskeletal: absent: ankle pain, ankle stiffness, ankle swelling, elbow pain, elbow stiffness, elbow swelling, foot pain, foot stiffness, foot swelling, hand pain, hand stiffness, hand swelling, hip pain, hip stiffness, hip swelling, knee pain, knee stiffness, knee swelling, shoulder pain, shoulder stiffness, shoulder swelling, wrist pain, wrist stiffness, wrist swelling Integumentary: Denies pruritus, Denies rash Neurological: Denies numbness, Denies weakness Psychiatric: Denies anxiety, Denies depression Endocrine: Denies fatigue, Denies weight change Physical exam: - Constitutional General appearance: average body habitus, no acute distress, resting comfortably in bed - EENT Eyes: anicteric sclerae, EOMI, PERRLA, no ptosis, no scleral icterus, normal a ppearance ENT: hearing grossly normal, NA/AT, normal oropharynx, no thrush Ears: bilateral: normal - Neck Neck: no lymphadenopathy, normal ROM, no rigidity, no stridor, no thyromegaly Carotids: bilateral: upstroke normal Thyroid: bilateral: normal size - Respiratory Respiratory: bilateral: diminished, negative: dullness, rales, rhonchi, wheezing, prolonged expiration - Cardiovascular Rhythm: regular Heart sounds: normal: S1, S2 Abnormal Heart Sounds: no systolic murmur, no diastolic murmur, no S3 Gallop, no S4 Gallop, no click - Gastrointestinal General gastrointestinal: decreased bowel sounds, soft, tenderness (Incision covered with a dressing and abdominal binder.) Epidural in place. - Integumentary Integumentary: normal, normal turgor - Neurologic Neurologic: CNII-XII intact - Musculoskeletal Musculoskeletal: strength equal bilaterally - Psychiatric Psychiatric: A&O x's 3, appropriate affect, intact judgment & insight - Labs CBC & Chem 7: 12/09/18 07:32 12/09/18 07:32 Labs: Abnormal Lab Results - Last 24 Hours (Table) 12/09/18 12/09/18 Range/Units 07:32 07:32 Lymphocytes # 0.8 L (1.0-4.8) k/uL Carbon Dioxide 31 H (22-30) mmol/L Assessment and Plan Plan: 1. Postoperative day #5 status post low anterior resection of the sigmoid due to significant diverticulitis. Patient is currently on clear liquid diet but change to ice chips and popsicles due to nausea which seems to be improved after adjustments made to epidural medication. Continue DVT prophylaxis, continue with GI prophylaxis, home medication will be addressed, continue to use incentive spirometer to reduce the incidence of atelectasis and healthcare associated pneumonia. Patient is on Entereg. IV fluids have been discontinued. 2. Hypertension and hypertensive cardiovascular disease. Hold off Atacand/hydrochlorothiazide today as blood pressure is on the low side. 3. Hypothyroidism. Resume levothyroxine 25 g orally once every day tomorrow morning. 4. Asthma, mild intermittent. Stable at this time continue with nebulized treatment as needed. 5. DVT prophylaxis. Continue patient on heparin 5000 units subcutaneously every 8 hours. 6. GI prophylaxis. Continue patient on Pepcid 20 mg IV push every 12 hours. 7. Thank you for the consult we will follow with you. Discharge plan: Home with [facility] tomorrow Impression and plan of care have been directed as dictated by the signing physician. Talia Mejia nurse practitioner acting as scribe for signing physician.
[2018-12-10] MEDS: HYDROcodone/APAP 5-325MG 1 EACH TAB PO PRN ×3 (05:17→13:12)
[2018-12-10] MEDS: LEVOTHYROXINE 25 MCG TAB PO SCH (05:17)
[2018-12-10 08:24] VITALS: BP 121/82; PULSE 83; RESP 18; TEMP 99.5
[2018-12-10] MEDS: FAMOTIDINE 20 MG TAB PO SCH (09:12)
[2018-12-10] MEDS: HEPARIN SODIUM,PORCINE 5,000 UNIT/ML 1 ML VIAL SQ SCH (09:12)
[2018-12-10] MEDS: D5-0.45% NACL WITH KCL 20MEQ/L 1,000 ML IV SCH (09:12)
[2018-12-10] MEDS: ALLOPURINOL 300 MG TAB PO SCH (09:12)
--- NOTE | 2018-12-10 12:12 | P.DS ---
Providers Date of admission: 12/04/18 11:52 Expected date of discharge: 12/10/18 Attending physician: Jesus Redmodn Consults: 12/04/18 15:07 Consult Physician Routine Consulting Provider: Michaela Richards Consult Reason/Comments: Medical management Do you want consulting provider notified?: Yes Primary care physician: [facility] Course: This a 73-year-old female who underwent low anterior resection for diverticulitis. Please hospital chart for details. Patient did well postoperatively. Procedures: Low anterior resection Patient Condition at Discharge: Good Plan - Discharge Summary Discharge Rx Participant: Yes New Discharge Prescriptions: New Hydrocodone/Acetaminophen [[place] 5-325] 1 tab PO Q4HR PRN 3 Days #18 tab PRN Reason: Pain No Action Levothyroxine Sodium [Synthroid] 25 mcg PO QAM [place]-3 Acid Ethyl Esters [Lovaza] 3 gm PO TID Candesartan/Hydrochlorothiazid [Atacand Hct 32-12.5 mg Tab] 1 tab PO QAM Cetirizine HCl [Zyrtec] 10 mg PO DAILY Allopurinol [Zyloprim] 300 mg PO DAILY Multivitamins, Thera [Multivitamin (formulary)] 1 tab PO DAILY Vitamin B Complex 1 cap PO DAILY Albuterol Sulfate [Proair Hfa] 1 - 2 puff INHALATION Q6HR PRN PRN Reason: Dyspnea Acetaminophen 650 mg PO DAILY PRN PRN Reason: Pain Discharge Medication List Levothyroxine Sodium [Synthroid] 25 mcg PO QAM 03/17/16 [History] [place]-3 Acid Ethyl Esters [Lovaza] 3 gm PO TID 03/17/16 [History] Candesartan/Hydrochlorothiazid [Atacand Hct 32-12.5 mg Tab] 1 tab PO QAM 06/13/17 [History] Cetirizine HCl [Zyrtec] 10 mg PO DAILY 05/02/18 [History] Allopurinol [Zyloprim] 300 mg PO DAILY 10/13/18 [History] Albuterol Sulfate [Proair Hfa] 1 - 2 puff INHALATION Q6HR PRN 11/29/18 [History] Multivitamins, Thera [Multivitamin (formulary)] 1 tab PO DAILY 11/29/18 [Histo ry] Vitamin B Complex 1 cap PO DAILY 11/29/18 [History] Acetaminophen 650 mg PO DAILY PRN 12/04/18 [History] Hydrocodone/Acetaminophen [[place] 5-325] 1 tab PO Q4HR PRN 3 Days #18 tab 12/05/18 [Rx] Follow up Appointment(s)/Referral(s): [facility], [NON-STAFF] - Reza Cook DO [Primary Care Provider] - 12/17/18 2:00 pm Jesus Redmond MD [STAFF PHYSICIAN] - 12/19/18 3:00 pm Patient Instructions/Handouts: Diverticulitis (DC), Bowel Resection (DC) Activity/Diet/Wound Care/Special Instructions: No driving while taking [place] No lifting over 10 pounds You may shower. No soaking or tub baths Very light activity until you are reevaluated at your follow up appointment with your surgeon Discharge Disposition: HOME SELF-CARE
--- NOTE | 2018-12-10 16:14 | P.PN ---
Subjective Progress Note Date: 12/10/18 This is a 72-year-old female one of Dr. Cook with a previous medical history significant for hypertension and hypertensive cardio vascular disease, hyperlipidemia, hypothyroidism, GERD, asthma, history of significant diverticulitis for which she was recently hospitalized in October 2018 for left sigmoid diverticulitis with perforation and she ended up going for low anterior resection of the sigmoid With end-to-end anastomosis, and we were asked to see the patient for medical management. Patient is laying down in bed in no apparent distress she denies any chest pain, shortness breath, she currently has an epidural catheter in place, she continues to be on IV fluid, she has an abdominal binder in place, her abdominal pain is controlled at this point, she is not having any nausea, or vomiting. adn 12/05: Patient is complaining of vertigo. She is continued on epidural which was decreased this morning. She is complaining of lower abdominal muscle spasms. Reynoso catheter is in place. Repeat potassium is at 4.5 and magnesium 1.7. Patient states that she is having difficulty waking up and feels very drowsy. Patient's epidural may need to be decreased further today. 12/06: Patient remains afebrile, heart rate 92, blood pressure 99/64, pulse ox 100% on 6 L. White count normal at 7.7, hemoglobin 10.8. Pathology report pending. Patient states her nausea is much improved this morning after adjustments of May to her epidural which will most likely be discontinued tomorrow. Reynoso catheter remains in place. She is currently tolerating liquid diet. She is using her incentive spirometry every hour 10 times. Walker has been ordered for home. Anticipate discharge over the weekend. 824: Patient is doing much better after epidural catheter has been discontinued, nausea is improved, has small factors, no bowel movement, tolerating clears liquid diet, no lightheadedness no dizziness, no chest pain patient will be attempting more activities today as the epidurals been discontinued, Reynoso catheter will be discontinued today 12/08 patient was started on soft diet todayno dizziness, voiding without difficulties, no adn had tolerated it, had normal bowel movment and no nausea, has normal flatus, no abdominal distension no cardioreqpiratory symptoms. 12/09: Patient is tolerating soft diet. She is passing gas. She has had 1 small bowel movement. She has been afebrile, heart rate 67, blood pressure 146/82, pulse ox 95% on room air. CBC is within normal limits, patient is scheduled for discharge home tomorrow. 12/10: Patient denies any new complaints. Pain is well controlled. No nausea or vomiting. She is scheduled for discharge home today. Objective - Vital Signs Vital signs: Vital Signs Temp 99.5 F 12/10/18 07:00 Pulse 83 12/10/18 07:00 Resp 18 12/10/18 07:00 BP 121/82 12/10/18 07:00 Pulse Ox 95 12/10/18 07:00 Intake & Output 12/09/18 12/10/18 12/10/18 18:59 06:59 18:59 Intake Total 480 Balance 480 Intake: Oral 480 Other: Voiding Method Toilet Toilet # Voids 2 2 - Exam Review of Systems Constitutional: Denies chronic headaches, Denies lethargy, Denies malaise, Denies weakness. Denies dizziness. Eyes: denies blurred vision, denies bulging eye, denies decreased vision Ears: deny: decreased hearing Ears, nose, mouth and throat: Denies dysphagia, Denies neck lump, Denies swelling in throat, Denies sore throat Cardiovascular: Denies chest pain, Denies decreased exercise tolerance, Denies lightheadedness, Denies rapid heart beat, Denies shortness of breath, Denies syncope Respiratory: Denies congestion, Denies cough, Denies cough with sputum, Denies respiratory infections, Denies sleep apnea, Denies snoring, Denies wheezing Gastrointestinal: Reports abdominal pain, Denies BRBPR, Denies excessive gas, Denies hematemesis, Denies hematochezia, Denies loss of appetite, Denies melena, Denies nausea, Denies vomiting Genitourinary: Denies dysuria, Denies hematuria Musculoskeletal: Denies myalgias Musculoskeletal: absent: ankle pain, ankle stiffness, ankle swelling, elbow pain, elbow stiffness, elbow swelling, foot pain, foot stiffness, foot swelling, hand pain, hand stiffness, hand swelling, hip pain, hip stiffness, hip swelling, knee pain, knee stiffness, knee swelling, shoulder pain, shoulder stiffness, shoulder swelling, wrist pain, wrist stiffness, wrist swelling Integumentary: Denies pruritus, Denies rash Neurological: Denies numbness, Denies weakness Psychiatric: Denies anxiety, Denies depression Endocrine: Denies fatigue, Denies weight change Physical exam: - Constitutional General appearance: average body habitus, no acute distress, resting comfortably in bed - EENT Eyes: anicteric sclerae, EOMI, PERRLA, no ptosis, no scleral icterus, normal appearance ENT: hearing grossly normal, NA/AT, normal oropharynx, no thrush Ears: bilateral: normal - Neck Neck: no lymphadenopathy, normal ROM, no rigidity, no stridor, no thyromegaly Carotids: bilateral: upstroke normal Thyroid: bilateral: normal size - Respiratory Respiratory: bilateral: diminished, negative: dullness, rales, rhonchi, wheezing, prolonged expiration - Cardiovascular Rhythm: regular Heart sounds: normal: S1, S2 Abnormal Heart Sounds: no systolic murmur, no diastolic murmur, no S3 Gallop, no S4 Gallop, no click - Gastrointestinal General gastrointestinal: Normal bowel sounds, soft, no tenderness - Integumentary Integumentary: normal, normal turgor - Neurologic Neurologic: CNII-XII intact - Musculoskeletal Musculoskeletal: strength equal bilaterally - Psychiatric Psychiatric: A&O x's 3, appropriate affect, intact judgment & insight - Labs CBC & Chem 7: 12/09/18 07:32 12/09/18 07:32 Assessment and Plan Plan: 1. Postoperative day #6 status post low anterior resection of the sigmoid due to significant diverticulitis. Patient is currently on clear liquid diet but change to ice chips and popsicles due to nausea which seems to be improved after adjustments made to epidural medication. Continue DVT prophylaxis, continue with GI prophylaxis, home medication will be addressed, continue to use incentive spirometer to reduce the incidence of atelectasis and healthcare associated pneumonia. Patient is on Entereg. IV fluids have been discontinued. 2. Hypertension and hypertensive cardiovascular disease. Hold off Atacand/hydrochlorothiazide today as blood pressure is on the low side. 3. Hypothyroidism. Resume levothyroxine 25 g orally once every day tomorrow morning. 4. Asthma, mild intermittent. Stable at this time continue with nebulized treatment as needed. 5. DVT prophylaxis. Continue patient on heparin 5000 units subcutaneously every 8 hours. 6. GI prophylaxis. Continue patient on Pepcid 20 mg IV push every 12 hours. 7. Thank you for the consult we will follow with you. Discharge plan: Home with [facility] today Impression and plan of care have been directed as dictated by the signing physician. Talia Mejia nurse practitioner acting as scribe for signing physician.
== END 2018-12-10 13:37 | disposition home health service (06) | DRG 331 ==
LOC: 2ORMAIN 11:52 → EDSTATUS 14:00 → 4SSUR 14:44
PROVIDERS: ADMIT Surgery; ATTEND Surgery
PROC: 0DTN0ZZ Resection of Sigmoid Colon, Open Approach (ICD-10-PCS; principal; 2018-12-04 13:45)
PROC: 0DTJ0ZZ Resection of Appendix, Open Approach (ICD-10-PCS; principal; 2018-12-04 13:45)
DX: K57.32 Diverticulitis of large intestine without perforation or abscess without bleeding (principal); E03.9 Hypothyroidism, unspecified; E78.5 Hyperlipidemia, unspecified; I11.9 Hypertensive heart disease without heart failure; K21.9 Gastro-esophageal reflux disease without esophagitis; M62.838 Other muscle spasm; J45.20 Mild intermittent asthma, uncomplicated; M19.90 Unspecified osteoarthritis, unspecified site; M85.80 Other specified disorders of bone density and structure, unspecified site; R51 Headache; I95.9 Hypotension, unspecified; R04.0 Epistaxis; Z79.890 Hormone replacement therapy; Z79.899 Other long term (current) drug therapy; Z83.3 Family history of diabetes mellitus; Z90.49 Acquired absence of other specified parts of digestive tract; Z98.890 Other specified postprocedural states; Z84.89 Family history of other specified conditions; Z88.0 Allergy status to penicillin; Z88.2 Allergy status to sulfonamides; Z90.721 Acquired absence of ovaries, unilateral
CPT/HCPCS: 80048; 81003; 83735; 84132; 85025; 88302; 88307; 94640; 94760

== ENCOUNTER → 2020-02-11 | Outpatient (CLI) | payer MEDICARE ==
[2020-02-11 09:30] VITALS: BP 98/68; PULSE 83; RESP 18; TEMP 97.9
--- NOTE | 2020-02-11 10:38 | P.HPOB ---
History of Present Illness H&P Date: 02/11/20 Chief Complaint: The patient is here for her routine gynecologic exam and ma mmogram. This is a 74-year-old with an LMP of 1999. The patient has been using estrogen vaginal cream because of her history of recurrent urinary tract infections. She states this has been helpful in preventing UTIs. She is not sexually active. She is without gynecologic complaints. Review of Systems She has lost 3 pounds over the past year. She denies respiratory, cardiac and G.I. problems. She denies maltreatment or problems with falling. : she denies any significant problems with urinary leakage but occasionally has to get to the bathroom right away. Past Medical History Past Medical History: Asthma, GERD/Reflux, Hyperlipidemia, Hypertension, Osteoarthritis (OA), Thyroid Disorder Additional Past Medical History / Comment(s): Hypothyroid. Osteopenia.dermoid cyst in 1981, diverticulitis. 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 Dermoid cyst removed in 1981. History of Any Multi-Drug Resistant Organisms: None Reported Past Surgical History: Cholecystectomy, Orthopedic Surgery Additional Past Surgical History / Comment(s): right ankle, rt oopherectomy for dermoid cyst 1981. Colon Resection 2019(diverticulitis), 04/05/2018 Lap meeta for hiatal hernia. Colonoscopy 2014. Past Anesthesia/Blood Transfusion Reactions: Family History of Problems w/ Anesthesia, Postoperative Nausea & Vomiting (PONV) Additional Past Anesthesia/Blood Transfusion Reaction / Comment(s): sister has PONV Past Psychological History: Depression Smoking Status: Never smoker Past Alcohol Use History: Occasional (1-2 small glasses of wine per week) Past Drug Use History: None Reported Additional History: The patient has been since 2012 and is not seeing anybody at this time and is not sexually active. 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 - Past Family History Mother Family Medical History: No Reported History Father Family Medical History: Diabetes Mellitus Brother(s) Family Medical History: No Reported History Sister(s) Family Medical History: No Reported History Son(s) Family Medical History: No Reported History Daughter(s) Family Medical History: No Reported History Medications and Allergies Home Medications Medication Instructions Recorded Confirmed Type Levothyroxine Sodium [Synthroid] 25 mcg PO QAM 03/17/16 02/11/20 History [place]-3 Acid Ethyl Esters [Lovaza] 3 gm PO TID 03/17/16 02/11/20 History Candesartan/Hydrochlorothiazid 1 tab PO QAM 06/13/17 02/11/20 History [Atacand Hct 32-12.5 mg Tab] Cetirizine HCl [Zyrtec] 10 mg PO DAILY 05/02/18 02/11/20 History allopurinoL [Zyloprim] 300 mg PO DAILY 10/13/18 02/11/20 History Albuterol Sulfate [Proair Hfa] 1 - 2 puff INHALATION Q6HR PRN 11/29/18 02/11/20 History Multivitamins, Thera [Multivitamin 1 tab PO DAILY 11/29/18 02/11/20 History (formulary)] Vitamin B Complex 1 cap PO DAILY 11/29/18 02/11/20 History Acetaminophen 650 mg PO DAILY PRN 12/04/18 02/11/20 History Estradiol Cream [Estrace Cream 1 gm VAGINAL DIRECTED #1 tube 02/11/20 Rx 0.01%] Allergies Allergy/AdvReac Type Severity Reaction Status Date / Time Penicillins Allergy Severe Rash/Hives Verified 02/11/20 09:22 Sulfa (Sulfonamide Allergy Rash/Hives Verified 02/11/20 09:22 Antibiotics) Exam Vital Signs Temp Pulse Resp BP Pulse Ox 02/11/20 09:24 97.9 F 83 18 98/68 96 Intake and Output 02/10/20 02/11/20 02/11/20 22:59 06:59 14:59 Other: Weight 69.4 kg Height 5 feet 3 inches, weight 153 pounds, BMI 27.1. This is a well-developed well-nourished white female who is alert and oriented times 3 in no acute distress. HEENT: Within normal limits. NECK: Supple without mass or thyromegaly. CHEST AND LUNGS: Clear to auscultation. HEART: Regular rate and rhythm. BREASTS: Are without mass or discharge. AXILLARY EXAM: Negative for adenopathy. BACK: Negative for CVA tenderness. ABDOMEN: Soft, nontender, without palpable masses. PELVIC EXAM: Normal external genitalia with moderate atrophy. Cervix and vagina appear normal to moderate atrophy. There is no unusual discharge. There is no evidence of prolapse. The uterus is midposition, nongravid size and nontender. There are no palpable adnexal masses or tenderness. RECTAL EXAM: Rectovaginal exam is negative for mass or tenderness and is negative for occult blood. EXTREMITIES: Nontender. IMPRESSION: 1. 74-year-old menopausal female with normal gynecologic exam. 2. Improvement in her recurrent urinary tract infections with estradiol vaginal cream. 3. History of osteopenia PLAN: 1. Pap smear was performed. She had a previous negative Pap smear in 2018. Once we have obtained 3 consecutive negative Pap smears, we will consider discontinuing Pap smears. 2. Self breast awareness was discussed with the patient. 3. Screening mammogram will be done today. 4. Osteoporosis prevention was discussed. I have stressed the importance of adequate calcium, vitamin D and regular exercise. Recommended amounts of calcium and vitamin D were also discussed. Bone density testing will be done today. 5. She states she is planning on scheduling a colonoscopy in the near future. 6. She states she does not get flu shots and does not plan on getting one this year. 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 7. Continue estradiol vaginal cream 1 g twice weekly into the vagina. The electronic prescription was sent to [facility] pharmacy in [facility]. 8. The patient was advised to return in 1-2 years for her well woman examination.
--- NOTE | 2020-02-11 14:23 | BD ---
EXAMINATION TYPE: Axial Bone Density DATE OF EXAM: 02/11/2020 COMPARISON: NONE CLINICAL HISTORY: Height: 53 Weight: 153 FRAX RISK QUESTIONS: Alcohol (3 or more units per day): no Family History (Parent hip fracture): yes Glucocorticoids (More than 3mos): no (Ex: prednisone, prednisolone, methylprednisolone, dexamethasone, and hydrocortisone). History of Fracture in Adulthood: yes Secondary Osteoporosis: 1. Type 1 Diabetes: no 2. Hyperthyroidism: no 3. Menopause before 45: no 4. Malnutrition: no 5. Chronic liver disease: no Rheumatoid Arthritis: no Current Tobacco Use: no RISK FACTORS HISTORY OF: Family History of Osteoporosis: yes Active: yes Diet low in dairy products/other sources of calcium: no Postmenopausal woman: age 58 Take estrogen and/or progesterone medications: yes How lon years Lost more than 2 inches in height since high school: no MEDICATIONS: Thyroid Medications: thyroid How Lon years Additional History: EXAM MEASUREMENTS: Bone mineral densitometry was performed using the Accept Software System. Bone mineral density as measured about the Lumbar spine is: ----- L1-L4(G/cm2): 1.324 T Score Values are as follows: ----- L2: -0.7 ----- L3: 2.4 ----- L4: 3.2 ----- L1-L4: 1.2 Bone mineral density has: increased 10.5study of: 06.22.2017 Bone mineral density about the R hip (g/cm2): 0.876 Bone mineral density about the L hip (g/cm2): 0.867 T Score values are as follows: -----R Neck: -1.2 -----L Neck: -1.2 -----R Total: -0.5 -----L Total: -0.4 Bone mineral density has: decreased -5.1 % since study of: 06.22.2017 IMPRESSION: Osteopenia (T Score between -2.5 and -1). There is slightly increased risk of fracture and the patient may be considered for treatment. Re-Screen 2-5 years. NOTE: T-SCORE=SD OF THE YOUNG ADULT MEAN.
--- NOTE | 2020-02-13 12:16 | MM ---
Reason for exam: screening (asymptomatic). Last mammogram was performed 1 year and 8 months ago. History: Patient is postmenopausal, has history of other cancer at age 64, and had first child at age 34. Taking estrogen for 2 years. Physical Findings: A clinical breast exam by your physician is recommended on an annual basis and results should be correlated with mammographic findings. MG 3D Screening Mammo W/Cad Bilateral CC and MLO view(s) were taken. Prior study comparison: June 25, 2018, bilateral MG 3d screening mammo w/cad. June 13, 2017, bilateral MG 3d screening mammo w/cad. There are scattered fibroglandular densities. Benign appearing bilateral calcifications. No significant changes when compared with prior studies. ASSESSMENT: Benign, BI-RAD 2 RECOMMENDATION: Routine screening mammogram of both breasts in 1 year.
--- NOTE | 2020-02-18 13:26 | P.PN ---
Progress Note - Text Progress Note Date: 02/18/20 OUTPATIENT FOLLOW-UP NOTE TEST(S)/RESULTS: test results from 02/11/2020 include negative Pap smear and benign mammogram. Bone density showed fairly stable osteopenia METHOD OF NOTIFICATION: the patient was notified by phone. PATIENT COMMENTS: the patient is happy to hear these results. DIAGNOSIS: negative Pap smear and benign mammogram. Osteopenia. DISCUSSION: I have stressed the importance of getting adequate calcium, vitamin D, and regular exercise. We will plan on repeating the bone density test in approximately 2-3 years. PLAN: The patient was advised to return in 1-2 years for her well woman examination.
== END | disposition home or self-care (01) ==
LOC: WWCWWP 09:04
PROVIDERS: ATTEND Obstetrics & Gynecology
DX: Z12.31 Encounter for screening mammogram for malignant neoplasm of breast (principal); M85.80 Other specified disorders of bone density and structure, unspecified site; Z78.0 Asymptomatic menopausal state
CPT/HCPCS: 77063; 77067; 77080

== ENCOUNTER → 2021-03-22 | Outpatient (CLI) | payer MEDICARE ==
[2021-03-22 11:00] VITALS: BP 120/82; PULSE 75; RESP 18; TEMP 98.2
--- NOTE | 2021-03-22 11:43 | P.HPOB ---
History of Present Illness H&P Date: 03/22/21 Chief Complaint: The patient is here for her routine gynecologic exam and ma mmogram. This is a 75-year-old with an LMP of 1999. The patient has been using estrogen cream in to the vagina and around the urethral opening to help decrease urinary tract infections. She states it has been helpful in this respect. She is not sexually active. She has noticed some burning when she urinates in the morning, but this seems to go away later in the morning. She denies urinary urgency. She is otherwise without complaints. Review of Systems The patient has lost 3 pounds over the last year. She denies respiratory, cardiac, or G.I. problems. : See the HPI. Past Medical History Past Medical History: Asthma, GERD/Reflux, Hyperlipidemia, Hypertension, Osteoarthritis (OA), Thyroid Disorder Additional Past Medical History / Comment(s): Hypothyroid. Osteopenia. diverticulitis. 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 Dermoid cyst removed in 1981. History of Any Multi-Drug Resistant Organisms: None Reported Past Surgical History: Cholecystectomy, Orthopedic Surgery Additional Past Surgical History / Comment(s): right ankle, rt oopherectomy for dermoid cyst 1981. Colon Resection 2019(diverticulitis), 04/05/2018 Lap meeta for hiatal hernia. Colonoscopy 2014. Past Anesthesia/Blood Transfusion Reactions: Family History of Problems w/ Anesthesia, Postoperative Nausea & Vomiting (PONV) Additional Past Anesthesia/Blood Transfusion Reaction / Comment(s): sister has PONV Past Psychological History: Depression Smoking Status: Never smoker Past Alcohol Use History: Occasional (1 per week) Past Drug Use History: None Reported Additional History: The patient has been since 2012 and is not seeing anybody at this time and has not been sexually active. 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 - Past Family History Mother Family Medical History: No Reported History Father Family Medical History: Diabetes Mellitus Brother(s) Family Medical History: No Reported History Sister(s) Family Medical History: No Reported History Son(s) Family Medical History: No Reported History Daughter(s) Family Medical History: No Reported History Medications and Allergies Home Medications Medication Instructions Recorded Confirmed Type Levothyroxine Sodium [Synthroid] 100 mcg PO QAM 03/17/16 03/22/21 History [place]-3 Acid Ethyl Esters [Lovaza] 3 gm PO TID 03/17/16 03/22/21 History Cetirizine HCl [Zyrtec] 10 mg PO DAILY 05/02/18 03/22/21 History allopurinoL [Zyloprim] 300 mg PO DAILY 10/13/18 03/22/21 History Albuterol Sulfate [Proair Hfa] 1 - 2 puff INHALATION Q6HR PRN 11/29/18 03/22/21 History Multivitamins, Thera [Multivitamin 1 tab PO DAILY 11/29/18 03/22/21 History (formulary)] Vitamin B Complex 1 cap PO DAILY 11/29/18 03/22/21 History Acetaminophen 650 mg PO DAILY PRN 12/04/18 03/22/21 History Estradiol Cream [Estrace Cream 1 gm VAGINAL DIRECTED #1 tube 02/11/20 03/22/21 Rx 0.01%] amLODIPine BESYLATE 5 mg PO DAILY 03/22/21 03/22/21 History Allergies Allergy/AdvReac Type Severity Reaction Status Date / Time Penicillins Allergy Severe Rash/Hives Verified 03/22/21 10:52 Sulfa (Sulfonamide Allergy Rash/Hives Verified 03/22/21 10:52 Antibiotics) Exam Vital Signs Temp Pulse Resp BP Pulse Ox 03/22/21 10:52 98.2 F 75 18 120/82 98 Intake and Output 03/21/21 03/22/21 03/22/21 22:59 06:59 14:59 Other: Weight 68.039 kg Height 5 feet 3 inches, weight 150 pounds, BMI 26.6. This is a well-developed well-nourished white female who is alert and oriented times 3 in no acute distress. HEENT: Within normal limits. NECK: Supple without mass or thyromegaly. CHEST AND LUNGS: Clear to auscultation. HEART: Regular rate and rhythm. BREASTS: Are without mass or discharge. AXILLARY EXAM: Negative for adenopathy. BACK: Negative for CVA tenderness. ABDOMEN: Soft, nontender, without palpable masses. PELVIC EXAM: Normal external genitalia with mild to moderate atrophy. Cervix and vagina appear normal with mild to moderate atrophy. There is no unusual discharge. There is no evidence of prolapse. The uterus is midposition, nongravid size and nontender. There are no palpable adnexal masses or tenderness. RECTAL EXAM: Rectovaginal exam is negative for mass or tenderness and is negative for occult blood. EXTREMITIES: Nontender. IMPRESSION: 1. 75-year-old menopausal female with normal gynecologic exam. 2. History of recurrent UTIs improved with vaginal estrogen cream. 3. Morning dysuria which improves later in the morning. Differential diagnosis will include urinary tract infection and transient dysuria secondary to concentrated urine. 4. History of osteopenia. PLAN: 1. Pap smear was deferred since she had a normal one on 02/11/2020. Pap smears will be discontinued after the next 1 if it is negative since we will then have 3 negative Pap smears in a row. 2. Self breast awareness was discussed with the patient. We have also discussed symptoms associated with inflammatory breast cancer. 3. Screening mammogram will be done today. 4. Urine has been obtained for urinalysis and culture with sensitivity. 5. Continue estrogen vaginal cream as directed to help decrease urinary tract infections. The electronic prescription will be sent to [facility] in [place]. 6. She has not received Covid vaccination. 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 I have recommended that she speak with her primary care physician regarding the Covid vaccination and 2 risks and benefits of getting the Covid vaccination. 7. She was advised to return in one year for her annual well woman exam.
[2021-03-22 16:58] LABS: Appearance,Urine Turbid (Clear); Bacteria,Urine Rare /hpf; Bilirubin,Urine Negative (Negative); Blood,Urine Moderate (Negative); Budding Yeast,Urine Few /hpf; Color,Urine Yellow; Glucose,Urine (UA) Negative (Negative); Ketones,Urine Negative (Negative); Leukocyte Esterase,Urine Large (Negative); Mucus,Urine Rare /hpf; Nitrite,Urine Negative (Negative); PH, Urine 6.5 (5.0-8.0); Protein,Urine Trace (Negative); RBC,Urine 78 /hpf (0-5); Specific Gravity,Urine 1.018 (1.001-1.035); Squamous Epithelial Cell,Urine 2 /hpf (0-4); Urobilinogen,Urine <2.0 mg/dL (<2.0); WBC,Urine >182 /hpf (0-5)
--- NOTE | 2021-03-23 10:53 | P.PN ---
Progress Note - Text Progress Note Date: 03/23/21 OUTPATIENT FOLLOW-UP NOTE TEST(S)/RESULTS: Urinalysis done on 03/22/2021 is consistent with UTI with large leukocyte esterase and moderate blood. METHOD OF NOTIFICATION: A message with this result was left on the patient's voicemail. PATIENT COMMENTS: DIAGNOSIS: Cystitis UTI DISCUSSION: The patient will be treated with Macrobid 1 by mouth twice a day 7 days. I will notify the patient on her voicemail that the prescription will be sent to [facility] on [facility]. PLAN: As above. We will also await the urine culture results.
--- NOTE | 2021-03-24 12:10 | MM ---
Reason for exam: screening (asymptomatic). Last mammogram was performed 1 year and 1 month ago. History: Patient is postmenopausal, has history of other cancer at age 64, and had first child at age 34. Taking estrogen for 2 years. Physical Findings: A clinical breast exam by your physician is recommended on an annual basis and results should be correlated with mammographic findings. MG 3D Screening Mammo W/Cad Bilateral CC and MLO view(s) were taken. Prior study comparison: February 11, 2020, bilateral MG 3d screening mammo w/cad. June 25, 2018, bilateral MG 3d screening mammo w/cad. There are scattered fibroglandular densities. No significant changes when compared with prior studies. ASSESSMENT: Benign, BI-RAD 2 RECOMMENDATION: Routine screening mammogram of both breasts in 1 year.
--- NOTE | 2021-03-29 10:52 | P.PN ---
Progress Note - Text Progress Note Date: 03/29/21 The patient called saying she had taken the Macrobid for 4 days but was having some mood changes and headache and didn't feel very good with nausea but no fever. She has had a slight back discomfort. She went to an urgent care clinic and a state they gave her a prescription for Cipro which made her feel sick so she discontinued it. She then started taking the Macrobid again. The Macrobid was mistakenly only taken once daily instead of twice daily as prescribed. She states she will take the Macrobid twice daily as instructed and she was also instructed to take it with food. Now that she knows she should take the Macrobid twice a day she will make that change. She was instructed to contact her urologist if she is having worsening symptoms or problems with UTI. This would include things like fever or worsening back discomfort.
== END ==
LOC: WWCWWP 10:38
PROVIDERS: ATTEND Obstetrics & Gynecology
DX: Z12.31 Encounter for screening mammogram for malignant neoplasm of breast (principal); R30.0 Dysuria; J45.909 Unspecified asthma, uncomplicated; K21.9 Gastro-esophageal reflux disease without esophagitis; E78.5 Hyperlipidemia, unspecified; I10 Essential (primary) hypertension; E03.9 Hypothyroidism, unspecified; F32.A Depression, unspecified; M19.90 Unspecified osteoarthritis, unspecified site; Z87.39 Personal history of other diseases of the musculoskeletal system and connective tissue; Z79.890 Hormone replacement therapy; Z79.899 Other long term (current) drug therapy; Z88.0 Allergy status to penicillin; Z88.2 Allergy status to sulfonamides
CPT/HCPCS: 77063; 77067; 81001; 87077; 87086; 87186

== ENCOUNTER → 2022-05-16 | Outpatient (CLI) | payer MEDICARE ==
[2022-05-16 11:17] VITALS: BP 156/89; PULSE 73; RESP 16; TEMP 97.8
--- NOTE | 2022-05-16 12:22 | P.HPOB ---
History of Present Illness H&P Date: 05/16/22 Chief Complaint: The patient is here for her routine gynecologic exam and ma mmogram. This is a 76-year-old with an LMP of 2000. The patient is without gynecologic complaints, but states she would like to be tested for a UTI. She has gotten to UTIs during the past year. She has used estrogen vaginal cream which has been helpful in decreasing the frequency of UTIs. She has had slight urinary frequency of urination, but thinks this may be because of her increased green tea intake. She denies urinary urgency or dysuria. She is otherwise without complaints and denies any postmenopausal bleeding. Review of Systems The patient has gained 5 pounds over the last year. She denies respiratory, cardiac, or G.I. problems. Past Medical History Past Medical History: Asthma, GERD/Reflux, Hyperlipidemia, Hypertension, Osteoarthritis (OA), Thyroid Disorder Additional Past Medical History / Comment(s): Hypothyroid. Osteopenia. diverticulitis. 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 Dermoid cyst removed in 1981. History of Any Multi-Drug Resistant Organisms: None Reported Past Surgical History: Cholecystectomy, Orthopedic Surgery Additional Past Surgical History / Comment(s): right ankle, rt oopherectomy for dermoid cyst 1981. Colon Resection 2019(diverticulitis), 04/05/2018 Lap meeta for hiatal hernia. Colonoscopy 2014. Past Anesthesia/Blood Transfusion Reactions: Family History of Problems w/ Anesthesia, Postoperative Nausea & Vomiting (PONV) Additional Past Anesthesia/Blood Transfusion Reaction / Comment(s): sister has PONV Past Psychological History: Depression Smoking Status: Never smoker Past Alcohol Use History: Rare (10 per year) Past Drug Use History: None Reported Additional History: The patient has been since 2012 and is not seeing anybody at this time and has not been sexually active. 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 - Past Family History Mother Family Medical History: No Reported History Father Family Medical History: Diabetes Mellitus Brother(s) Family Medical History: No Reported History Sister(s) Family Medical History: No Reported History Son(s) Family Medical History: No Reported History Daughter(s) Family Medical History: No Reported History Medications and Allergies Home Medications Medication Instructions Recorded Confirmed Type Levothyroxine Sodium [Synthroid] 100 mcg PO QAM 03/17/16 05/16/22 History [place]-3 Acid Ethyl Esters [Lovaza] 3 gm PO TID 03/17/16 05/16/22 History Cetirizine HCl [Zyrtec] 10 mg PO DAILY 05/02/18 05/16/22 History allopurinoL [Zyloprim] 300 mg PO DAILY 10/13/18 05/16/22 History Albuterol Sulfate [Proair Hfa] 1 - 2 puff INHALATION Q6HR PRN 11/29/18 05/16/22 History Multivitamins, Thera [Multivitamin 1 tab PO DAILY 11/29/18 05/16/22 History (formulary)] Vitamin B Complex 1 cap PO DAILY 11/29/18 05/16/22 History Acetaminophen 650 mg PO DAILY PRN 12/04/18 05/16/22 History Estradiol Cream [Estrace Cream 1 gm VAGINAL DIRECTED #1 each 03/22/21 05/16/22 Rx 0.01%] amLODIPine BESYLATE 5 mg PO DAILY 03/22/21 05/16/22 History Allergies Allergy/AdvReac Type Severity Reaction Status Date / Time Penicillins Allergy Severe Rash/Hives Verified 05/16/22 11:10 Sulfa (Sulfonamide Allergy Rash/Hives Verified 05/16/22 11:10 Antibiotics) Exam Vital Signs Temp Pulse Resp BP Pulse Ox 05/16/22 11:13 97.8 F 73 16 156/89 99 Intake and Output 05/15/22 05/16/22 05/16/22 22:59 06:59 14:59 Other: Weight 70.307 kg Height 5 feet 3 inches, weight 155 pounds, BMI 27.5. This is a well-developed well-nourished white female who is alert and oriented times 3 in no acute distress. HEENT: Within normal limits. NECK: Supple without mass or thyromegaly. CHEST AND LUNGS: Clear to auscultation. HEART: Regular rate and rhythm. BREASTS: Are without mass or discharge. AXILLARY EXAM: Negative for adenopathy. BACK: Negative for CVA tenderness. ABDOMEN: Soft, nontender, without palpable masses. PELVIC EXAM: Normal external genitalia with mild to moderate atrophy. Cervix and vagina appear normal with mild to moderate atrophy. There is no unusual discharge. There is no evidence of prolapse. The uterus is midposition, nongravid size and nontender. There are no palpable adnexal masses or tenderness. RECTAL EXAM: Rectovaginal exam is negative for mass or tenderness and is negative for occult blood. EXTREMITIES: Nontender. IMPRESSION: 1. 76-year-old menopausal female with normal gynecologic exam. 2. History recurrent UTIs improved with vaginal estrogen cream. Mild urinary frequency. 3. History of osteopenia. 4. Elevated blood pressure with history of chronic hypertension. PLAN: 1. Pap smear was deferred. Last Pap smear was in 2019 and this was a negative Pap smear cotest. We will plan on repeating the Pap smear in approximately 1-2 years and if this is negative, we will discontinue Pap smears. She has had 2 negative Pap smears with me since 2018. 2. Self breast awareness was discussed with the patient. We have also discussed symptoms associated with inflammatory breast cancer. 3. Screening mammogram will be done today. 4. Clean catch midstream UA with urine culture will be obtained. 5. Osteoporosis prevention was discussed. I have stressed the importance of adequate calcium, vitamin D and regular exercise. Recommended amounts of calcium and vitamin D were also discussed. We will plan on repeating the bone density test in the upcoming year since her last one was on 02/11/2020. The order slip was given to the patient for this. 6. Continue estradiol vaginal cream 1 g into the vagina 2 times weekly. The electronic prescription will be sent to [facility] in [place]. 7. She was advised to return in one year for her annual well woman exam.
[2022-05-17 01:13] LABS: Appearance,Urine Clear (Clear); Bilirubin,Urine Negative (Negative); Blood,Urine Negative (Negative); Color,Urine Yellow (Yellow); Ketones,Urine Negative (Negative); Nitrite,Urine Negative (Negative); PH, Urine 7.5 (5.0-8.0); Urobilinogen,Urine 0.2 (0.2,1.0)
--- NOTE | 2022-05-17 08:35 | MM ---
Reason for Exam: Screening (asymptomatic). Last mammogram was performed 1 year(s) and 1 month(s) ago. Patient History: Menarche at age 14. First Full-Term at age 34. Late child-bearing (after 30). Right ovary removed at age 36. Postmenopausal. Patient has history of breast feeding. Other cancer, age 64. Currently using Estrogen, for 2 years. Risk Values: Hui 5 year model risk: 2.4%. NCI Lifetime model risk: 5.6%. Prior Study Comparison: 04/15/2015 Bilateral Screening Mammogram, [facility]. 06/13/2017 Bilateral Screening Mammogram, [facility]. 06/25/2018 Bilateral Screening Mammogram, [facility]. 02/11/2020 Bilateral Screening Mammogram, [facility]. 03/22/2021 Bilateral Screening Mammogram, [facility]. Tissue Density: The breast tissue is almost entirely fat. Findings: Analyzed By CAD. There is no suspicious group of microcalcifications or new suspicious mass in either breast. Overall Assessment: Negative, BI-RAD 1 Management: Screening Mammogram of both breasts in 1 year. A clinical breast exam by your physician is recommended on an annual basis and results should be correlated with mammographic findings. Electronically signed and approved by: Delta Rose M.D. Radiologis
--- NOTE | 2022-05-17 13:56 | P.PN ---
Progress Note - Text Progress Note Date: 05/17/22 OUTPATIENT FOLLOW-UP NOTE TEST(S)/RESULTS: Urinalysis done on 05/16/2022 was negative. METHOD OF NOTIFICATION: The patient was notified by phone. PATIENT COMMENTS: DIAGNOSIS: Negative urinalysis. DISCUSSION: Urine culture is pending. PLAN: Await urine culture. She will continue to use estrogen vaginal cream as directed.
== END ==
LOC: WWCWWP 11:05
PROVIDERS: ATTEND Obstetrics & Gynecology
DX: Z01.419 Encounter for gynecological examination (general) (routine) without abnormal findings (principal); Z12.31 Encounter for screening mammogram for malignant neoplasm of breast; I10 Essential (primary) hypertension; Z87.440 Personal history of urinary (tract) infections; Z87.39 Personal history of other diseases of the musculoskeletal system and connective tissue; J45.909 Unspecified asthma, uncomplicated; K21.9 Gastro-esophageal reflux disease without esophagitis; E78.5 Hyperlipidemia, unspecified; M19.90 Unspecified osteoarthritis, unspecified site; Z88.0 Allergy status to penicillin; Z88.2 Allergy status to sulfonamides
CPT/HCPCS: 77063; 77067; 81003; 87086

== ENCOUNTER → 2024-05-13 | Outpatient (CLI) | payer MEDICARE ==
--- NOTE | 2024-05-13 13:25 | P.HPOB ---
History of Present Illness H&P Date: 05/13/24 Chief Complaint: The patient is here for her routine gynecologic exam and ma mmogram. This is a 78-year-old with an LMP of 2000. Patient is without gynecologic complaints and denies any postmenopausal bleeding. Review of Systems The patient has lost 12 pounds over the last 2 years. She denies respiratory, cardiac, or G.I. problems. Past Medical History Past Medical History: Asthma, GERD/Reflux, Hyperlipidemia, Hypertension, Osteoarthritis (OA), Thyroid Disorder Additional Past Medical History / Comment(s): Hypothyroid. Osteopenia. diverticulitis. 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 Dermoid cyst removed in 1981. History of Any Multi-Drug Resistant Organisms: None Reported Past Surgical History: Appendectomy, Cholecystectomy, Orthopedic Surgery Additional Past Surgical History / Comment(s): right ankle, rt oopherectomy for dermoid cyst 1981. Colon Resection 2019(diverticulitis), 04/05/2018 Lap meeta for hiatal hernia. Colonoscopy 2014. Past Anesthesia/Blood Transfusion Reactions: Family History of Problems w/ Anesthesia, Postoperative Nausea & Vomiting (PONV) Additional Past Anesthesia/Blood Transfusion Reaction / Comment(s): sister has PONV Past Psychological History: Depression Smoking Status: Never smoker Past Alcohol Use History: Rare (4 drinks per year.) Past Drug Use History: None Reported Additional History: The patient has been since 2012. She has not seen anybody at this time and is not sexually active. 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 - Past Family History Mother Family Medical History: No Reported History Father Family Medical History: Diabetes Mellitus Brother(s) Family Medical History: No Reported History Sister(s) Family Medical History: No Reported History Son(s) Family Medical History: No Reported History Daughter(s) Family Medical History: No Reported History Medications and Allergies Home Medications Medication Instructions Recorded Confirmed Type Levothyroxine Sodium [Synthroid] 100 mcg PO QAM 03/17/16 05/16/22 History [place]-3 Acid Ethyl Esters [Lovaza] 3 gm PO TID 03/17/16 05/16/22 History Cetirizine HCl [Zyrtec] 10 mg PO DAILY 05/02/18 05/16/22 History allopurinoL [Zyloprim] 300 mg PO DAILY 10/13/18 05/16/22 History Albuterol Sulfate [Proair Hfa] 1 - 2 puff INHALATION Q6HR PRN 11/29/18 05/16/22 History Multivitamins, Thera [Multivitamin 1 tab PO DAILY 11/29/18 05/16/22 History (formulary)] Vitamin B Complex 1 cap PO DAILY 11/29/18 05/16/22 History Acetaminophen 650 mg PO DAILY PRN 12/04/18 05/16/22 History amLODIPine BESYLATE 5 mg PO DAILY 03/22/21 05/16/22 History Estradiol Cream [Estrace Cream 1 gm VAGINAL DIRECTED #1 each 05/16/22 Rx 0.01%] Allergies Allergy/AdvReac Type Severity Reaction Status Date / Time Penicillins Allergy Severe Rash/Hives Verified 05/16/22 11:10 Sulfa (Sulfonamide Allergy Rash/Hives Verified 05/16/22 11:10 Antibiotics) Exam Blood pressure 167/85, height 5 feet 3 inches, weight 143 pounds, BMI 5, temperature 98.0, pulse 84, pulse oximeter 97%. This is a well-developed well-nourished white female who is alert and oriented times 3 in no acute distress. HEENT: Within normal limits. NECK: Supple without mass or thyromegaly. CHEST AND LUNGS: Clear to auscultation. HEART: Regular rate and rhythm. BREASTS: Are without mass or discharge. AXILLARY EXAM: Negative for adenopathy. BACK: Negative for CVA tenderness. ABDOMEN: Soft, nontender, without palpable masses. PELVIC EXAM: Normal external genitalia with mild to moderate atrophy. Cervix and vagina appear normal with moderate atrophy. The cervix is somewhat stenotic secondary to atrophy. There is no unusual discharge. There is no evidence of prolapse. The uterus is midposition, nongravid size and nontender. There are no palpable adnexal masses or tenderness. RECTAL EXAM: Rectovaginal exam is negative for mass or tenderness and is negative for occult blood. EXTREMITIES: Nontender. IMPRESSION: 1. 78-year-old menopausal female with normal gynecologic exam. 2. History of osteopenia. PLAN: 1. Pap smear cotest was performed. If this is negative, we will plan on discontinuing Pap smears. 2. Self breast awareness was discussed with the patient. We have also discussed symptoms associated with inflammatory breast cancer. 3. Screening mammogram will be done today. 4. Osteoporosis prevention was discussed. I have stressed the importance of adequate calcium, vitamin D and regular exercise. Recommended amounts of calcium and vitamin D were also discussed. Her last bone density test was about 3 years ago. I have recommended that she repeat the bone density test and the order slip was given to the patient for this. 5. The patient was advised to return in 1-2 years for her well woman examination.
[2024-05-13 13:27] VITALS: BP 167/85; PULSE 84; RESP 16; TEMP 98.3
--- NOTE | 2024-05-13 13:46 | MM ---
Reason for Exam: Screening (asymptomatic). Last mammogram was performed 2 year(s) and 0 month(s) ago. Patient History: Menarche at age 14. First Full-Term at age 34. Late child-bearing (after 32). Right ovary removed at age 36. Postmenopausal. Patient has history of breast feeding. Other cancer, age 64. Currently using Estrogen, for 2 years. Risk Values: Hui 5 year model risk: 2.4%. NCI Lifetime model risk: 4.9%. Prior Study Comparison: 02/11/2020 Bilateral Screening Mammogram, [facility]. 03/22/2021 Bilateral Screening Mammogram, [facility]. 05/16/2022 Bilateral MG 3D screening mammo w/cad, [facility]. Tissue Density: There are scattered areas of fibroglandular density. Findings: Analyzed By CAD. Right breast: There is no suspicious group of microcalcifications or new suspicious mass. Left breast: There is no suspicious group of microcalcifications or new suspicious mass. Overall Assessment: Negative, BI-RAD 1 Management: Screening Mammogram of both breasts in [address] [facility] will attempt to contact patient to return for supplemental views and ultrasound if indicated. Patient should continue monthly self-breast exams. A clinical breast exam by your physician is recommended on an annual basis. This exam should not preclude additional follow-up of suspicious palpable abnormalities. Note on Hui scores and lifetime risk: 1. A Hui score greater than 3% is considered moderate risk. If this is the case, consider specialist referral to assess eligibility for a risk reducing agent. 2. If overall lifetime risk for the development of breast cancer is 20% or higher, the patient may qualify for future screening with alternating mammogram and breast MRI. [facility], , 05/13/2024 1:37 PM. Electronically signed and approved by: Eugenio Sotomayor DO
--- NOTE | 2024-05-27 14:40 | P.PN ---
Progress Note - Text Progress Note Date: 05/27/24 OUTPATIENT FOLLOW-UP NOTE TEST(S)/RESULTS: Test results from 05/05/2024 include negative Pap smear with negative high risk HPV (negative cotest) and benign mammogram. METHOD OF NOTIFICATION: A message with these results was left on the patient's voicemail on 05/27/2024. PATIENT COMMENTS: DIAGNOSIS: Negative Pap smear cotest and benign mammogram. DISCUSSION: She has now had 3 negative Pap smear testing in the last 10 years. We will plan on discontinuing Pap smears. PLAN: The patient was advised to return in 1-2 years for her well woman examination.
== END ==
LOC: WWCWWP 12:23
PROVIDERS: ATTEND Obstetrics & Gynecology
DX: Z12.31 Encounter for screening mammogram for malignant neoplasm of breast (principal); N95.9 Unspecified menopausal and perimenopausal disorder; Z87.39 Personal history of other diseases of the musculoskeletal system and connective tissue; Z88.0 Allergy status to penicillin; Z88.2 Allergy status to sulfonamides
CPT/HCPCS: 77063; 77067